=== PATIENT | male | born 1980 | race Caucasian/White ===

== ENCOUNTER 2024-11-28 22:44 | Emergency (ER) | payer SELFPAY ==
[2024-11-28 22:45] VITALS: BP 150/109; PULSE 97; RESP 18; TEMP 36.1; O2SAT 97; BMI 25.7
--- NOTE | 2024-11-28 23:16 | CT_ITS ---
PROCEDURE: ABDOMEN/PELVIS W IV CONT ONLY 11/28/2024 REASON FOR EXAM: RIGHT GROIN ABSCESS VS HERNIA TECHNIQUE: ABDOMEN/PELVIS W IV CONT ONLY Coronal and Sagittal reconstruction series were provided. CONTRAST: Isovue 370 VOLUME: 97 mL One or more dose reduction techniques were used (e.g., Automated exposure control, adjustment of the mA and/or kV according to patient size, use of iterative reconstruction technique. RADIATION DOSE SUMMARY: CTDlvol: 20 mGy DLP: 950 mGycm COMPARISON: No FINDINGS: Clear lung bases. Normal heart size. Liver is within normal limits for size with diffuse hepatic steatosis. Possible medical liver disease. Normal gallbladder, pancreas, spleen, adrenal glands, kidneys. No hydronephrosis. Possible bladder wall hypertrophy. Normal prostate. No retroperitoneal or pelvic adenopathy. No free air. Nondistended bowel. Normal appendix. Diverticulosis. No acute large bowel findings. Lumbar spine degeneration. In the right inguinal region, there is a 1.8 cm cysts/abscess, series 2, image 111, and additional 1 cm cyst/abscess, series 2, image 114, with surrounding fat scanning and overlying skin thickening. No extension to bone or muscle. CT/Abdomen/Pelvis W IV Cont ONLY IMPRESSION: Right inguinal region cysts/abscesses, surrounding cellulitis. Ultrasound guid ed aspiration could be performed if clinically appropriate. Reading Location: [place] [id number]
[2024-11-28] MEDS: 0.9% Normal Saline (1000mL) 1,000 ML 1000 ML IV (23:29)
--- NOTE | 2024-11-28 23:31 | EDS_ITS ---
HPI History of Present Illness Chief Complaint: Other, Pain/Inj Narrative Narrative: Chief complaint and HPI: Right groin pain/swelling. 44-year-old male with history of alcohol abuse and asthma presents for evaluation of right groin pain/swelling. Patient states for several months he has had a small lump in his right groin. States yesterday it became more painful, swollen, red. He states occasionally he gets night sweats but denies any fever, chills, shortness of breath, chest pain, abdominal pain, nausea, vomiting, diarrhea, constipation, dysuria, hematuria, testicular or penile pain, penile discharge. No concern for STI. Patient states that he also developed right ankle swelling/pain today. He states that this is not abnormal for him as he occasionally develops ankle pain and swelling that periodically resolves on its own. He denies any recent surgery or travel. Denies any calf pain. Denies any injury or trauma. Review of systems: See HPI Medications: As listed on the chart Allergies: As listed on the chart PFSH: Per chart Vital signs: As listed on the chart. Reviewed. Physical exam: Gen: A&O x3, NAD Head: Normocephalic, atraumatic Eyes: No sclera icterus, conjunctiva clear ENT: Moist mucous membranes Neck: Trachea midline, No JVD CV: RRR, no murmurs, no peripheral edema Resp: Lungs CTA BL, no w/r/c GI: Abd soft, non-distended, non-tender, no r/r/g : Circumcised penis. No penile tenderness or discharge. No penile or testicular swelling. Normal lie and position of the testicles. No testicular tenderness, masses, or skin changes. Cremasteric reflexes intact and equal bilaterally. No rashes. No palpable hernias. Patient has an area of erythema to the right groin and with fluctuance and warm-suspect abscess-no crepitus Musc: Full ROM, no deformity, strength, +5/5 in all extremities, right ankle mildly tender to palpation diffusely-no swelling/erythema/warmth/ecchymosis, DP/PT pulses +2 bilaterally, good capillary refill, compartments soft, negative Homans' sign Skin: Warm, dry Neuro: Alert, oriented, grossly intact, sensation intact Psych: Cooperative, appropriate mood and affect [facility] Medical History (Updated 11/29/24 @ 01:[address] Hill Perales, DO) Contact with and (suspected) exposure to other viral communicable diseases Home Medications ?Medication ?Instructions ?Recorded ?Last Taken ?Type albuterol sulfate 90 mcg/actuation 1 puff inhalation Q 4H PRN PRN 09/07/13 Unknown History aerosol inhaler (ProAir HFA) Wheezing hydrocortisone 2.5 % topical cream 1 applic topical TI D PRN PRN 09/07/13 Unknown Rx Itching #1 tube lansoprazole 15 mg capsule,delayed 15 mg PO DAILY 08/2811/29/24 History release (Prevacid) amoxicillin 875 mg-potassium 1 tab PO BID 7 days #14 t abs 11/29/24 Unknown Rx clavulanate 125 mg tablet Allergy/AdvReac Type Severity Reaction Status Date / Time No Known Allergies Allergy Verified 11/29/24 01:02 Social History Smoking Status: Current every day smoker tobacco type: cigarettes EXAM Physical Exam Const Vital Signs: 11/28/24 22:45 11/28/24 23:30 11/29/24 00:45 Temperature 97 F L Temperature Source Temporal Pulse Rate 97 87 Respiratory Rate 18 16 Respiratory Effort Normal Non-Labored Respiratory Pattern Normal Blood Pressure 150/109 H 170/134 H Blood Pressure Mean 122 146 Pulse Ox 97 99 Oxygen Delivery Method Room Air Room Air 11/29/24 01:47 Temperature 97.7 F L Temperature Source Pulse Rate 79 Respiratory Rate 16 Respiratory Effort Respiratory Pattern Blood Pressure 162/98 H Blood Pressure Mean 119 Pulse Ox 98 Oxygen Delivery Method MDM MDM MDM Narrative Medical decision making narrative: 44-year-old male with history of alcohol abuse and asthma presents for evaluation of right groin pain/swelling. Patient states for several months he has had a small lump in his right groin. States yesterday it became more painful, swollen, red. He states occasionally he gets night sweats but denies any fever, chills. Also endorses right ankle pain and swelling that started today. States he has a history of this periodically. Denies any injury or trauma. See physical exam findings. Patient's physical exam finding is consistent with a right groin abscess however given that he states that he always has a small lump there with intermittent night sweats cannot rule out hernia, pelvic abscess, bacteremia, UTI. Not consistent with Danika's gangrene. May also be infected cyst. His right ankle is unremarkable. He denies any trauma or injury therefore I do not think any x-rays needed at this time. Low suspicion for DVT however fully cannot rule this out as I do not have vascular ultrasound available at this time. Patient will be given study for DVT outpatient. He confirmed understanding. Laboratory workup ordered including CT abdomen pelvis. CBC without leukocytosis patient has hemoconcentration with a hemoglobin of 17. Platelet count unremarkable. BMP shows hypokalemia of 3.1. P.o. potassium ordered. Lactic acid unremarkable. CT abdomen pelvis shows diffuse hepatic steatosis. Diverticulosis without diverticulitis. In the right inguinal region there is a 1.8 cm cyst/abscess with surrounding cellulitis. No extension to bone or muscle. Patient will require I&D. UA negative for UTI. Patient consented to incision and drainage and tolerated this well. Patient will be placed on a 7-day course of Augmentin. First dose given here. Follow- up with general surgery for wound check as well as PCP. Patient was educated on his fatty liver. He was educated that the potassium was low. Take [id number] potassium replacement for the next several days. Follow-up with PCP to have this rechecked. He confirmed understanding of plan. Return precautions explained. Was educated that packing needs to be removed in 24 hours. Follow-up with primary care physician for his right ankle pain as there is no clear indication for this at this time. Was given outpatient DVT study. Incision and Drainage Indication: Abscess Location: Right groin Consent: Risks, benefits, and alternatives discussed with patient and consent obtained Procedure: The area was prepared and draped in the usual sterile manner. The site was anesthetized with 1% lidocaine with epinephrine. A cruciate incision was made in the skin and minimal purulent material was expressed. The abscess was explored thoroughly, and sequestered pockets were opened. The abscess pocket was irrigated. Bleeding was minimal. The patient tolerated the procedure well without complications. Packin/4 inch iodoform packing Follow-Up: Standard post-procedure care was explained and return precautions were given Impression: 1. Right groin abscess, status post incision and drainage with packing 2. Right ankle pain Lab Data Labs: Laboratory Results - last 24 hr 11/28/24 11/29/24 23:28 00:00 WBC 6.1 RBC 5.16 Hgb 17.0 H Hct 47.0 MCV 91.1 MCH 32.9 H MCHC 36.2 H RDW Std Deviation 40.4 RDW Coeff of Marco A 12.0 Plt Count 211 MPV 9.5 Immature Gran % (Auto) 0.500 Neut % (Auto) 60.5 Lymph % (Auto) 24.8 [place] % (Auto) 9.9 Eos % (Auto) 3.3 Baso % (Auto) 1.0 Absolute Neuts (auto) 3.7 Absolute Lymphs (auto) 1.51 Nucleated RBC % 0 Sodium 140 Potassium 3.1 L Chloride 102 Carbon Dioxide 22.9 Anion Gap 15 BUN 9 Creatinine 0.78 Estim Creat Clear Calc 137.59 Est GFR (MDRD) Non-Af 111 BUN/Creatinine Ratio 11.2 Glucose 104 H Lactic Acid 1.2 Calcium 9.1 Urine Color Straw Urine Clarity Clear Urine pH 6.0 Ur Specific [place] 1.010 Urine Protein 30 H Urine Glucose (UA) Normal Urine Ketones Negative Urine Occult Blood 10 H Urine Nitrite Negative Urine Bilirubin Negative Urine Urobilinogen Normal Ur Leukocyte Esterase Negative Urine RBC 0-5 SEEN Urine WBC 0-5 SEEN Ur Squamous Epith Cells 0 SEEN Urine Bacteria 0 SEEN Urine Mucus 0 SEEN Radiography Diagnostic Testing: Clinical Impression(s) from Imaging Studies Abdomen/Pelvis CT 11/28/24 23:16 IMPRESSION: Right inguinal region cysts/abscesses, surrounding cellulitis. Ultrasound guided aspiration could be performed if clinically appropriate. Reading Location: [place] [address] Discharge Plan Triage Chief Complaint: Other, Pain/Inj ED Provider: Hill Perales Dx/Rx/DC Orders Clinical Impression: Abscess of groin, right, Ankle pain, right Instructions: ED Abscess Incision And Drainage, ED Pain, Acute, Uncertain Cause Prescriptions: New amoxicillin-pot clavulanate 875-125 mg tablet 1 tab PO BID 7 Days Qty: 14 0RF No Action lansoprazole [Prevacid] 15 MG capsule 15 mg PO DAILY albuterol sulfate [ProAir HFA] 1 PUFF inhaler 1 puff inhalation Q4H PRN PRN (Reason: Wheezing) hydrocortisone 1 APPLIC cream 1 applic topical TID PRN PRN (Reason: Itching) Qty: 1 0RF Other Ambulatory Orders: Venous Duplex US, Unilateral (Stat) Facility: [facility] Location[facility] Primary Care Provider: Care Physician,No Primary Referrals: Ector Garcia MD [Med Staff - Active Staff] - 3-5 Days Mike Bee MD [Med Staff - Active Staff] - 3-5 Days Activity Restrictions/Additional Instructions: Follow-up with general surgeon for wound check. Okay to shower in 24 hours and pull out packing at that time. No soaking in the bath tubs, hot tubs, lakes, [place], oceans, swimming pools until fully healed. Take all of your antibiotics. You received the first dose here in the emergency department. Return back to the ED if symptoms change or worsen. Follow-up with your PCP for your right ankle pain. Return back to the ED if worsens. Will give outpatient DVT study. Your potassium was low here in the emergency department take [id number] potassium pills and have it rechecked by your primary care physician. Your CT abdomen pelvis did show fatty liver which you need to follow-up with your doctor. Print Language: Azeri Disposition Disposition: Home, Self Care Discharge Date/Time: 11/29/24 02:00
[2024-11-29 00:04] LABS: Anion Gap 15 (5-15); BUN 9 mg/dL (4-19); BUN/Creat Ratio 11.2 RATIO (10-20); Calcium,Total 9.1 mg/dL (7.6-11.0); Carbon Dioxide 22.9 mmol/L (21.0-32.0); Chloride 102 mmol/L (98-108); Estimated Creatinine Clearance 137.59 ml/min (50-250); Glucose 104 mg/dL (70-99); Potassium 3.1 mmol/L (3.3-5.1)
[2024-11-29 00:09] LABS: Mucous, Urine 0 SEEN /hpf (<or=2+); Squamous Epithelial Cells - UA 0 SEEN /hpf (0-5)
[2024-11-29 00:14] LABS: Hematocrit 47.0 % (40-54); Hemoglobin 17.0 g/dL (13.0-16.5); Immature Granulocytes Count 0.030 X10^3/uL (0.0-0.0); Mean Corp Hgb Conc 36.2 g/dL (32-36); Mean Corpuscular Volume 91.1 fL (80-94); Mean Platelet Vol. 9.5 fl (6.2-12.0); NRBC Flagged by Analyzer 0 % (0-5); Platelet Count 211 K/mm3 (150-450); RBC Distribution Width CV 12.0 % (11.6-14.6); RBC Distribution Width SD 40.4 fl (35.1-43.9); Red Blood Count 5.16 M/mm3 (4.6-6.2); White Blood Count 6.1 K/mm3 (4.4-11.0)
[2024-11-29 00:14] LABS: Color, Urine Straw (Yellow); Glucose, Dipstick Normal (Normal); Ketone-Dipstick Negative (Negative); Leukocyte Esterase-Dipstick Negative /ul (Negative); Nitrite-Dipstick Negative (Negative); Occult Blood-Urine 10 /ul (Negative); Protein-Dipstick 30 mg/dl (Negative); Specific Gravity, Urine 1.010 (1.002-1.030); Urine Bilirubin Dipstick Negative (Negative)
--- OUTSIDE RECORDS SUMMARY | 2024-11-29 00:28 | XMS RPT_ITS | CCD ---
Author Organization [facility] Care Team Providers Care Money Market Dealer Name Role Phone Andre Hughes Attending Unavailable Care Physician, No Primary Referring Unava ilable Care Physician, No Primary Primary Care Unava ilable Problems Problem Classification Problem Date Documented Da te Episodic/Chronic Immunizations and screening for infectious disease (1 source) Contact with and (suspected) exposure to other viral communicable diseases; Translations: [Contact with and (suspected) exposure to other viral communicable diseases] Onset: 05-28-2022 Episodic Results Test Name Value Interpretation Reference Range Facil it Urgent Care Visit Reporton 1 Urgent Care Visit Report [facility] [address] [place] [address] OFFICE VISIT Date of Service: 05/28/22 MR#: [id number] Acct: [id number] Name: HAILEEANNA II Rep #: [id number] : 1980 Provider: RANJEET villarreal Age/Sex: 41/M Location: [facility] Status: Signed Intake Vital Signs 09/07/13 17:05 05/28/22 14:18 Height 6 ft 1 in 6 ft 1.25 in Weight: 191 lb BMI 25.0 BP 140/82 H Blood Pressure Location Lt brachial Position Sitting Respiration 20 H Pulse 86 Pulse Source Monitor Temp 98.4 F Temp Source Temporal Pulse Oximetry (%) 97 Oxygen Delivery Method room air Intake Visit Reasons: RUNNY NOSE, COUGH, DIRRHEA Allergies No Known Allergies Allergy (Verified 05/28/22 14:19) Medications albuterol sulfate 90 mcg/actuation aerosol inhaler (ProAir HFA) 1 puff inhalation Q4H PRN PRN Wheezing 09/07/13 [History Confirmed 05/28/22] hydrocortisone 2.5 % topical cream 1 applic topical TID PRN PRN Itching #1 tube 09/07/13 [Rx Confirmed 05/28/22] lansoprazole 15 mg capsule,delayed release (Prevacid) 15 mg PO DAILY 09/07/13 [History Confirmed 05/28/22] loratadine 10 mg tablet (Allergy Relief (loratadine)) 10 mg PO DAILY 09/07/13 [History Confirmed 05/28/22] [facility] Medical History (Updated 05/28/22 @ 14:46 by Andre Hughes PA, PA) Contact with and (suspected) exposure to other viral communicable diseases Social History Smoking Status: Current every day smoker HPI HPI Details: ANNA STEPHEN, is a 41 M who presents to the office today for 48 hr h/o fever, pierre, fatigue, runny nose, and diarrhea (resolved 24 hrs ago). No cp. sob, quezada. Smoker. Several close contacts with similar complaints. No otc p[roducts taken to assist. No other associated symptoms and no other +/- factors. ROS Const Constitutional: No other (as above) Exam Const General: cooperative, healthy appearing and no acute distress Nutritional Appearance: average body habitus Orientation: alert, awake and oriented x3 HENMT Head: normal to inspection Ears: hearing grossly normal bilaterally, external ears normal, TM's normal bilaterally and EAC's normal Nose: external nose normal, nares normal, septum normal and no nasal discharge Eyes General: appearance normal, both eyes and all related structures Neck Neck: normal visual inspection, full ROM, no lymphadenopathy, no meningeal signs and supple Neck mass: No Thyroid: thyroid normal Lymphatic: no lymphadenopathy noted Chest Chest palpation inspection: normal inspection of the chest Resp Effort Inspection: normal respiratory effort and able to speak in complete sentences Auscultation: Bilateral: Clear to Auscultation Cardio Palpation: normal PMI Rate: regular rate Rhythm: regular rhythm Heart Sounds: S1 normal, S2 normal, no gallops, no murmurs and no rubs Pulses: radial pulses present GI Inspection: normal to inspection Palpation: soft and no hepatosplenomegaly Skin General: no rashes or lesions noted Neuro General: patient alert, patient awake, patient oriented x3 and gait normal Cognition: normal cognition Speech: speech normal Gait: normal gait Motor: muscle tone normal throughout Sensory Exam: no sensory deficits noted Psych Appearance: grossly normal Mental Status: mental status grossly normal Mood: congruent mood Affect: normal affect Speech and Movement: speech and movement normal Attitude: cooperative Thought Process: normal Thought Content: normal Judgment: judgment good Results POC GEETA Covid FluAB PCR POC Geeta Covid PCR Not Detected Last Edit by Nydia David on 05/28/22 14:41 POC GEETA FLU NOT DETECTED FLU A B Last Edit by Nydia David on 05/28/22 14:41 Coding Level of Care Code Off vis,new,level 2 Diagnoses Contact with and (suspected) exposure to other viral communicable diseases Z20.828 Assessment and Plan Assessment and Plan (1) Contact with and (suspected) exposure to other viral communicable diseases: Status: Acute Plan: See POC results. Supportive measures as instructed today. F/u w/ pcp in 5-7 days prn no change, sooner prn worse. Pt states acknowledging understanding all the above. Orders: Orders POC Geeta Covid FLUAB PCR Today 05/28/22 1448 Date Andre POLLACK Cosigner Signature: Date (if applicable) CC: Normal [facility] Encounters Encounter Date Encounter Type Care Provider Facility Start: 05-28-2022 End: 05-28-2022 ambulatory Andre Hughes Facility:[facility] Payers Date Payer Category Payer Self-pay Unknown [id number] Summary Purpose Family History No Family History Records Found Advance Directives No Advanced Directives Records Found Additional Source Comments (unrecognized sect ion and content) No Status Records Found INFORMATION SOURCE (unrecogn ized section and content) DATE CREATED AUTHOR 05/28/2022 [facility] FOR RECORDS PERTAINING TO PATIENTS WHO ARE OR HAVE BEEN ENROLLED IN A CHEMICAL DEPENDENCY/SUBSTANCEABUSE PROGRAM, SOME INFORMATION MAY BE OMITTED. This clinical summary was aggregated from multiple sources. Caution should be exercised in using it in the provision of clinical care. This summary normalizes information from multiple sources, and as a consequence, information in this document may materially change the coding, format and clinical context of patient data. In addition, data may be omitted in some cases. CLINICAL DECISIONS SHOULD BE BASED ON THE PRIMARY CLINICAL RECORDS. [employer] [facility]. provides no warranty or guarantee of the accuracy or completeness of information in this document.
[2024-11-29 00:36] LABS: Red Blood Cells-Urine 0-5 SEEN /hpf (0-5)
[2024-11-29 00:45] VITALS: BP 170/134; PULSE 87; RESP 16; O2SAT 99
[2024-11-29] MEDS: Potassium Chloride Oral Soln 20 MEQ/15 ML UDC 40 MEQ PO (00:59)
[2024-11-29] MEDS: Lidocaine 1% /Epi 1:100 (20ml) 20 ML Vial INFILT (00:59)
[2024-11-29 01:47] VITALS: BP 162/98; PULSE 79; RESP 16; TEMP 36.5; O2SAT 98
== END 2024-11-29 02:00 | disposition home or self-care (01) ==
PROVIDERS: Emergency Provider Surgery; Visit Provider Surgery
DX: L02.214 Cutaneous abscess of groin (principal); M25.571 Pain in right ankle and joints of right foot; F17.210 Nicotine dependence, cigarettes, uncomplicated; Z79.51 Long term (current) use of inhaled steroids
CPT/HCPCS: 74177; 80048; 81001; 83605; 85025; 87040; 96360; 96361; 99283; Q9967; A4216

== ENCOUNTER 2025-02-06 16:46 | Emergency (ER) | payer SELFPAY ==
[2025-02-06 16:47] VITALS: BP 127/83; PULSE 96; RESP 20; TEMP 36.6; O2SAT 100; BMI 25.7
--- NOTE | 2025-02-06 17:18 | EDS_ITS ---
HPI History of Present Illness Chief Complaint: Abscess Narrative Narrative: Chief complaint and HPI: 44-year-old male with history of alcohol abuse and asthma presents for evaluation of right groin pain/swelling. Patient was seen for this prior on 11/28/2024 in which he had a right groin abscess that required incision and drainage by me. Patient states his symptoms improved until a couple days ago when he developed recurrent right groin pain and swelling. States it feels similar to his previous abscess. Associated symptoms are symptomatic fevers, nausea, vomiting. Denies any shortness of breath, chest pain, abdominal pain, diarrhea, constipation, dysuria, hematuria, testicular or penile pain, penile discharge. No concern for STI. Review of systems: See HPI Medications: As listed on the chart Allergies: As listed on the chart PFSH: Per chart Vital signs: As listed on the chart. Reviewed. Physical exam: Gen: A&O x3, NAD Head: Normocephalic, atraumatic Eyes: No sclera icterus, conjunctiva clear ENT: Moist mucous membranes Neck: Trachea midline, No JVD CV: RRR, no murmurs, no peripheral edema Resp: Lungs CTA BL, no w/r/c GI: Abd soft, non-distended, non-tender, no r/r/g : Circumcised penis. No penile tenderness or discharge. No penile or testicular swelling. Normal lie and position of the testicles. No testicular tenderness, masses, skin changes. Cremasteric reflexes intact and equal bilaterally. No palpable hernias. Patient has an area of erythema to the right groin with fluctuance and warmth consistent with abscess-no crepitus-size is approximately 2 x 2 cm, area is nonpulsatile Musc: Full ROM, no deformity Skin: Warm, dry Neuro: Alert, oriented, grossly intact, sensation intact Psych: Cooperative, appropriate mood and affect [facility] Medical History (Updated 12/07/24 @ 00:01 by Background Dayoanon) Contact with and (suspected) exposure to other viral communicable diseases Home Medications ?Medication ?Instructions ?Recorded ?Last Taken ?Type albuterol sulfate 90 mcg/actuation 1 puff inhalation Q 4H PRN PRN 09/07/13 Unknown History aerosol inhaler (ProAir HFA) Wheezing Allergy/AdvReac Type Severity Reaction Status Date / Time No Known Allergies Allergy Verified 02/06/25 16:48 Social History Smoking Status: Current every day smoker tobacco type: cigarettes EXAM Physical Exam Const Vital Signs: 02/06/25 16:47 Temperature 97.8 F Temperature Source Oral Pulse Rate 96 Respiratory Rate 20 H Blood Pressure 127/83 H Blood Pressure Mean 97 Pulse Ox 100 Oxygen Delivery Method Room Air MDM MDM MDM Narrative Medical decision making narrative: 44-year-old male with history of alcohol abuse, asthma, previous right groin abscess presents for evaluation of right groin pain/swelling. Patient was seen for same complaint on 11/28/2024 in which he had a right groin abscess that required incision and drainage by me. He was also written antibiotics and told to follow-up with general surgery. Patient states his symptoms improved until a couple days ago when he developed recurrent right groin pain and swelling. He never followed up with general surgery. States it feels similar to his previous abscess. Associated symptoms are symptomatic fevers, nausea, vomiting. On presentation, patient no acute distress. He is afebrile. Nontoxic-appearing. He does have approximately 2 x 2 cm right groin abscess similar to previous. Differential diagnosis includes but is not limited to right groin abscess, bacteremia, UTI given his symptomatic fevers with nausea and vomiting. Physical exam is not consistent with Danika's gangrene. May also be an infected cyst. Patient will warrant incision and drainage as well as infectious laboratory workup including UA. Patient declined. States that he does not want a incision and drainage performed given that the lidocaine injections hurt. I did endorse understanding that the injections can be painful however I did explain to him as well as significant other in the room that the standard of care is incision and drainage and that this abscess will likely not improve with the antibiotics alone. I explained that I would like to perform some infectious labs given his systemic symptoms. He declined and states that he does not want an IV and labs drawn I personally explained to him that choosing not to perform labs as well incision and drainage can result in permanently bodily harm or even if he develops Danika's gangrene or septic infection such as bacteremia. I discussed at length that without further workup and incision and drainage there may be unforeseen circumstances and deterioration causing permanently body harm because of his choice. He is alert and oriented and can make his own decisions. He states that he is aware of the serious risks as explained, but that he continues to not have further workup including labs and incision and drainage. States he only wants antibiotics. Significant other is in the room and was present during the conversation. Although I do not agree with the patient's wishes, he is alert and oriented and able to make his own decisions. He will be placed on a 7-day course of Augmentin. First dose given here. Zofran as needed for nausea and vomiting. Strict return precautions were given. He was educated that he needs to follow-up with general surgery as well as his PCP to have the abscess reevaluated in 48 hours. He confirmed understanding. Patient discharged home. Impression: 1. Right groin abscess 2. Symptomatic fever 3. Nausea Discharge Plan Triage Chief Complaint: Abscess ED Provider: Hill Perales Dx/Rx/DC Orders Prescriptions: No Action albuterol sulfate [ProAir HFA] 1 PUFF inhaler 1 puff inhalation Q4H PRN PRN (Reason: Wheezing) Primary Care Provider: Care Physician,No Primary Referrals: Care Physician,No Primary [Primary Care Provider] - Print Language: Mosotho
--- NOTE | 2025-02-06 18:06 | CM.ED ---
Social Work Reason for visit: No PCP Patient confirmed that he does not currently have a PCP and also asked for information regarding local surgeons. SW gave patient [facility] provider list and [facility] information as patient is private pay. No further needs identified at this time. Rose Dillon, CAFE WORKER, RUSSIAN LANGUAGE INSTRUCTOR
== END 2025-02-06 18:08 | disposition home or self-care (01) ==
PROVIDERS: Emergency Provider Surgery; Visit Provider Surgery
DX: L02.214 Cutaneous abscess of groin (principal); R50.9 Fever, unspecified; R11.0 Nausea; J45.909 Unspecified asthma, uncomplicated; Z53.20 Procedure and treatment not carried out because of patient's decision for unspecified reasons; F10.10 Alcohol abuse, uncomplicated; F17.210 Nicotine dependence, cigarettes, uncomplicated
CPT/HCPCS: 99282

== ENCOUNTER 2025-04-05 22:15 | Inpatient (IN) | payer SELFPAY ==
[2025-04-05 22:15] VITALS: BP 133/101; PULSE 100; RESP 14; TEMP 36.9; O2SAT 98; BMI 23.6
--- NOTE | 2025-04-05 23:00 | CT_ITS ---
PROCEDURE: ABDOMEN/PELVIS W IV CONT ONLY 04/05/2025 REASON FOR EXAM: ABDOMINAL PAIN TECHNIQUE: Procedure Code: [id number] Modality: CT Procedure: ABDOMEN/PELVIS W IV CONT ONLY Coronal and Sagittal reconstruction series were provided. CONTRAST: VOLUME: mL One or more dose reduction techniques were used (e.g., Automated exposure control, adjustment of the mA and/or kV according to patient size, use of iterative reconstruction technique. COMPARISON: 11/28/2024. FINDINGS: The visualized lung bases are clear. Mild fatty liver and hepatomegaly, with the liver measuring 26 cm in its greatest dimension. These findings are unchanged from the previous study. The gallbladder, pancreas, spleen, adrenal glands, kidneys, and urinary bladder appear unremarkable. No evidence of a bowel obstruction. Mild wall thickening of the sigmoid colon could be due to partial decompression, however mild colitis can not be excluded. There is also mild thickening of the ascending colon, which could also represent mild colitis.. The appendix is visualized and unremarkable. No intraperitoneal free air. A small amount of free fluid is seen within the lower pelvis, which could be due to mild inflammatory changes within the peritoneal cavity. No abdominal nor pelvic lymphadenopathy. No acute osseous abnormality. No acute fracture. A small lipoma is noted within the left gluteus medius muscle. Previously noted subcutaneous fluid collection in the right inguinal region is significantly smaller than the previous study and now measures a proximally 6 mm (series 2, image 119) and likely represents a tiny abscess. CT/Abdomen/Pelvis W IV Cont ONLY IMPRESSION: Mild wall thickening of the ascending and sigmoid colon could represent mild co litis. Similar findings of mild colonic wall thickening are noted on the previous study. Interval reduction in the size of the tiny subcutaneous abscess in the right in guinal region. Reading Location: [id number]
[2025-04-05 23:15] LABS: Hematocrit 31.1 % (40-54); Hemoglobin 11.5 g/dL (13.0-16.5); Immature Granulocytes Count 0.140 X10^3/uL (0.0-0.0); Mean Corp Hgb Conc 37.0 g/dL (32-36); Mean Corpuscular Volume 89.1 fL (80-94); Mean Platelet Vol. 11.6 fl (6.2-12.0); NRBC Flagged by Analyzer 0 % (0-5); Platelet Count 163 K/mm3 (150-450); RBC Distribution Width CV 14.2 % (11.6-14.6); RBC Distribution Width SD 46.0 fl (35.1-43.9); Red Blood Count 3.49 M/mm3 (4.6-6.2); White Blood Count 17.0 K/mm3 (4.4-11.0)
[2025-04-05] MEDS: 0.9% Normal Saline (1000mL) 1,000 ML 999 ML IV (23:24)
[2025-04-05 23:35] LABS: AST(SGOT) 158 U/L (<=37); Alanine Aminotransfer ALT/SGPT 50 U/L (<=46); Albumin, Serum 3.2 g/dL (3.5-5.0); Alkaline Phosphatase 265 U/L (40-129); Anion Gap 14 (5-15); BUN 13 mg/dL (4-19); BUN/Creat Ratio 14.0 RATIO (10-20); Bilirubin, Direct 7.43 mg/dL (0.00-0.30); Calcium,Total 8.6 mg/dL (7.6-11.0); Carbon Dioxide 36.0 mmol/L (21.0-32.0); Chloride 79 mmol/L (98-108); Estimated Creatinine Clearance 109.80 ml/min (50-250); Globulin 3.3 g/dL (2.2-4.2); Glucose 104 mg/dL (70-99); Potassium 1.8 mmol/L (3.3-5.1)
--- OUTSIDE RECORDS SUMMARY | 2025-04-05 23:36 | XMS RPT_ITS | CCD ---
Author Organization [facility] Care Team Providers Care Route Sales Trainee Name Role Phone Care Physician, No Primary Primary Care Provider Unavailable Dr. Hill Perales DO Emergency Provider Dr. Hill Perales DO Attending Provider Hill Perales Attending [facility] e Care Physician, No Primary Primary Care Unava ilable Hill Perales Attending [facility] e Care Physician, No Primary Primary Care Unava ilable Medications Current Medications Medication Drug Class(es) Dates Sig (Normalized) Sig (Original) Albuterol Sulfate (Proair Hfa) 1 PUFF inhaler (2 sources) Start: 09-07-2013 Albuterol Sulfate (Proair Hfa) 1 PUFF inhaler Active 1 NMA INHALATION EVERY 4 HOURS NEEDED as needed for Wheezing September 07, 2013 12:00am amoxicillin 875 mg / clavulanate 125 mg oral tablet (3 sources) Penicillin-class Antibacterial Start: 11-29-2024 End: 02-06-2025 Amoxicillin-Pot Clavulanate 875-125 mg tablet Active 1 {tbl} PO TWICE A DAY 14 7 0 February 06, 2025 12:00am ondansetron 4 mg disintegrating oral tablet (1 source) Serotonin-3 Receptor Antagonist Start: 02-06-2025 take 1 tablet by mouth every eight hours as needed for nausea Ondansetron 4 mg tablet,disintegra ting Active 4 mg PO EVERY 8 HOURS NEEDED as needed for Nausea 10 February 06, 2025 12:00am Completed/Discontinued Medications Medication Drug Class(es) Dates Sig (Normalized) Sig (Original) hydrocortisone 25 mg/ml topical cream (2 sources) Corticosteroid Start: 09-07-2013 End: 02-06-2025 Hydrocortisone 1 APPLIC cream Discontinued 1 NMA TOPICAL 3 TIMES DAILY NEEDED as needed for Itching 1 0 September 07, 2013 12:00am February 06, 2025 5:15pm lansoprazole 15 mg delayed release oral capsule (2 sources) Proton Pump Inhibitor Start: 09-07-2013 End: 02-06-2025 take 1 capsule by mouth once daily Lansoprazole (Prevacid) 15 MG capsule Discontinued 15 mg PO DAILY September 07, 2013 12:00am February 06, 2025 5:15pm loratadine 10 mg oral tablet (2 sources) Start: 09-07-2013 End: 11-29-2024 take 1 tablet by mouth once daily Loratadine (Claritin) 10 MG tablet Discontinued 10 mg PO DAILY September 07, 2013 12:00am November 29, 2024 1:03am Problems Problem Classification Problem Date Documented Da te Episodic/Chronic Abdominal pain (1 source) Right lower quadrant pain; Translations: [Right lower quadrant pain] Onset: 12-04-2024 Episodic Immunizations and screening for infectious disease (2 sources) Contact with and (suspected) exposure to other viral communicable diseases; Translations: [Contact with or suspected exposure to other viral communicable disease] 05-28-2022 Episodic Other connective tissue disease (1 source) Other specified soft tissue disorders; Translations: [Other specified soft tissue disorders] Onset: 02-11-2025 Episodic Other non-traumatic joint disorders (2 sources) Ankle pain; Translations: [Pain in right ankle and joints of right foot] 11-29-2024 Episodic Other skin disorders (2 sources) Vesicular eczema; Translations: [Dyshidrosis [pompholyx]] 09-07-2013 Episodic Skin and subcutaneous tissue infections (3 sources) Abscess of groin; Translations: [Cutaneous abscess of groin] 11-29-2024 Episodic Results Test Name Value Interpretation Reference Range Facility Emergency Department Summary on 02-06-2025 Emergency Department Summary [facility] Medical Records Department [address] [place] [address] Emergency Department Summary 02/06/25 MR#: [id number] Acct: [id number] Name: ANNA STEPHEN NIKKIE Rep #: [id number] : 1980 44 From: Hill Perales DO PCP: Care Physician,No Primary Status:REG ER Location: ED HPI History of Present Illness Chief Complaint: Abscess Narrative Narrative: Chief complaint and HPI: 44-year-old male with history of alcohol abuse and asthma presents for evaluation of right groin pain/swelling. Patient was seen for this prior on 11/28/2024 in which he had a right groin abscess that required incision and drainage by me. Patient states his symptoms improved until a couple days ago when he developed recurrent right groin pain and swelling. States it feels similar to his previous abscess. Associated symptoms are symptomatic fevers, nausea, vomiting. Denies any shortness of breath, chest pain, abdominal pain, diarrhea, constipation, dysuria, hematuria, testicular or penile pain, penile discharge. No concern for STI. Review of systems: See HPI Medications: As listed on the chart Allergies: As listed on the chart PFSH: Per chart Vital signs: As listed on the chart. Reviewed. Physical exam: Gen: A O x3, NAD Head: Normocephalic, atraumatic Eyes: No sclera icterus, conjunctiva clear ENT: Moist mucous membranes Neck: Trachea midline, No JVD CV: RRR, no murmurs, no peripheral edema Resp: Lungs CTA BL, no w/r/c GI: Abd soft, non-distended, non-tender, no r/r/g : Circumcised penis. No penile tenderness or discharge. No penile or testicular swelling. Normal lie and position of the testicles. No testicular tenderness, masses, skin changes. Cre masteric reflexes intact and equal bilaterally. No palpable hernias. Patient has an area of erythema to the right groin with fluctuance and warmth consistent with abscess-no crepitus-size is approximately 2 x 2 cm, area is nonpulsatile Musc: Full ROM, no deformity Skin: Warm, dry Neuro: Alert, oriented, grossly intact, sensation intact Psych: Cooperative, appropriate mood and affect [facility] Medical History (Updated 12/07/24 @ 00:01 by Background Dasammy) Contact with and (suspected) exposure to other viral communicable diseases Home Medications ???Medication ???Instructions ???Recorded ???Last Taken ???Type albuterol sulfate 90 mcg/actuation 1 puff inhalation Q4H PRN PRN Unknown History aerosol inhaler (ProAir HFA) Wheezing Allergy/AdvReac Type Severity Reaction Status Date / Time No Known Allergies Allergy Verified 02/06/25 16:48 Social History Smoking Status: Current every day smoker tobacco type: cigarettes EXAM Physical Exam Const Vital Signs: 02/06/25 16:47 Temperature 97.8 F Temperature Source Oral Pulse Rate 96 Respiratory Rate 20 H Blood Pressure 127/83 H Blood Pressure Mean 97 Pulse Ox 100 Oxygen Delivery Method Room Air MDM MDM MDM Narrative Medical decision making narrative: 44-year-old male with history of alcohol abuse, asthma, previous right groin abscess presents for evaluation of right groin pain/swelling. Patient was seen for same complaint on 11/28/2024 in which he had a right groin abscess that required incision and drainage by me. He was also written antibiotics and told to follow-up with general surgery. Patient states his symptoms improved until a couple days ago when he developed recurrent right groin pain and swelling. He never followed up with general surgery. States it feels similar to his previous abscess. Associated symptoms are symptomatic fevers, nausea, vomiting. On presentation, patient no acute distress. He is afebrile. Nontoxic-appearing. He does have approximately 2 x 2 cm right groin abscess similar to previous. Differential diagnosis includes but is not limited to right groin abscess, bacteremia, UTI given his symptomatic fevers with nausea and vomiting. Physical exam is not consistent with Danika's gangrene. May also be an infected cyst. Patient will warrant incision and drainage as well as infectious laboratory workup including UA. Patient declined. States that he does not want a incision and drainage performed given that the lidocaine injections hurt. I did endorse understanding that the injections can be painful however I did explain to him as well as significant other in the room that the standard of care is incision and drainage and that this abscess will likely not improve with the antibiotics alone. I explained that I would like to perform some infectious labs given his systemic symptoms. He declined and states that he does not want an IV and labs drawn I personally explained to him that choosing not to perform labs as well incision and drainage can result in permanently bodily harm or even i (more content not included)... Normal [facility] Culture, Blood (WB)on 2024 CUB Blood cultures x2, from two different sites No growth in 5 days. Normal [facility] Comment on above: Performed By: #### M 200.1000 #### [facility] [address] [place], [address] Basic Metabolic Profile (BMP )on 11-29-2024 BUN/CRE 11.2 RATIO Normal 10-20 [facility] Comment on above: Performed By: #### L 100.0100, L503.6005, L500.2500 #### [facility] [address] [place], [address] Calcium [Mass/Vol] 9.1 mg/dL Normal 7.6-11.0 [facility] Comment on above: Performed By: #### L 100.0100, L503.6005, L500.2500 #### [facility] [address] [place], [address] Chloride [Moles/Vol] 102 mmol/L Normal 98-108 [facility] Comment on above: Performed By: #### L 100.0100, L503.6005, L500.2500 #### [facility] [address], [address] CO2 [Moles/Vol] 22.9 mmol/L Normal 21.0-32.0 [facility] Comment on above: Performed By: #### L 100.0100, L503.6005, L500.2500 #### [facility] [address] [place], [address] Creatinine [Mass/Vol] 0.78 mg/dL Normal 0.70-1.20 [facility] Comment on above: Performed By: #### L 100.0100, L503.6005, L500.2500 #### [facility] [address] [place], [address] ECRCL 137.59 ml/min Normal 50-250 [facility] Comment on above: Performed By: #### L 100.0100, L503.6005, L500.2500 #### [facility] [address] [place], [address] GAP 15 Normal 5-15 [facility] Comment on above: Performed By: #### L 100.0100, L503.6005, L500.2500 #### [facility] [address] [place], [address] GFR/1.73 sq M.predicted among non-blacks MDRD (S/P/Bld) [Vol rate/Area] 111 mL/min/{1.73_m2} Normal >60 [facility] Comment on above: Result Comment: mL/m in/1.73m2 CKD-EPI Creatinine Equation (2020) Performed By: #### L 100.0100, L503.6005, L500.2500 #### [facility] [address] [place], [address] Glucose [Mass/Vol] 104 mg/dL High 70-99 [facility] Comment on above: Performed By: #### L 100.0100, L503.6005, L500.2500 #### [facility] [address] [place], [address] Potassium [Moles/Vol] 3.1 mmol/L Low 3.3-5.1 [facility] Comment on above: Performed By: #### L 100.0100, L503.6005, L500.2500 #### [facility] [address] [place], [address] Sodium [Moles/Vol] 140 mmol/L Normal 133-145 [facility] Comment on above: Performed By: #### L 100.0100, L503.6005, L500.2500 #### [facility] [address] [place], [address] Urea nitrogen [Mass/Vol] 9 mg/dL Normal 4-19 [facility] Comment on above: Performed By: #### L 100.0100, L503.6005, L500.2500 #### [facility] [address] [place], [address] Bilirubin Test strip Ql (U)O rdered By: Hill Perales on 11-29-2024 Bilirubin Ql (U) Negative Negative [facility] Blood cultureOrdered By: Brandon Perales on 11-29-2024 Bacteria identified Cx Nom (Bld) No growth in 5 days. [facility] CBC W/Diff, Automatedon 07-0 Absolute Lymph 1.51 X10 3/uL Normal 0.83-4.51 [facility] Comment on above: Performed By: #### L 100.0100, L503.6005, L500.2500 #### [facility] [address] [place], [address] Absolute Neut 3.7 X10 3/uL Normal 2.0-7.7 [facility] Comment on above: Performed By: #### L 100.0100, L503.6005, L500.2500 #### [facility] [address] [place], [address] Basophils/100 WBC (Bld) 1.0 % Normal 0-1 [facility] Comment on above: Performed By: #### L 100.0100, L503.6005, L500.2500 #### [facility] [address] [place], [address] Eosinophils/100 WBC (Bld) 3.3 % Normal 0-5 [facility] Comment on above: Performed By: #### L 100.0100, L503.6005, L500.2500 #### [facility] [address] [place], [address] Erythrocyte distribution width (RBC) [Ratio] 12.0 % Normal 11.6-14.6 [facility] Comment on above: Performed By: #### L 100.0100, L503.6005, L500.2500 #### [facility] [address] [place], [address] Hematocrit (Bld) [Volume fraction] 47.0 % Normal 40-54 [facility] Comment on above: Performed By: #### L 100.0100, L503.6005, L500.2500 #### [facility] [address] [place], [address] Hemoglobin (Bld) [Mass/Vol] 17.0 g/dL High 13.0-16.5 [facility] Comment on above: Performed By: #### L 100.0100, L503.6005, L500.2500 #### [facility] [address] [place], [address] IG% 0.500 Normal 0.0-0.9 [facility] Comment on above: Result Comment: IG% - Immature Granulocytes (promyelocytes, myelocytes and metamyelocytes) > 1% indicates that a LEFT SHIFT is Present. Performed By: #### L 100.0100, L503.6005, L500.2500 #### [facility] [address] [place], [address] Lymphocytes/100 WBC (Bld) 24.8 % Normal 19-41 [facility] Comment on above: Performed By: #### L 100.0100, L503.6005, L500.2500 #### [facility] [address] [place], [address] MCH (RBC) [Entitic mass] 32.9 pg High 27.0-32.0 [facility] Comment on above: Performed By: #### L 100.0100, L503.6005, L500.2500 #### [facility] [address] [place], [address] MCHC (RBC) [Mass/Vol] 36.2 g/dL High 32-36 [facility] Comment on above: Performed By: #### L 100.0100, L503.6005, L500.2500 #### [facility] [address] [place], [address] MCV (RBC) [Entitic vol] 91.1 fL Normal 80-94 [facility] Comment on above: Performed By: #### L 100.0100, L503.6005, L500.2500 #### [facility] [address] [place], [address] Monocytes/100 WBC (Bld) 9.9 % Normal 0-10 [facility] Comment on above: Performed By: #### L 100.0100, L503.6005, L500.2500 #### [facility] [address] [place], [address] Neutrophils/100 WBC (Bld) 60.5 % Normal 47-70 [facility] Comment on above: Performed By: #### L 100.0100, L503.6005, L500.2500 #### [facility] [address] [place], [address] Nucleated RBC (Bld) [#/Vol] 0 10*3/uL Normal 0-5 [facility] Comment on above: Performed By: #### L 100.0100, L503.6005, L500.2500 #### [facility] [address] [place], [address] Platelet mean volume (Bld) [Entitic vol] 9.5 fL Normal 6.2-12.0 [facility] Comment on above: Performed By: #### L 100.0100, L503.6005, L500.2500 #### [facility] [address] [place], [address] Platelets (Bld) [#/Vol] 211 10*3/uL Normal 150-450 [facility] Comment on above: Performed By: #### L 100.0100, L503.6005, L500.2500 #### [facility] [address] [place], [address] RBC (Bld) [#/Vol] 5.16 10*6/uL Normal 4.6-6.2 [facility] Comment on above: Performed By: #### L 100.0100, L503.6005, L500.2500 #### [facility] [address] [place], [address] RDW SD 40.4 fl Normal 35.1-43.9 [facility] Comment on above: Performed By: #### L 100.0100, L503.6005, L500.2500 #### [facility] [address] [place], [address] WBC (Bld) [#/Vol] 6.1 10*3/uL Normal 4.4-11.0 [facility] Comment on above: Performed By: #### L 100.0100, L503.6005, L500.2500 #### [facility] [address] [place], [address] Ketones Test strip Ql (U)Ord ered By: Hill Perales on 11-29-2024 Ketones Ql (U) Negative Negative [facility] Lactic Acidon 11-29-2024 Lactate [Moles/Vol] 1.2 mmol/L Normal 0.0-2.0 [facility] Comment on above: Order Comment: Y Performed By: #### L 100.0100, L503.6005, L500.2500 #### [facility] [address] [place], [address] Microscopic analysis of urin e for red blood cells (RBC)Ordered By: Hill Perales on 11-29-2024 Microscopic analysis of urine for red blood cells (RBC) 0-5 SEEN /hpf 0-5 [facility] Mucus LM Ql (Urine sed)Order ed By: Hill Perales on 11-29-2024 Mucus Ql (Urine sed) 0 SEEN /hpf [facility] Protein Test strip Ql (U)Ord ered By: Hill Perales on 11-29-2024 Protein Ql (U) 30 mg/dl High Negative [facility] Squamous epithelial cells de tection in urine sediment by light microscopyOrdered By: Hill Perales on 11-29-2024 Epithelial cells.squamous LM Ql (Urine sed) 0 SEEN /hpf 0-5 [facility] Urinalysis, Completeon 11-29 RBC 0-5 SEEN Normal 0-5 [facility] Comment on above: Order Comment: VEE CTOR TO SPECIFY Performed By: #### L 400.0001 #### [facility] [address] [place], [address] WBC 0-5 SEEN Normal 0-5 [facility] Comment on above: Order Comment: VEE CTOR TO SPECIFY Performed By: #### L 400.0001 #### [facility] [address] [place], [address] BILIRUBIN URINE Negative Normal Negative [facility] Comment on above: Order Comment: VEE CTOR TO SPECIFY Performed By: #### L 400.0001 #### [facility] [address] [place], [address] GLUCOSE, UR Normal Normal Normal [facility] Comment on above: Order Comment: VEE CTOR TO SPECIFY Performed By: #### L 400.0001 #### [facility] [address] [place], [address] KETONE UR Negative Normal Negative [facility] Comment on above: Order Comment: VEE CTOR TO SPECIFY Performed By: #### L 400.0001 #### [facility] [address] [place], [address] LEUK ESTERASE Negative Normal Negative [facility] Comment on above: Order Comment: VEE CTOR TO SPECIFY Performed By: #### L 400.0001 #### [facility] [address] [place], [address] OCCULT BLOOD-UR 10 /ul Abnormal Negative [facility] Comment on above: Order Comment: VEE CTOR TO SPECIFY Performed By: #### L 400.0001 #### [facility] [address] [place], [address] pH UR 6.0 Normal 5.0 - 8.0 [facility] Comment on above: Order Comment: VEE CTOR TO SPECIFY Performed By: #### L 400.0001 #### [facility] [address] [place], [address] PROT DIPSTX 30 mg/dl Abnormal Negative [facility] Comment on above: Order Comment: VEE CTOR TO SPECIFY Performed By: #### L 400.0001 #### [facility] [address] [place], [address] SP.GR. DIPSTX 1.010 Normal 1.002-1.030 [facility] Comment on above: Order Comment: VEE CTOR TO SPECIFY Performed By: #### L 400.0001 #### [facility] [address] [place], [address] UROBILI Normal Normal Normal [facility] Comment on above: Order Comment: VEE CTOR TO SPECIFY Performed By: #### L 400.0001 #### [facility] [address] [place], [address] BACTERIA 0 SEEN Normal None Seen [facility] Comment on above: Order Comment: VEE CTOR TO SPECIFY Performed By: #### L 400.0001 #### [facility] [address] [place], [address] EPI,SQUAMOUS 0 SEEN Normal 0-5 [facility] Comment on above: Order Comment: VEE CTOR TO SPECIFY Performed By: #### L 400.0001 #### [facility] [address] [place], [address] Mucus Ql (Urine sed) 0 SEEN Normal [facility] Comment on above: Order Comment: VEE CTOR TO SPECIFY Performed By: #### L 400.0001 #### [facility] [address] [place], [place], [address] Urine clarityOrdered By: Brandon Perales on 11-29-2024 Clarity (U) Clear Normal Clear [facility] Comment on above: Order Comment: VEE CTOR TO SPECIFY Performed By: #### L 400.0001 #### [facility] [address] [place], [place], [address] Urine color determinationOrd ered By: Hill Perales on 11-29-2024 Color (U) Straw Normal Yellow [facility] Comment on above: Order Comment: VEE CTOR TO SPECIFY Performed By: #### L 400.0001 #### [facility] [address] [place], [address] Urine glucose detectionOrder ed By: Hill Perales on 11-29-2024 Glucose Ql (U) Normal mg/dl Normal [facility] Urine leukocyte esterase det ection by dipstickOrdered By: Hill Perales on 11-29-2024 Leukocyte esterase Test strip Ql (U) Negative Negative [facility] Urine nitrite test by dipsti ckOrdered By: Hill Perales on 11-29-2024 Nitrite Ql (U) Negative Normal Negative [facility] Comment on above: Order Comment: VEE CTOR TO SPECIFY Performed By: #### L 400.0001 #### [facility] [address] [place], [place], [address] Urine pHOrdered By: Hill Felder on 11-29-2024 pH (U) 6.0 [pH] 5.0 - 8.0 [facility] Urine sediment bacteria coun t by microscopy (number/high power field)Ordered By: Hill Perales on 11-29-2024 Bacteria LM.HPF (Urine sed) [#/Area] 0 /[HPF] None Seen [facility] Urine specific gravity measu rementOrdered By: Hill Perales on 11-29-2024 Specific gravity (U) [Rel density] 1.010 1.002-1.030 [facility] Urine urobilinogen measureme ntOrdered By: Hill Perales on 11-29-2024 Urobilinogen Ql (U) Normal mg/dl Normal [facility] White blood cell countOrdere d By: Hill Perales on 11-29-2024 White blood cell count 0-5 SEEN /hpf 0-5 [facility] Abdomen/Pelvis W IV Cont ONL Yon 11-28-2024 Abdomen/Pelvis W IV Cont ONLY [facility] Imaging Services [address] [place] [address] Abdomen/Pelvis W IV Cont ONLY MR#: [id number] Acct: [id number] Name: HAILEEANNAGhulam Hussein II Rep #: [id number] : 1980 M 44 From: Amilcar Mcneil MD PCP: Care Physician,No Primary Status: PRE ER Study: Abdomen/Pelvis W IV Cont ONLY Date of Exam: Exam# [id number] Ordering Dr: Delfino Perales DO PROCEDURE: ABDOMEN/PELVIS W IV CONT ONLY 11/28/2024 REASON FOR EXAM: RIGHT GROIN ABSCESS VS HERNIA TECHNIQUE: ABDOMEN/PELVIS W IV CONT ONLY Coronal and Sagittal reconstruction series were provided. CONTRAST: Isovue 370 VOLUME: 97 mL One or more dose reduction techniques were used (e.g., Automated exposure control, adjustment of the mA and/or kV according to patient size, use of iterative reconstruction technique. RADIATION DOSE SUMMARY: CTDlvol: 20 mGy DLP: 950 mGycm COMPARISON: No FINDINGS: Clear lung bases. Normal heart size. Liver is within normal limits for size with diffuse hepatic steatosis. Possible medical liver disease. Normal gallbladder, pancreas, spleen, adrenal glands, kidneys. No hydronephrosis. Possible bladder wall hypertrophy. Normal prostate. No retroperitoneal or pelvic adenopathy. No free air. Nondistended bowel. Normal appendix. Diverticulosis. No acute large bowel findings. Lumbar spine degeneration. In the right inguinal region, there is a 1.8 cm cysts/abscess, series 2, image 111, and additional 1 cm cyst/abscess, series 2, image 114, with surrounding fat scanning and overlying skin thickening. No extension to bone or muscle. CT/Abdomen/Pelvis W IV Cont ONLY IMPRESSION: Right inguinal region cysts/abscesses, surrounding cellulitis. Ultrasound guided aspiration could be performed if clinically appropriate. Reading Location: [place] [address] CC: Dr. Hill Perales, DO; No Primary Care Physician Second Steward: Signed Normal [facility] Absolute lymphocyte countOrd ered By: Hill Perales on 11-28-2024 Lymphocytes Auto (Unsp spec) [#/Vol] 1.51 10*3/uL 0.83-4.51 [facility] Absolute neutrophil countOrd ered By: Hill Perales on 11-28-2024 Neutrophils (Bld) [#/Vol] 3.7 10*3/uL 2.0-7.7 [facility] Anion gap in Serum or Plasma Ordered By: Hill Perales on 11-28-2024 Anion gap [Moles/Vol] 15 mmol/L 5-15 [facility] Automated lymphocyte count a s percentage of total leukocytesOrdered By: Hill Perales on 11-28-2024 Lymphocytes/100 WBC Auto (Unsp spec) 24.8 % 19-41 [facility] BUN/creatinine ratioOrdered By: Hill Perales on 11-28-2024 Urea nitrogen/Creatinine [Mass ratio] 11.2 mg/mg 10-20 [facility] Basophil percentageOrdered B y: Hill Perales on 11-28-2024 Basophils/100 WBC (Bld) 1.0 % 0-1 [facility] Blood cultureOrdered By: Brandon Perales on 11-28-2024 Bacteria identified Cx Nom (Bld) No growth in 5 days. [facility] Carbon dioxide, total [Moles /volume] in Central venous bloodOrdered By: Hill Perales on 11-28-2024 CO2 [Moles/Vol] 22.9 mmol/L 21.0-32.0 [facility] Chloride assayOrdered By: Mason Perales on 11-28-2024 Chloride [Moles/Vol] 102 mmol/L 98-108 [facility] Emergency Department Summary on 11-28-2024 Emergency Department Summary [facility] Medical Records Department [address] [place] [address] Emergency Department Summary 11/28/24 MR#: [id number] Acct: [id number] Name: ANNA STEPHEN II Rep #: [id number] : 1980 44 From: Hill Perales DO PCP: Care Physician,No Primary Status:DEP ER Location: ED HPI History of Present Illness Chief Complaint: Other, Pain/Inj Narrative Narrative: Chief complaint and HPI: Right groin pain/swelling. 44-year-old male with history of alcohol abuse and asthma presents for evaluation of right groin pain/swelling. Patient states for several months he has had a small lump in his right groin. States yesterday it became more painful, swollen, red. He states occasionally he gets night sweats but denies any fever, chills, shortness of breath, chest pain, abdominal pain, nausea, vomiting, diarrhea, constipation, dysuria, hematuria, testicular or penile pain, penile discharge. No concern for STI. Patient states that he also developed right ankle swelling/pain today. He states that this is not abnormal for him as he occasionally develops ankle pain and swelling that periodically resolves on its own. He denies any recent surgery or travel. Denies any calf pain. Denies any injury or trauma. Review of systems: See HPI Medications: As listed on the chart Allergies: As listed on the chart PFSH: Per chart Vital signs: As listed on the chart. Reviewed. Physical exam: Gen: A O x3, NAD Head: Normocephalic, atraumatic Eyes: No sclera icterus, conjunctiva clear ENT: Moist mucous membranes Neck: Trachea midline, No JVD CV: RRR, no murmurs, no peripheral edema Resp: Lungs CTA BL, no w/r/c GI: Abd soft, non-distended, non-tender, no r/r/g : Circumcised penis. No penile tenderness or discharge. No penile or testicular swelling. Normal lie and position of the testicles. No testicular tenderness, masses, or skin changes. Cremasteric reflexes intact and equal bilaterally. No rashes. No palpable hernias. Patient has an area of erythema to the right groin and with fluctuance and warm-suspect abscess-no crepitus Musc: Full ROM, no deformity, strength, +5/5 in all extremities, right ankle mildly tender to palpation diffusely-no swelling/erythema/w armth/ecchymosis, DP/PT pulses +2 bilaterally, good capillary refill, compartments soft, negative Homans' sign Skin: Warm, dry Neuro: Alert, oriented, grossly intact, sensation intact Psych: Cooperative, appropriate mood and affect [facility] Medical History (Updated 11/29/24 @ 01:[address] Hill Perales, DO) Contact with and (suspected) exposure to other viral communicable diseases Home Medications ???Medication ???Instructions ???Recorded ???Last Taken ???Type albuterol sulfate 90 mcg/actuation 1 puff inhalation Q4H PRN PRN Unknown History aerosol inhaler (ProAir HFA) Wheezing hydrocortisone 2.5 % topical cream 1 applic topical TID PRN PRN 04/12 Unknown Rx Itching #1 tube lansoprazole 15 mg capsule,delayed 15 mg PO DAILY 09/07/13 11/29/24 History release (Prevacid) amoxicillin 875 mg-potassium 1 tab PO BID 7 days #14 tabs 11/29 Unknown Rx clavulanate 125 mg tablet Allergy/AdvReac Type Severity Reaction Status Date / Time No Known Allergies Allergy Verified 11/29/24 01:02 Social History Smoking Status: Current every day smoker tobacco type: cigarettes EXAM Physical Exam Const Vital Signs: 11/28/24 22:45 11/28/24 23:30 11/29/24 00:45 Temperature 97 F L Temperature Source Temporal Pulse Rate 97 87 Respiratory Rate 18 16 Respiratory Effort Normal Non-Labored Respiratory Pattern Normal Blood Pressure 150/109 H 170/134 H Blood Pressure Mean 122 146 Pulse Ox 97 99 Oxygen Delivery Method Room Air Room Air 07/03/25 01:47 Temperature 97.7 F L Temperature Source Pulse Rate 79 Respiratory Rate 16 Respiratory Effort Respiratory Pattern Blood Pressure 162/98 H Blood Pressure Mean 119 Pulse Ox 98 Oxygen Delivery Method MDM MDM MDM Narrative Medical decision making narrative: 44-year-old male with history of alcohol abuse and asthma presents for evaluation of right groin pain/swelling. Patient states for several months he has had a small lump in his right groin. States yesterday it became more painful, swollen, red. He states occasionally he gets night sweats but denies any fever, chills. Also endorses right ankle pain and swelling that started today. States he has a history of this periodically. Denies any injury or trauma. See physical exam findings. Patient's physical exam finding is consistent with a right groin abscess however given that he states that he always has a small lump there with intermittent night sweats cannot rule out hernia, pelvic abscess, (more content not included)... Normal [facility] Eosinophil percentageOrdered By: Hill Perales on 11-28-2024 Eosinophils/100 WBC (Bld) 3.3 % 0-5 [facility] Erythrocyte distribution wid th ratioOrdered By: [facility]il[facility] on 11-28-2024 Erythrocyte distribution width (RBC) [Ratio] 12.0 % 11.6-14.6 [facility] Erythrocyte distribution wid th standard deviationOrdered By: Hilldariel Holder on 11-28-2024 Erythrocyte distribution width (RBC) [Ratio] 40.4 fl 35.1-43.9 [facility] Glomerular filtration rate ( GFR) estimation/1.73 sq m using serum, plasma, or whole bOrdered By: Hill Perales on 11-28-2024 GFR/1.73 sq M.predicted among non-blacks MDRD (S/P/Bld) [Vol rate/Area] 111 mL/min/{1.73_m2} >60 [facility] Comment on above: mL/min/1.73m2 CKD-EP I Creatinine Equation (2020) Hematocrit Auto (Bld) [Volum e fraction]Ordered By: Hill Perales on 11-28-2024 Hematocrit (Bld) [Volume fraction] 47.0 % 40-54 [facility] Hemoglobin measurementOrdere d By: Hill Perales on 11-28-2024 Hemoglobin (Bld) [Mass/Vol] 17.0 g/dL High 13.0-16.5 [facility] Immature granulocytes/100 WB C Auto (Bld)Ordered By: Hill Perales on 11-28-2024 Immature granulocytes/100 WBC (Bld) 0.500 % 0.0-0.9 [facility] Comment on above: IG% - Immature Granu locytes (promyelocytes, myelocytes and metamyelocytes) > 1% indicates that a LEFT SHIFT is Present. Lactic acid measurementOrder ed By: Hill Perales on 11-28-2024 Lactate [Moles/Vol] 1.2 mmol/L 0.0-2.0 [facility] MCV (mean corpuscular volume ) determinationOrdered By: Hill Perales on 11-28-2024 MCV (RBC) [Entitic vol] 91.1 fL 80-94 [facility] Mean corpuscular hemoglobin (MCH) determinationOrdered By: Paterson Angella on 11-28-2024 MCH (RBC) [Entitic mass] 32.9 pg High 27.0-32.0 [facility] Mean corpuscular hemoglobin concentration (MCHC) determinationOrdered By: Hill Perales on 11-28-2024 MCHC (RBC) [Mass/Vol] 36.2 g/dL High 32-36 [facility] Mean platelet volume determi nationOrdered By: Hill Perales on 11-28-2024 Platelet mean volume (Bld) [Entitic vol] 9.5 fL 6.2-12.0 [facility] Monocyte percentageOrdered B y: Hill Perales on 11-28-2024 Monocytes/100 WBC (Bld) 9.9 % 0-10 [facility] Neutrophil percentageOrdered By: Hill Perales on 11-28-2024 Neutrophils/100 WBC (Bld) 60.5 % 47-70 [facility] Nucleated red blood cell per centageOrdered By: Hill Perales on 11-28-2024 Nucleated RBC/100 WBC (Bld) [Ratio] 0 % 0-5 [facility] Platelet countOrdered By: Mason Perales on 11-28-2024 Platelets (Bld) [#/Vol] 211 10*3/uL 150-450 [facility] Potassium measurement (mass/ volume)Ordered By: Hill Perales on 11-28-2024 Potassium (Unsp spec) [Mass/Vol] 3.1 mmol/L Low 3.3-5.1 [facility] RBC Auto (Bld) [#/Vol]Ordere d By: Hill Perales on 11-28-2024 RBC (Bld) [#/Vol] 5.16 10*6/uL 4.6-6.2 [facility] Serum creatinine measurement (mass/volume)Ordered By: Hill Perales on 11-28-2024 Creatinine [Mass/Vol] 0.78 mg/dL 0.70-1.20 [facility] Serum glucose measurement (m ass/volume)Ordered By: Hill Perales on 11-28-2024 Glucose [Mass/Vol] 104 mg/dL High 70-99 [facility] Serum or plasma calcium isabelle urement (mass/volume)Ordered By: Hill Holder on 11-28-2024 Calcium [Mass/Vol] 9.1 mg/dL 7.6-11.0 [facility] Serum or plasma urea nitroge n measurement (mass/volume)Ordered By: Hill Perales on 11-28-2024 Urea nitrogen [Mass/Vol] 9 mg/dL 4-19 [facility] Sodium levelOrdered By: Delfino Perales on 11-28-2024 Sodium [Moles/Vol] 140 mmol/L 133-145 [facility] White blood cell (WBC) count Ordered By: Hill Perales on 11-28-2024 WBC (Bld) [#/Vol] 6.1 10*3/uL 4.4-11.0 [facility] Vital Signs Date Time Vital Sign Value Performing Clinician Elian zarco 02-06-2025 16:47-0400 Body height 187.96 cm No Primary Care Physician [facility] 02-06-2025 16:47-0400 Body mass index (BMI) [Ratio] 25.7 kg/m2 No Primary Care Physician [facility] 02-06-2025 16:47-0400 Body temperature 97.8 [degF] No Primary Care Physician [facility] 02-06-2025 16:47-0400 Body weight 90.71 kg No Primary Care Physician [facility] 02-06-2025 16:47-0400 Diastolic blood pressure 83 mm[Hg] No Primary Care Physician [facility] 02-06-2025 16:47-0400 Heart rate 96 /min No Primary Care Physician [facility] 02-06-2025 16:47-0400 Respiratory rate 20 /min No Primary Care Physician [facility] 02-06-2025 16:47-0400 SaO2% (BldA) [Mass fraction] 100 % No Primary Care Physician [facility] 02-06-2025 16:47-0400 Systolic blood pressure 127 mm[Hg] No Primary Care Physician [facility] 11-29-2024 01:47-0400 Body temperature 97.7 [degF] No Primary Care Physician [facility] 11-29-2024 01:47-0400 Diastolic blood pressure 98 mm[Hg] No Primary Care Physician [facility] 11-29-2024 01:47-0400 Heart rate 79 /min No Primary Care Physician [facility] 11-29-2024 01:47-0400 Respiratory rate 16 /min No Primary Care Physician [facility] 11-29-2024 01:47-0400 SaO2% (BldA) [Mass fraction] 98 % No Primary Care Physician [facility] 11-29-2024 01:47-0400 Systolic blood pressure 162 mm[Hg] No Primary Care Physician [facility] 11-28-2024 22:45-0400 Body height 187.96 cm No Primary Care Physician [facility] 11-28-2024 22:45-0400 Body mass index (BMI) [Ratio] 25.7 kg/m2 No Primary Care Physician [facility] 11-28-2024 22:45-0400 Body weight 91 kg No Primary Care Physician [facility] Encounters Encounter Date Encounter Type Care Provider Facility Start: 02-06-2025 End: 02-06-2025 Emergency department patient visit No Primary Care Physician -Emergency Department Work Phone: Start: 11-28-2024 End: 11-29-2024 Emergency department patient visit No Primary Care Physician -Emergency Department Work Phone: Procedures Date Procedure Procedure Detail Performing Clinician Start: 11-29-2024 Blood culture No Primar y Care Physician Start: 11-29-2024 Urnls dip stick/tabl et reagent auto microscopy No Primary Care Physician Start: 11-28-2024 Estimated creatinine clearance No Primary Care Physician Start: 11-28-2024 Computed tomography of abdomen and pelvis with intravenous contrast No Primary Care Physician Start: 11-28-2024 Blood culture No Primar y Care Physician Plan of Treatment Date Care Activity Detail Author Start: 02-06-2025 [facility] Start: 11-29-2024 Bacteria identified in Blood by Culture Blood Culture [facility] Start: 11-29-2024 US.doppler Lower ext remity vein [facility] Start: 11-29-2024 [facility] Start: 11-28-2024 [facility] Start: 11-28-2024 Bacteria identified in Blood by Culture Blood Culture [facility] Patient Education [facility] Work Phone: Payers Date Payer Category Payer Self-pay Self-pay [id number] Unknown Unknown [id number] Unknown [id number] Social History Date Type Detail Facility Start: 11-28-2024 End: 02-06-2025 Tobacco smoking status NHIS Smokes tobacco daily (finding) [facility] Start: 1980 Sex Assigned At Male [facility] Mental Status Date Assessment Result Facility 11-28-2024 Cognitive function Level Of Cons ciousness Awake;Alert;Appropriate [facility] Work Phone: Discharge summary 02-06-2025 Note Date & Type Note Facility 02-06-2025 Discharge summary [facility] Discharge summary 02-06-2025 Note Date & Type Note Facility 02-06-2025 Discharge summary Note Date/Time February 06, 2025 6:00pm [facility] Medical Records Department [address] [place] [address] Emergency Department Summary 02/06/25 MR#: [id number] Acct: [id number] Name: ANNA STEPHEN II Rep #:[id number] : 1980 44 From: Hill martinez DO PCP: Care Physician,No Primary Status :REG ER Location: ED HPI History of Present Illness Chief Complaint: Abscess Narrative Narrative: Chief complaint and HPI: 44-year-old male with history of alcohol abuse and asthma presents for evaluation of right groin pain/swelling. Patient was seen for this prior on 11/28/2024 in which he had a right groin abscess that required incision and drainage by me. Patient states his symptoms improved until a couple days ago when he developed recurrent right groin pain and swelling. States it feels similar to his previous abscess. Associated symptoms are symptomatic fevers, nausea, vomiting. Denies any shortness of breath, chest pain, abdominal pain, diarrhea, constipation, dysuria, hematuria, testicular or penile pain, penile discharge. No concern for STI. Review of systems: See HPI Medications: As listed on the chart Allergies: As listed on the chart PFSH: Per chart Vital signs: As listed on the chart. Reviewed. Physical exam: Gen: A&O x3, NAD Head: Normocephalic, atraumatic Eyes: No sclera icterus, conjunctiva clear ENT: Moist mucous membranes Neck: Trachea midline, No JVD CV: RRR, no murmurs, no peripheral edema Resp: Lungs CTA BL, no w/r/c GI: Abd soft, non-distended, non-tender, no r/r/g : Circumcised penis. No penile tenderness or discharge. No penile or testicular swelling. Normal lie and position of the testicles. No testicular tenderness, masses, skin changes. Cremasteric reflexes intact and equal bilaterally. No palpable hernias. Patient has an area of erythema to the rightgroin with fluctuance and warmth consistent with abscess-no crepitus-size is approximately 2 x 2 cm, area is nonpulsatile Musc: Full ROM, no deformity Skin: Warm, dry Neuro: Alert, oriented, grossly intact, sensation intact Psych: Cooperative, appropriate mood and affect [facility] Medical History (Updated 12/07/24 @ 00:01 by Background Daemkirill) Contact with and (suspected) exposure to other viral communicable diseases Home Medications ?Medication ?Instructions ?Recorded ?Last Taken ?Type albuterol sulfate 90 mcg/actuation 1 puff inhalation Q 4H PRN PRN 09/07/13 Unknown History aerosol inhaler (ProAir HFA) Wheezing Allergy/AdvReac Type Severity Reaction Status Date / Time No Known Allergies Allergy Verified 02/06/25 16:48 Social History Smoking Status: Current every day smoker tobacco type: cigarettes EXAM Physical Exam Const Vital Signs: 02/06/25 16:47 Temperature 97.8 F Temperature Source Oral Pulse Rate 96 Respiratory Rate 20 H Blood Pressure 127/83 H Blood Pressure Mean 97 Pulse Ox 100 Oxygen Delivery Method Room Air MDM MDM MDM Narrative Medical decision making narrative: 44-year-old male with history of alcohol abuse, asthma, previous right groin abscess presents for evaluation of right groin pain/swelling. Patient was seen for same complaint on 11/28/2024 in which he had a right groin abscess that required incision and drainage by me. He was also written antibiotics and told to follow-up with general surgery. Patient states his symptoms improved until acouple days ago when he developed recurrent right groin pain and swelling. He never followed up with general surgery. States it feels similar to his previousabscess. Associated symptoms are symptomatic fevers, nausea, vomiting. On presentation, patient no acute distress. He is afebrile. Nontoxic-appearing. He does have approximately 2 x 2 cm right groin abscess similar to previous. Differential diagnosis includes but is not limited to right groin abscess, bacteremia, UTI given his symptomatic fevers with nausea and vomiting. Physicalexam is not consistent with Danika's gangrene. May also be an infected cyst. Patient will warrant incision and drainage as well as infectious laboratory workup including UA. Patient declined. States that he does not want a incisionand drainage performed given that the lidocaine injections hurt. I did endorse understanding that the injections can be painful however I did explain to him aswell as significant other in the room that the standard of care is incision and drainage and that this abscess will likely not improve with the antibiotics alone. I explained that I would like to perform some infectious labs given his systemic symptoms. He declined and states that he does not want an IV and labs drawn I personally explained to him that choosing not to perform labs as well incision and drainage can result in permanently bodily harm or even if he develops Danika's gangrene or septic infection such as bacteremia. I discussed at length that without further workup and incision and drainage there may be unforeseen circumstances and deterioration causing permanently body harm because of his choice. He is alert and oriented and can make his own decisions. He states that he is aware of the serious risks as explained, but that he continues to not have further workup including labs and incision and drainage. States he only wants antibiotics. Significant other is in the room and was present during the conversation. Although I do not agree with the patient's wishes,he is alert and oriented and able to make his own decisions. He will be placed on a 7-day course of Augmentin. First dose given here. Zofran as needed for nausea and vomiting. Strict return precautions were given. He was educated that he needs to follow-up with general surgery as well as his PCP to have the abscess reevaluated in 48 hours. He confirmed understanding. Patient discharged home. Impression: 1. Right groin abscess 2. Symptomatic fever 3. Nausea Discharge Plan Triage Chief Complaint: Abscess ED Provider: Hill Perales Dx/Rx/DC Orders Prescriptions: No Action albuterol sulfate [ProAir HFA] 1 PUFF inhaler 1 puff inhalation Q4H PRN PRN (Reason: Wheezing) Primary Care Provider: Care Physician,No Primary Referrals: Care Physician,No Primary [Primary Care Provider] - Print Language: [place] Citizen What to do if you have Problems For any increased pain, shortness of breath, bleeding, nausea or vomiting, chestpain, or any unexpected problems, contact your Primary Care Provider. Call [facility] ([phone]) or report to the closest Emergency Room. Call 911 if necessary. 02/06/25 1800 <Electronically signed by Hill Klusty-Glory DO> Cosigner Signature (if applicable): CC: No Primary Care Physician ~ Signed [facility] Work Phone: Radiology Diagnostic study note 11-29-2024 Note Date & Type Note Facility 11-29-2024 Radiology Diagnostic study note [facility] Imaging Services [address] [place] [address] Abdomen/Pelvis W IV Cont ONLY MR#: [id number] Acct: [id number] Name: ANNA STEPHEN II Rep #: [id number] : 1980 M 44 From: Cecelia Mcneil MD PCP: Care Physician,No Primary Status: PRE ER Study:Abdomen/Pelvis W IV Cont ONLY Date of E xam: 11/28/24 Exam# [id number] Ordering Dr: Hill Sanchez DO PROCEDURE: ABDOMEN/PELVIS W IV CONT ONLY 11/28/2024 REASON FOR EXAM: RIGHT GROIN ABSCESS VS HERNIA TECHNIQUE: ABDOMEN/PELVIS W IV CONT ONLY Coronal and Sagittal reconstruction series were provided. CONTRAST: Isovue 370 VOLUME: 97 mL One or more dose reduction techniques were used (e.g., Automated exposure control, adjustment of the mA and/or kV according to patient size, use of iterative reconstruction technique. RADIATION DOSE SUMMARY: CTDlvol: 20 mGy DLP: 950 mGycm COMPARISON: No FINDINGS: Clear lung bases. Normal heart size. Liver is within normal limits for size with diffuse hepatic steatosis. Possiblemedical liver disease. Normal gallbladder, pancreas, spleen, adrenal glands, kidneys. No hydronephrosis. Possible bladderwall hypertrophy. Normal prostate. No retroperitoneal or pelvic adenopathy. No free air. Nondistended bowel. Normal appendix. Diverticulosis. No acute large bowel findings. Lumbar spine degeneration. In the right inguinal region, there is a 1.8 cm cysts/abscess, series 2, image 111, and additional 1 cm cyst/abscess, series 2, image 114, with surrounding fat scanning and overlying skin thickening. No extension to bone or muscle. CT/Abdomen/Pelvis W IV Cont ONLY IMPRESSION: Right inguinal region cysts/abscesses, surrounding cellulitis. Ultrasound guided aspiration could be performed if clinically appropriate. Reading Location: [place] [address] CC: Dr. Hill Perales, DO; No Primary Care Physician ~ Second Steward: Signed [facility] Evaluation note Note Date & Type Note Facility Evaluation note No assessment information availa ble [facility] Work Phone: Hospital Discharge instructions Note Date & Type Note Facility Hospital Discharge instructions Additional Instructions Follow-up with general surgeon for wound check. Okay to shower in 24 hours and pull out packing at that time. No soaking in the bath tubs, hot tubs, lakes, [place]nderson, oceans, swimming pools until fully healed. Take all of your antibiotics. You received the first dose here in the emergency department. Return back to the ED if symptoms change or worsen. Follow-up with your PCP for your right ankle pain. Return back to the ED if worsens. Will give outpatient DVT study. Your potassium was low here in the emergency department take elvd-axw-ticwcni potassium pills and have it rechecked by your primary care physician. Your CT abdomen pelvis did show fatty liver which you need to follow-up with your doctor. [facility] Work Phone: Hospital Discharge instructions Note Date & Type Note Facility Hospital Discharge instructions Additional Instructions Follow-up with general surgery and primary care physician. Return back to the ED if symptoms change or worsen. You need somebody to look at the abscess in the next 48 hours. Take all of your antibiotics, you were given the first dose here in the emergency department. [facility] Work Phone: Reason for referral (narrative) Note Date & Type Note Facility Reason for referral (narrative) No reason for referral information available [facility] Work Phone: Chief Complaint and Reason for Visit Chief Complaint Admit Date R GROIN PAIN, R ANKLE SWELLING November 28, 2024 10:44pm Chief Complaint Admit Date R GROIN PAIN, R ANKLE SWELLING November 28, 2024 10:44pm abcess February 06, 2025 4:46pm Advance Directives No Advanced Directives Records Found Advance Directive Response Recorded Date/ Time Do you have a Healthcare Power of Creosoting Engineer? No November 28, 2024 11:30pm Advance Directive Response Recorded Date/ Time Do you have a Healthcare Power of Creosoting Engineer? No November 28, 2024 11:30pm Do you have a Healthcare Power of Creosoting Engineer? No February 06, 2025 4:46pm Summary Purpose Family History No Family History Records Found Additional Source Comments Care Teams (unrecognized sec tion and content) Team Status: Active Member Role/Relationship Status Dates No Primary Care Physician Primary Care Provider Active Team Status: Inactive Member Role/Relationship Status Dates No Primary Care Physician Primary Care Provider Active Start: November 28, 2024 End: November 29, 2024 Dr. Hill Perales , DO Emergency Provider Activ e Start: November 28, 2024 End: November 29, 2024 Team Status: Inactive Member Role/Relationship Status Dates No Primary Care Physician Primary Care Provider Active Start: November 28, 2024 End: November 29, 2024 Dr. Hill Perales , DO Attending Provider Activ e Start: November 28, 2024 End: November 29, 2024 Dr. Hill Perales , DO Emergency Provider Activ e Start: November 28, 2024 End: November 29, 2024 Team Status: Inactive Member Role/Relationship Status Dates No Primary Care Physician Primary Care Provider Active Start: February 06, 2025 End: February 06, 2025 Dr. Hill Perales , DO Emergency Provider Active Start: January End: February 06, 2025 Goals (unrecognized section and content) Goals may be documented in a n alternate sectionGoals may be documented in an alternate section (unrecognized sect ion and content) No Status Records Found INFORMATION SOURCE (unrecogn ized section and content) DATE CREATED AUTHOR 02/12/2025 [facility] FOR RECORDS PERTAINING TO PATIENTS WHO [...] BE BASED ON THE PRIMARY CLINICAL RECORDS. [facility] [employer], [employer] [facility]. provides no warranty or guarantee of the accuracy or completeness of information in this document.
[2025-04-05 23:42] LABS: Mucous, Urine 0 SEEN /hpf (<or=2+); Red Blood Cells-Urine 0 SEEN /hpf (0-5); Squamous Epithelial Cells - UA 0 SEEN /hpf (0-5)
[2025-04-05 23:45] LABS: Prothrombin Time (Protime)PT. 15.2 SECONDS (11.7-14.9)
[2025-04-05 23:48] LABS: Color, Urine Amber (Yellow); Glucose, Dipstick Normal (Normal); Ketone-Dipstick 15 mg/dl (Negative); Leukocyte Esterase-Dipstick 25 /ul (Negative); Nitrite-Dipstick Positive (Negative); Occult Blood-Urine 10 /ul (Negative); Protein-Dipstick 30 mg/dl (Negative); Specific Gravity, Urine 1.010 (1.002-1.030)
[2025-04-05 23:57] LABS: Transitional Epithelial - Ur 0 SEEN /hpf (0-5); Urine Bilirubin Dipstick 6 mg/dL (Negative)
[2025-04-06] VITALS (8 sets, daily range): BP systolic 101–125; BP diastolic 58–77; PULSE 78–96; RESP 16–21; TEMP 36.6–37.1; O2SAT 96–98; BMI 23.3
--- NOTE | 2025-04-06 | EX.ED.DYSGE1 ---
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 [facility] Medical History Dyshidrotic eczema Tobacco abuse Contact with and (suspected) exposure to other viral communicable diseases Home Medications Medication Instructions Recorded Last Taken Type albuterol sulfate 90 mcg/actuation 1 puff inhalation Q4H PRN PRN 09/07/13 Unknown History aerosol inhaler (ProAir HFA) Wheezing amoxicillin 875 mg-potassium 1 tab PO BID 7 days #14 tabs 02/06/25 Unknown Rx clavulanate 125 mg tablet ondansetron 4 mg disintegrating 4 mg PO Q8H PRN PRN Nausea #10 tabs 02/06/25 Unknown Rx tablet Allergy/AdvReac Type Severity Reaction Status Date / Time No Known Allergies Allergy Verified 04/05/25 22:16 Social History housing: house Smoking Status: Current every day smoker tobacco type: cigarettes ROS ROS ED ROS Narrative Pertinent Positives: Generalized weakness having jaundice endorsing alcohol use abdominal pain Pertinent Negatives: Diarrhea black or bloody stools use of anticoagulation chest pain shortness of breath The remainder of review of systems negative unless otherwise stated in the HPI above. Systems reviewed including constitutional, psychiatric, cardiovascular, respiratory, integument, HENT, gastrointestinal. EXAM Physical Exam Narrative Exam Narrative: Patient is afebrile hemodynamically stable he is jaundiced no asterixis. Oxygenating well on room air with clear lung sounds bilaterally abdomen is soft nontender nondistended. No palpable pulsatile mass he has intact and equal MSPs in his extremities normal range of motion of his head and neck. Pupils equal round reactive to light. Const Vital Signs: 04/05/25 22:15 04/05/25 23:18 04/06/25 00:00 Temperature 98.4 F Temperature Source Oral Pulse Rate 100 88 Respiratory Rate 14 16 Respiratory Pattern Normal Blood Pressure 133/101 H 125/77 H Blood Pressure Mean 111 93 Pulse Ox 98 98 Oxygen Delivery Method Room Air 04/06/25 00:39 04/06/25 02:00 Temperature 98.2 F Temperature Source Pulse Rate 88 89 Respiratory Rate 16 21 H Respiratory Pattern Blood Pressure 125/77 H 119/70 Blood Pressure Mean 93 83 Pulse Ox 98 Oxygen Delivery Method MDM MDM MDM Narrative Medical decision making narrative: Nursing notes, triage notes, available previous documentation, and vital signs were reviewed. Any discrepancies noted were addressed. Differential Diagnoses: High suspicion for alcoholic hepatitis need to consider other hepatitis sources though need to also consider cholecystitis although lower suspicion for or ascending cholangitis Interventions: Magnesium sulfate, potassium replacement Fluids Given: 1 L normal saline Labs Reviewed: Leukocytosis 17 hemoglobin is 11.5 platelets are 163 INR of 1.2 patient's potassium was critically low at 1.8 we ended up repeating it it was 1.9 he is also hyponatremic hypochloremic he does have a slight lactic acidosis of 2.3 no renal insufficiency he does have a transaminitis with an AST of 158 ALT of 50 he is also having hyperbilirubinemia with total bili being 10.4 with direct being 7.4 toxicology screen is unremarkable Imaging Reviewed: Patient CT abdomen and pelvis showing mild colitis with thickening of the ascending and sigmoid colon Previous Documentation Reviewed: None available or applicable at this time. ED Course: Patient presenting with symptoms as stated above I did advise him he should seek alcohol cessation and rehab but first we were evaluating this patient I have a higher suspicion for alcoholic hepatitis on he was found to have a severely low potassium level we repeated it it was confirmed this way patient has multiple electrolyte derangements and transaminitis and hyperbilirubinemia. I had a [id number] discussion with Dr. Barrientos who is agreeable to admission I suspect that this patient does have alcoholic hepatitis This note was made utilizing voice recognition software. All attempts were made to correct spelling or other errors prior to note completion. However, due to the fast-paced nature of emergency medicine, some errors may still be present. Lab Data Labs: Laboratory Results - last 24 hr 04/05/25 04/05/25 04/05/25 22:35 23:33 23:41 WBC 17.0 H RBC 3.49 L Hgb 11.5 L Hct 31.1 L MCV 89.1 MCH 33.0 H MCHC 37.0 H RDW Std Deviation 46.0 H RDW Coeff of Marco A 14.2 Plt Count 163 MPV 11.6 Immature Gran % (Auto) 0.800 Neut % (Auto) 86.2 H Lymph % (Auto) 6.0 L Coffee % (Auto) 6.4 Eos % (Auto) 0.4 Baso % (Auto) 0.2 Absolute Neuts (auto) 14.6 H Absolute Lymphs (auto) 1.01 Nucleated RBC % 0 PT 15.2 H INR 1.2 Sodium 129 L 129 L Potassium 1.8 L* 1.9 L* Chloride 79 L 80 L Carbon Dioxide 36.0 H 35.7 H Anion Gap 14 14 BUN 13 13 Creatinine 0.95 0.92 Estim Creat Clear Calc 109.80 113.38 Est GFR (MDRD) Non-Af 100 105 BUN/Creatinine Ratio 14.0 14.5 Glucose 104 H 103 H Lactic Acid 2.3 H* Calcium 8.6 8.2 Magnesium 2.0 Total Bilirubin 10.40 H Direct Bilirubin 7.43 H AST 158 H ALT 50 H Alkaline Phosphatase 265 H Total Protein 6.5 Albumin 3.2 L Globulin 3.3 Urine Color Terese Urine Clarity Sl. Cloudy Urine pH 6.5 [address] [place] 1.010 Urine Protein 30 H Urine Glucose (UA) Normal Urine Ketones 15 H Urine Occult Blood 10 H Urine Nitrite Positive H Urine Bilirubin 6 H Urine Urobilinogen 12 H Ur Leukocyte Esterase 25 H Urine RBC 0 SEEN Urine WBC 0-5 SEEN Ur Squamous Epith Cells 0 SEEN Ur Transition Epith Cell 0 SEEN Urine Bacteria RARE Urine Mucus 0 SEEN Urine Opiates Screen NEGATIVE U Buprenorphine Qual NEGATIVE Ur Oxycodone Screen NEGATIVE Urine Methadone Screen NEGATIVE Urine Fentanyl Screen NEGATIVE Ur Barbiturates Screen NEGATIVE Ur Phencyclidine Scrn NEGATIVE Ur Amphetamines Screen NEGATIVE U Benzodiazepines Scrn NEGATIVE Urine Cocaine Screen NEGATIVE U Cannabinoids Screen NEGATIVE Radiography Diagnostic Testing: Clinical Impression(s) from Imaging Studies Abdomen/Pelvis CT 04/05/25 23:00 IMPRESSION: Mild wall thickening of the ascending and sigmoid colon could represent mild colitis. Similar findings of mild colonic wall thickening are noted on the previous study. Interval reduction in the size of the tiny subcutaneous abscess in the right inguinal region. Reading Location: [facility] Discharge Plan Triage Chief Complaint: General Illness ED Provider: Choujaa,Nidal Dx/Rx/DC Orders Clinical Impression: Acute alcoholic hepatitis, Jaundice, Hyponatremia, Hypochloremia, Hypokalemia, Direct hyperbilirubinemia, Transaminitis, Alcohol dependence Prescriptions: No Action albuterol sulfate [ProAir HFA] 1 PUFF inhaler 1 puff inhalation Q4H PRN PRN (Reason: Wheezing) amoxicillin-pot clavulanate 875-125 mg tablet 1 tab PO BID 7 Days Qty: 14 0RF ondansetron 4 mg tablet,disintegrating 4 mg PO Q8H PRN PRN (Reason: Nausea) Qty: 10 0RF Primary Care Provider: Care Physician,No Primary Referrals: Care Physician,No Primary [Primary Care Provider, Medical] Print Language: Montenegrin
[2025-04-06 00:20] LABS: Anion Gap 14 (5-15); BUN 13 mg/dL (4-19); BUN/Creat Ratio 14.5 RATIO (10-20); Calcium,Total 8.2 mg/dL (7.6-11.0); Carbon Dioxide 35.7 mmol/L (21.0-32.0); Chloride 80 mmol/L (98-108); Estimated Creatinine Clearance 113.38 ml/min (50-250); Glucose 103 mg/dL (70-99); Magnesium 2.0 mg/dL (1.5-2.2); Potassium 1.9 mmol/L (3.3-5.1)
[2025-04-06] MEDS: Magnesium Sulfate 2 GM in Dextrose 5%-Water (100mL Bag) 100 ML IV (00:45)
[2025-04-06] MEDS: Potassium Chloride Oral Soln 20 MEQ/15 ML UDC 40 MEQ PO (00:45)
--- NOTE | 2025-04-06 01:44 | HP.PCM.HOS_ITS ---
HPI - General General Date of Admission: 04/06/25 Date of Service: 04/06/25 Chief Complaint: Malaise/jaundice HPI Narrative ANNA STEPHEN, is a 44 M who presented to the emergency department at [facility] on 04/06/2025 with general malaise and jaundice. Patient states that over the last month he has had intermittent nausea and vomiting. He is a heavy drinker and owns a bar. He states he drinks about a liter to a liter and a half of alcohol on a regular basis. He states he does have withdrawal symptoms and is wondering whether or not his nausea vomiting may have been related to withdrawal because he would drink and feel better again. He also has had general malaise and has noted that he was started turning yellow about 3 to 4 days to prior to presentation. His intent was to come in on Tuesday as he was to work through the weekend however he was still feeling poorly enough today that he came in. Nausea and vomiting is intermittent. His bowels have been relatively normal. He states the vomiting is essentially dry heaving for the most part anymore. He has lost about 10 pounds in the last month. He denies fever or chills. He is denying chest pain or shortness of breath. He has had no sick contacts but he does report that he is clean of blood in his bar without gloves on so potential viral hepatitis exposure is there. He is never use IV drugs. He has tattoos but nothing new recently. He does travel out of the country fairly regularly most recently he was in [place] in [place]. Vital signs on presentation showed temperature 98.4, heart rate 100, respiratory was 14, blood pressure was 133/101 and pulse ox was 90% on room air. He has a significant leukocytosis on presentation with a white count of 17,000, a mild anemia and hemoglobin of 11.5. He does have a left shift. Coags showed a PT of 15.2 and INR of 1.2. Sodium was 129, potassium was 1.9, serum bicarb was 35.7, BUN was 13 with a creatinine of 0.92. He had a lactic acidosis at 2.3. Total bilirubin was 10.4 with a direct bilirubin of 7.43 and AST of 158 and an ALT of 50. UA is not consistent with infection. Toxicology screen is negative. Hepatitis studies are pending. CT abdomen pelvis was performed and showed some mild wall thickening in the ascending and sigmoid colon similar to previous study from 11/28/2024 and interval reduction of a tiny subcutaneous abscess in the right inguinal region. [facility] Medical History Dyshidrotic eczema Tobacco abuse Contact with and (suspected) exposure to other viral communicable diseases Home Medications Medication Instructions Recorded Last Taken Type albuterol sulfate 90 mcg/actuation 1 puff inhalation Q 4H PRN PRN 09/07/13 Unknown History aerosol inhaler (ProAir HFA) Wheezing amoxicillin 875 mg-potassium 1 tab PO BID 7 days #14 t abs 02/06/25 Unknown Rx clavulanate 125 mg tablet ondansetron 4 mg disintegrating 4 mg PO Q8H PRN PRN Na usea #10 tabs 02/06/25 Unknown Rx tablet Allergy/AdvReac Type Severity Reaction Status Date / Time No Known Allergies Allergy Verified 04/05/25 22:16 no significant family history no surgical history Social History (Updated 04/06/25 @ 03:[address] Jagruti Barrientos DO) household members: spouse housing: house current occupational status: employed current occupation: Owns a bar Smoking Status: Current every day smoker tobacco type: cigarettes alcohol intake: current alcohol intake frequency: 3 or more drinks per day Alcohol type: hard liquor substance use type: does not use ROS Constitutional Constitutional: Reports anorexia, change in weight, fatigue, malaise and weakness; Denies chills, fever(s), night sweats or other Eyes Eyes: Denies blurry vision, change in eye color, change in vision, discharge from eye(s), double vision, erythema, eye pain, loss of vision or other ENT HEENT: Denies abnormal hearing, dysphagia, ear pain, epistaxis, headache(s), hearing loss, nasal congestion, nasal discharge, post nasal drip, sinus pressure, sore throat or other Cardiovascular Cardiovascular: Denies chest pain, claudication, dyspnea on exertion, edema, lightheadedness, orthopnea, palpitations, paroxysmal nocturnal dyspnea, rapid heart rate, syncope or other Respiratory/Chest Respiratory/Chest: Denies cough, dyspnea, excessive phlegm production, hemoptysis, productive cough, shortness of breath at rest, shortness of breath with exertion, wheezing or other Gastrointestinal Gastrointestinal: Reports nausea and vomiting; Denies abdominal pain, coffee ground emesis, constipation, diarrhea, dyspepsia, hematemesis, hematochezia, loose stools, melena or other Genitourinary Genitourinary: Denies burning urination, difficulty urinating, dysuria, hematuria, nocturia, urinary frequency, urinary hesitancy, urinary incontinence, urinary urgency or other Neurologic Neurologic: Denies abnormal gait, abnormal speech, confusion, disequilibrium, dizziness, focal weakness, headache(s), numbness, paresthesias, seizure-like activity, seizures, syncope, tingling, tremor(s) or other Psychiatric Psychiatric: Denies anxiety, depression, homicidal ideation, suicidal ideation or other Endocrine Endocrinology: Denies change in body appearance, cold intolerance, excessive sweating, heat intolerance, polydipsia, polyuria or other Hematologic/Lymphatic Hematologic/Lymphatic: Denies anemia, easy bleeding, easy bruising, lymphadenopathy or other Allergic/Immunologic Allergic/Immunologic: Denies rhinitis, hives, eczemia, asthma or other Vital Signs Vital Signs Vital Signs: 04/05/25 22:15 04/05/25 23:18 04/06/25 00:00 Temperature 98.4 F Temperature Source Oral Pulse Rate 100 88 Respiratory Rate 14 16 Respiratory Pattern Normal Blood Pressure 133/101 H 125/77 H Blood Pressure Mean 111 93 Pulse Ox 98 98 Oxygen Delivery Method Room Air 04/06/25 00:39 Temperature 98.2 F Temperature Source Pulse Rate 88 Respiratory Rate 16 Respiratory Pattern Blood Pressure 125/77 H Blood Pressure Mean 93 Pulse Ox 98 Oxygen Delivery Method Weight Weight: 81.238 kg Body Mass Index (BMI) 23.6 Physical Exam Const alert, oriented x3, no apparent distress and average body habitus; Negative for healthy appearing or well nourished Constitutional Narrative: Middle-aged, white male, lying in bed, appears older than stated age, significant other at bedside, appears mildly ill but not toxic General Appearance: cooperative HEENT normocephalic, head/scalp atraumatic and hearing grossly normal bilaterally HEENT Narrative: Mucous membranes are slightly dry, Mallampati is 2, no thrush Eyes EOMs intact bilaterally; Negative for conjunctivae normal Eyes Narrative: Scleral icterus is present Neck supple Neck Narrative: Trachea midline Resp normal respiratory effort, no retractions, no use of accessory muscles and clear to auscultation bilaterally Resp Narrative: Diffusely diminished but clear Auscultation: Negative for rales, rhonchi or wheezes Cardio regular rate, regular rhythm, S1 normal heart sound, S2 normal heart sound, no murmurs, no rub, no gallops and no clicks GI normal to inspection, nondistended, normoactive bowel sounds, soft to palpation and non-tender GI Narrative: Significant hepatomegaly with lower border of the liver about 3-4 finger spaces below the ribs Extremity no clubbing, cyanosis or edema Extremity Narrative: Pedal and radial pulses are 2+ Skin Skin Narrative: Patient with significant jaundice, scattered tattoos Neuro oriented x3, moves all extremities and no focal motor deficits Speech: speech normal Psych Psych Narrative: Affect is slightly flat but appropriate for the given situation, patient interacts appropriately and makes good eye contact Results Lab / Micro Data 04/05/25 22:35 04/05/25 23:41 Labs: Laboratory Results - last 24 hr 04/05/25 22:35: WBC 17.0 H, RBC 3.49 L, Hgb 11.5 L, Hct 31.1 L, MCV 89.1, MCH 33.0 H, MCHC 37.0 H, RDW Std Deviation 46.0 H, RDW Coeff of Marco A 14.2, Plt Count 163, MPV 11.6, Immature Gran % (Auto) 0.800, Neut % (Auto) 86.2 H, Lymph % (Auto) 6.0 L, [place] % (Auto) 6.4, Eos % (Auto) 0.4, Baso % (Auto) 0.2, Absolute Neuts (auto) 14.6 H, Absolute Lymphs (auto) 1.01, Nucleated RBC % 0, PT 15.2 H, INR 1.2, Sodium 129 L, Potassium 1.8 L*, Chloride 79 L, Carbon Dioxide 36.0 H, Anion Gap 14, BUN 13, Creatinine 0.95, Estim Creat Clear Calc 109.80, Est GFR (MDRD) Non-Af 100, BUN/Creatinine Ratio 14.0, Glucose 104 H, Calcium 8.6, Total Bilirubin 10.40 H, Direct Bilirubin 7.43 H, AST 158 H, ALT 50 H, Alkaline Phosphatase 265 H, Total Protein 6.5, Albumin 3.2 L, Globulin 3.3 04/05/25 23:33: Lactic Acid 2.3 H*, Urine Color Terese, Urine Clarity Sl. Cloudy, Urine pH 6.5, Ur Specific [place] 1.010, Urine Protein 30 H, Urine Glucose (UA) Normal, Urine Ketones 15 H, Urine Occult Blood 10 H, Urine Nitrite Positive H, U rine Bilirubin 6 H, Urine Urobilinogen 12 H, Ur Leukocyte Esterase 25 H, Urine RBC 0 SEEN, Urine WBC 0-5 SEEN, Ur Squamous Epith Cells 0 SEEN, Ur Transition Epith Cell 0 SEEN, Urine Bacteria RARE, Urine Mucus 0 SEEN 04/05/25 23:41: Sodium 129 L, Potassium 1.9 L*, Chloride 80 L, Carbon Dioxide 35.7 H, Anion Gap 14, BUN 13, Creatinine 0.92, Estim Creat Clear Calc 113.38, Est GFR (MDRD) Non-Af 105, BUN/Creatinine Ratio 14.5, Glucose 103 H, Calcium 8.2, Magnesium 2.0 Imaging Radiology Impression Abdomen/Pelvis CT 04/05/25 23:00 IMPRESSION: Mild wall thickening of the ascending and sigmoid colon could represent mild colitis. Similar findings of mild colonic wall thickening are noted on the previous study. Interval reduction in the size of the tiny subcutaneous abscess in the right inguinal region. Reading Location: [facility] Assessment & Plan Assessment/Plan (1) Alcohol abuse: (2) Hypokalemia: (3) Leukocytosis: (4) Anemia: (5) Hyponatremia: (6) Lactic acidosis: (7) Inguinal abscess: (8) Acute hepatitis: PLAN: Plan Acute hepatitis with hyperbilirubinemia - Etiology is unclear - Viral studies are pending - Patient also with significant alcohol intake so could have component of alcoholic hepatitis--> Maddrey score is 11.8 - Transaminases are not elevated but bilirubin is markedly elevated - Check HIV status - with new anemia and hyperbilirubinemia will check for signs of hemolysis - Repeat lab in a.m. - If labs do not improve may need to consider GI consultation New anemia - Patient had erythrocytosis when he was here in November and now hemoglobin is down to 11.8 - Check haptoglobin - Check reticulocyte count - Check LDH Severe hypokalemia - Potassium on admission was 1.9 - Patient was given 40 mill equivalents IV and I have started him on p.o. potassium 40 mill equivalents p.o. twice daily for 2 days - magnesium level was within normal limits -Recheck lab in a.m. Leukocytosis - Patient with markedly elevated white count - Check procalcitonin - Will check blood cultures given presentation but hold off on antibiotics for now as I do not have a definitive source - Low threshold for initiation of antibiotics Lactic acidosis - Very mild and seems to be related dehydration - Trend per protocol Hyponatremia - Check urine and serum osmolality - Check urine sodium - check uric acid - check cortisol - check TSH - Repeat lab in a.m. - Highly suspect this is related to decreased solute as patient is not been taking in adequate p.o. Nausea and vomiting - Sounds like it is related to withdrawal as he does seem to get more intense nausea vomiting when he is not drinking and drinks to subside his symptoms - IV fluids as ordered - As needed antiemetics - Monitor clinically - Okay for p.o. diet at this time as patient is reporting hunger Alcohol abuse - Start phenobarbital taper - Start thiamine and folate - CIWA with as needed p.o. Ativan for breakthrough symptoms - Patient was inquiring about sobriety and may need 180 assistance Tobacco abuse - Recommend cessation - as needed albuterol Right inguinal abscess - Healing - Antibiotics as ordered for 10 days - Outpatient follow-up for resolution DVT prophylaxis - Subcu Lovenox 40 daily CODE STATUS Full code Charges/Coding Visit Charges Inpatient E&M: 48607 Init Hosp L3
--- NOTE | 2025-04-06 02:03 | ED.RN ---
Pt declines changing into hospital gown at this time
[2025-04-06 02:21] LABS: Barbiturate Urine NEGATIVE (< 200 ng/mL); Benzodiazepine Urine NEGATIVE (< 200 ng/mL); PCP Urine NEGATIVE (< 25 ng/mL); THC Urine NEGATIVE (< 50 ng/mL)
[2025-04-06 03:39] LABS: Reflex Lactate? Y
[2025-04-06 04:34] LABS: Osmolality, Serum 276 mOsm/KG (275-295)
[2025-04-06 04:42] LABS: Alcohol, Blood (Medical)-Serum < 10.1 mg/dL (<=10.0)
[2025-04-06] MEDS: 0.9% Normal Saline (1000mL) 1,000 ML 100 ML IV (04:47)
[2025-04-06] MEDS: Nicotine (PBKC) 21 MG Patch TD (04:49)
[2025-04-06 04:52] LABS: HIV Nonreactive (Nonreactive); Magnesium 2.5 mg/dL (1.5-2.2)
[2025-04-06 06:08] LABS: Hematocrit 28.3 % (40-54); Hemoglobin 10.3 g/dL (13.0-16.5); Immature Granulocytes Count 0.140 X10^3/uL (0.0-0.0); Immature Platelet Fraction 6.1 % (1.0-7.9); Immature Reticulocyte Fraction 11.50 % (3.00-15.90); Mean Corp Hgb Conc 36.4 g/dL (32-36); Mean Corpuscular Volume 89.6 fL (80-94); Mean Platelet Vol. 10.9 fl (6.2-12.0); NRBC Flagged by Analyzer 0 % (0-5); Platelet Count 141 K/mm3 (150-450); RBC Distribution Width CV 14.0 % (11.6-14.6); RBC Distribution Width SD 45.6 fl (35.1-43.9); Red Blood Count 3.16 M/mm3 (4.6-6.2); Reticulocyte Count 2.89 % (0.5-1.5); White Blood Count 12.5 K/mm3 (4.4-11.0)
--- NOTE | 2025-04-06 06:27 | PCM.HOSP.N ---
Hospitalist Note Platelet count is down today which is new from admission. LDH is pending. Haptoglobin is pending. Will check Epi test. Bella smear ordered. Given new findings of thrombocytopenia and along with him having proteinuria and microscopic hematuria there would be concern for TTP. If LDH is up I would be concerned that this is potentially related to hemolytic anemia and if the Epi test is negative this could be TTP. This would require consultation to hematology oncology and likely transfer to tertiary center all labs are still pending. If pattern is consistent with this ADAMTS 13 should be assessed.
[2025-04-06 06:32] LABS: Uric Acid 8.6 mg/dL (3.5-7.2)
[2025-04-06 06:34] LABS: CORTISOL AM 21.80 ug/dL (6.02-18.40); LDH 347 U/L (87-241); Magnesium 2.5 mg/dL (1.5-2.2); Procalcitonin 6.09 ng/mL (<=0.10)
[2025-04-06 06:39] LABS: AST(SGOT) 160 U/L (<=37); Alanine Aminotransfer ALT/SGPT 45 U/L (<=46); Albumin, Serum 2.9 g/dL (3.5-5.0); Alkaline Phosphatase 249 U/L (40-129); Anion Gap 13 (5-15); BUN 11 mg/dL (4-19); BUN/Creat Ratio 15.1 RATIO (10-20); Calcium,Total 7.8 mg/dL (7.6-11.0); Carbon Dioxide 32.6 mmol/L (21.0-32.0); Chloride 85 mmol/L (98-108); Estimated Creatinine Clearance 139.09 ml/min (50-250); Globulin 3.0 g/dL (2.2-4.2); Glucose 120 mg/dL (70-99); Potassium 2.2 mmol/L (3.3-5.1)
[2025-04-06 07:15] LABS: Differential Indicated SCAN CRITERIA MET
[2025-04-06] MEDS: Vancomycin HCl 1,250 MG in 0.9% Normal Saline (250mL Bag) 250 ML 167 MG IV (07:29)
[2025-04-06 07:30] LABS: Osmolality, Urine 572 mOsm/KG
--- NOTE | 2025-04-06 08:07 | PCM.RX.CS ---
Consult Antibiotic Management Pharmacy has been consulted to manage selected antibiotic: Vancomycin Type of Intervention Type of Consult: New start Suspected Infection Suspected Infection: Other Labs Labs: Sodium 130 mmol/L (133-145) L 04/06/25 05:45 Potassium 2.2 mmol/L (3.3-5.1) L* 04/06/25 05:45 Chloride 85 mmol/L (98-108) L 04/06/25 05:45 Carbon Dioxide 32.6 mmol/L (21.0-32.0) H 04/06/25 05:45 Anion Gap 13 (5-15) 04/06/25 05:45 BUN 11 mg/dL (4-19) 04/06/25 05:45 Creatinine 0.75 mg/dL (0.70-1.20) 04/06/25 05:45 Est GFR (MDRD) Non-Af 113 (>60) 04/06/25 05:45 BUN/Creatinine Ratio 15.1 RATIO (10-20) 04/06/25 05:45 Glucose 120 mg/dL (70-99) H 04/06/25 05:45 Goal Trough Goal Trough: 15-20 mcg/mL Pharmacy Plan for Drug Dosing Pharmacy Plan for Drug Dosing: NEW START IV VANCOMYCIN Consulting Physician: Dr. Fransisco Barrientos Indication: R/O infectious process Goal Trough: 15-20 SrCr: 0.75 CrCl: 139 mL/min Comments: patient had initial dose of 1250mg IV x1 04/06/25 @0729 Vancomycin Dose: 1000mg IV Q8h to start 04/06/25 @1500 Pending Level: 04/07/25 @0630, prior to 4th total vancomycin dose per protocol Pharmacy Service will continue to monitor and adjust dosing as required.
--- NOTE | 2025-04-06 08:43 | CASEMGMT ---
Dx: Acute hepatitis with hyperbilirubinemia LACE: 1 6-Clicks: 24 Medical record reviewed and patient evaluated for identification of discharge planning needs. Based on this review, at this time criteria are not present to indicate a need for discharge planning. Will remain available to assist with discharge planning needs as identified or requested.
[2025-04-06 09:15] LABS: Differential Comment SCANNED
[2025-04-06 09:25] LABS: Bilirubin, Direct 6.80 mg/dL (0.00-0.30)
[2025-04-06] MEDS: Piperacil/Tazobactam 3.375 GM in 0.9% Normal Saline (50mL MB+) 50 ML IV ×3 (09:29→20:37)
[2025-04-06] MEDS: Potassium Phosphate 45 MM in 0.9% Normal Saline (500mL Bag) 500 ML 85 MM IV (09:41)
[2025-04-06] MEDS: Potassium Chloride Oral Tablet 20 MEQ 40 MEQ PO ×2 (09:47→16:59)
[2025-04-06] MEDS: Thiamine Hydrochloride 100 MG Tablet PO (09:47)
--- NOTE | 2025-04-06 09:47 | CASEMGMT ---
Social Work SW spoke with the patient. Patient reported he has filed for Medicaid but it is not approved yet. SW provided the patient with resources for prescription and medical assistance. Patient does not want resources for substance or mental health counseling. [place]
--- NOTE | 2025-04-06 12:33 | CON.PCM.GI_ITS ---
HPI Consult Data Date of Consult: 04/06/25 HPI Narrative Reason for Consultation: Acute hepatitis HPI Narrative: ANNA STEPHEN, is a 44-year-old male who presented to the Emergency Department at [facility] on 04/06/2025 with general malaise and jaundice. His chief complaint is general malaise and jaundice. His symptoms of general malaise began about a month ago, with intermittent nausea and vomiting. Noticed jaundice starting approximately 3-4 days prior to presentation. * Character: Jaundice. * Associated Symptoms: Intermittent nausea and vomiting over the last month. 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 * Heavy daily alcohol consumption (1-1.5L). * Denies IV drug use. * Has tattoos, none recent. * Regular international traveler, most recently to [place] and [facility]. * He complains of: * General: General malaise. * Gastrointestinal: Intermittent nausea and vomiting for the past month, jaundice. * Pertinent negatives noted in workup: Toxicology screen negative, UA not consistent with infection.] [facility] Medical History Dyshidrotic eczema Tobacco abuse Contact with and (suspected) exposure to other viral communicable diseases Home Medications Medication Instructions Recorded Last Taken Type albuterol sulfate 90 mcg/actuation 1 puff inhalation Q 4H PRN PRN 09/07/13 Unknown History aerosol inhaler (ProAir HFA) Wheezing Allergy/AdvReac Type Severity Reaction Status Date / Time No Known Allergies Allergy Verified 04/05/25 22:16 Family History no significant family his Surgical History no surgical history Social History household members: spouse housing: house current occupational status: employed current occupation: Owns a bar Smoking Status: Current every day smoker tobacco type: cigarettes alcohol intake: current alcohol intake frequency: 3 or more drinks per day Alcohol type: hard liquor substance use type: does not use ROS Constitutional Constitutional: Reports fatigue, fever(s), poor appetite and weight loss; Denies weight gain Gastrointestinal Gastrointestinal: Reports bloating and early satiety; Denies belching, change in bowel habits, change in stool character, chewing difficulty, coffee ground emesis, constipation, cramping, diarrhea, dyspepsia, dysphagia, excessive flatus, fecal incontinence, heartburn, hematemesis, hematochezia, hemorrhoids, loose stools, melena, nausea, odynophagia, rectal bleeding, tenesmus, vomiting or weight changes Physical Exam Narrative Jaundice Const alert, oriented x3, no apparent distress and healthy appearing General Appearance: cooperative Eyes Sclera: sclera abnormal GI normal to inspection, nondistended, normoactive bowel sounds, soft to palpation, non-tender and non-distended Percussion: normal to percussion Rectal Exam: deferred Lab / Micro Data 04/06/25 05:45 04/06/25 05:45 Labs: Laboratory Results - last 24 hr 04/05/25 22:35: WBC 17.0 H, RBC 3.49 L, Hgb 11.5 L, Hct 31.1 L, MCV 89.1, MCH 33.0 H, MCHC 37.0 H, RDW Std Deviation 46.0 H, RDW Coeff of Marco A 14.2, Plt Count 163, MPV 11.6, Immature Gran % (Auto) 0.800, Neut % (Auto) 86.2 H, Lymph % (Auto) 6.0 L, [place] % (Auto) 6.4, Eos % (Auto) 0.4, Baso % (Auto) 0.2, Absolute Neuts (auto) 14.6 H, Absolute Lymphs (auto) 1.01, Nucleated RBC % 0, PT 15.2 H, INR 1.2, Sodium 129 L, Potassium 1.8 L*, Chloride 79 L, Carbon Dioxide 36.0 H, Anion Gap 14, BUN 13, Creatinine 0.95, Estim Creat Clear Calc 109.80, Est GFR (MDRD) Non-Af 100, BUN/Creatinine Ratio 14.0, Glucose 104 H, Calcium 8.6, Total Bilirubin 10.40 H, Direct Bilirubin 7.43 H, AST 158 H, ALT 50 H, Alkaline Phosphatase 265 H, Total Protein 6.5, Albumin 3.2 L, Globulin 3.3 04/05/25 23:33: Lactic Acid 2.3 H*, Urine Color Terese, Urine Clarity Sl. Cloudy, Urine pH 6.5, Ur Specific [place] 1.010, Urine Protein 30 H, Urine Glucose (UA) Normal, Urine Ketones 15 H, Urine Occult Blood 10 H, Urine Nitrite Positive H, U rine Bilirubin 6 H, Urine Urobilinogen 12 H, Ur Leukocyte Esterase 25 H, Urine RBC 0 SEEN, Urine WBC 0-5 SEEN, Ur Squamous Epith Cells 0 SEEN, Ur Transition Epith Cell 0 SEEN, Urine Bacteria RARE, Urine Mucus 0 SEEN, Urine Opiates Screen NEGATIVE, U Buprenorphine Qual NEGATIVE, Ur Oxycodone Screen NEGATIVE, Urine Methadone Screen NEGATIVE, Urine Fentanyl Screen NEGATIVE, Ur Barbiturates Screen NEGATIVE, Ur Phencyclidine Scrn NEGATIVE, Ur Amphetamines Screen NEGATIVE, U Benzodiazepines Scrn NEGATIVE, Urine Cocaine Screen NEGATIVE, U Cannabinoids Screen NEGATIVE 04/05/25 23:41: Sodium 129 L, Potassium 1.9 L*, Chloride 80 L, Carbon Dioxide 35.7 H, Anion Gap 14, BUN 13, Creatinine 0.92, Estim Creat Clear Calc 113.38, Est GFR (MDRD) Non-Af 105, BUN/Creatinine Ratio 14.5, Glucose 103 H, Calcium 8.2, Magnesium 2.0 04/06/25 03:56: Serum Osmolality 276, Uric Acid 8.6 H, Phosphorus 1.5 L, M agnesium 2.5 H, Ethyl Alcohol < 10.1, HIV 1&2 Antibody Nonreactive 04/06/25 04:23: Lactic Acid 2.6 H* 04/06/25 04:55: Urine Osmolality 572, Ur Random Sodium 72 04/06/25 05:45: WBC 12.5 H, RBC 3.16 L, Hgb 10.3 L, Hct 28.3 L, MCV 89.6, MCH 32.6 H, MCHC 36.4 H, RDW Std Deviation 45.6 H, RDW Coeff of Marco A 14.0, Plt Count 141 L, MPV 10.9, Immature Gran % (Auto) 1.100 H, Neut % (Auto) 86.1 H, Lymph % (Auto) 6.2 L, Bradley % (Auto) 5.9, Eos % (Auto) 0.4, Baso % (Auto) 0.3, Absolute Neuts (auto) 10.7 H, Absolute Lymphs (auto) 0.77 L, Nucleated RBC % 0, Differential Comment SCANNED, Diff Path Review May foll, Immature Plt Fraction 6.1, Stomatocytes RARE, Retic Count 2.89 H, Immature Retic Fraction 11.50, Retic Hgb Equivalent 33.4, Sodium 130 L, Potassium 2.2 L*, Chloride 85 L, Carbon Dioxide 32.6 H, Anion Gap 13, BUN 11, Creatinine 0.75, Estim Creat Clear Calc 139.09, Est GFR (MDRD) Non-Af 113, BUN/Creatinine Ratio 15.1, Glucose 120 H, Calcium 7.8, Phosphorus 1.5 L, Magnesium 2.5 H, Total Bilirubin 9.20 H, Direct Bilirubin 6.80 H, AST 160 H, ALT 45, Alkaline Phosphatase 249 H, Lactate Dehydrogenase 347 H, Total Protein 5.8 L, Albumin 2.9 L, Globulin 3.0, Albumin/Globulin Ratio 1.0, Procalcitonin 6.09 H, TSH 0.855, Cortisol AM Sample 21.80 H, Direct Antiglob Test NEG w/POLYSPECIFIC Imaging Radiology Impression Abdomen/Pelvis CT 04/05/25 23:00 IMPRESSION: Mild wall thickening of the ascending and sigmoid colon could represent mild colitis. Similar findings of mild colonic wall thickening are noted on the previous study. Interval reduction in the size of the tiny subcutaneous abscess in the right inguinal region. Reading Location: [id number] Assessment & Plan Assessment/Plan (1) Acute hepatitis: (2) Alcohol dependence: (3) Transaminitis: (4) Direct hyperbilirubinemia: (5) Acute alcoholic hepatitis: (6) Hyponatremia: (7) Hypochloremia: (8) Hypokalemia: (9) Jaundice: PLAN: The patient presents with signs and symptoms consistent with acute alcoholic hepatitis. The elevated white blood cell count with a left shift warrants a thorough workup for infection (e.g., blood cultures, chest X-ray, ascitic fluid tap if ascites is present), which is a goldstein contraindication for steroids. He does not have ascites at this time. The elevated bilirubin and INR suggest significant liver dysfunction. To assess these: * Gin Discriminant Function (MDF): Requires a control PT value to calculate. Assuming a common control PT of 11 seconds: MDF = 4.6 * (Patient PT - Control PT) + Total Bilirubin MDF = 4.6 * (15.2 - 11) + 10.4 MDF = 4.6 * 4.2 + 10.4 MDF = 19.32 + 10.4 MDF = 29.72 * MELD Score: Requires INR, creatinine, and total bilirubin. MELD score can be calculated, and a score over 21 also indicates severe disease. If the MDF is >= 32 is greater than or equal to 32 or MELD score is >= 21 is greater than or equal to 21, the patient would be considered for steroid treatment, provided no contraindications exist. Based on the assumed control PT, the MDF is 29.72, which is slightly below the threshold for severe disease. However, the patient's clinical presentation (marked jaundice, malaise, lab values) is significant. Given the MELD score is often a better predictor of 30-day survival, this should also be calculated. Creatinine = 0.75 Bilirubin = 10 INR = 1.2 Sodium = 128 MELD = 22 A MELD score of 22 points carries a estimated 19.63% 3-month mortality. Plan * Supportive Care: Continue supportive care, including nutritional support and management of alcohol withdrawal (likely needs inpatient medical detox). * Infection Workup: Complete a full workup for infection (cultures are essential given the elevated WBC and left shift). * Severity Assessment: Calculate the formal MELD score and potentially the [facility] Alcoholic Hepatitis Score (GAHS) to further determine disease severity. Age 44 White blood cell count = 12 BUN = 10 Bilirubin = 10 PT = 13 PT lab normal = 11-13 GAHS = 7 points [facility] alcoholic hepatitis score of less than 9 portend a much better 28 to 84-day mortality survival then scores above 9 can indicate a or survival rate. * Steroid Decision: The decision to use steroids depends on the severity scores (if MDF >=32is greater than or equal to 32 or MELD >=21is greater than or equal to 21) and confirmation of no active infection or other contraindications (e.g., renal failure, GI bleeding). * If steroids are initiated (e.g., prednisolone 40 mg daily for 28 days), the patient should be monitored closely, and the Lille score should be calculated at day 7 to assess response. * If contraindications exist or the patient is a non-responder to steroids, alternative therapies like pentoxifylline could be considered, though evidence is conflicting. * I do not see any indication for steroids at this time * Abstinence: Emphasize the importance of long-term alcohol abstinence for survival and refer to an alcohol treatment program. * Monitoring: Monitor liver function, electrolytes (especially K, Na), renal function, and signs of infection closely. Replete potassium immediately. Charges/Coding Visit Charges Inpatient E&M: 21274 Init Hosp L3
[2025-04-06 14:20] LABS: Prothrombin Time (Protime)PT. 15.9 SECONDS (11.7-14.9)
--- NOTE | 2025-04-06 14:41 | PN_ITS ---
Subjective Subjective Patient seen and examined with his nurse by his bedside. He had no active complaints though he did admit to some weakness and lethargy. He admits to the yellowing of his eyes namely the jaundice which has been going on for few weeks. He denied any abdominal pain, nausea or vomiting, fever or chills. Review of systems is othewise negative. Objective Data Objective Data Vital Signs: Vital Signs Temp Pulse Resp BP Pulse Ox O2 Del Method 97.9 F 78 16 113/62 96 Room Air 04/06/25 13:17 04/06/25 13:17 04/06/25 13:17 04/06/25 13:17 04/06/25 13:17 04/06/25 13:17 Oxygen Delivery Method Room Air Weight: 177 lb 4.026 oz Body Mass Index (BMI) 23.3 Intake & Output: Intake and Output for Last 24 Hours 04/04/25 04/05/25 04/06/25 23:59 23:59 23:59 Intake Total 1949 / 1949 Output Total 150 / 150 Balance 1799 / 1799 Lab / Micro Data 04/06/25 05:45 04/06/25 05:45 Labs: Laboratory Results - last 24 hr 04/05/25 22:35: WBC 17.0 H, RBC 3.49 L, Hgb 11.5 L, Hct 31.1 L, MCV 89.1, MCH 33.0 H, MCHC 37.0 H, RDW Std Deviation 46.0 H, RDW Coeff of Marco A 14.2, Plt Count 163, MPV 11.6, Immature Gran % (Auto) 0.800, Neut % (Auto) 86.2 H, Lymph % (Auto) 6.0 L, [place] % (Auto) 6.4, Eos % (Auto) 0.4, Baso % (Auto) 0.2, Absolute Neuts (auto) 14.6 H, Absolute Lymphs (auto) 1.01, Nucleated RBC % 0, PT 15.2 H, INR 1.2, Sodium 129 L, Potassium 1.8 L*, Chloride 79 L, Carbon Dioxide 36.0 H, Anion Gap 14, BUN 13, Creatinine 0.95, Estim Creat Clear Calc 109.80, Est GFR (MDRD) Non-Af 100, BUN/Creatinine Ratio 14.0, Glucose 104 H, Calcium 8.6, Total Bilirubin 10.40 H, Direct Bilirubin 7.43 H, AST 158 H, ALT 50 H, Alkaline Phosphatase 265 H, Total Protein 6.5, Albumin 3.2 L, Globulin 3.3 04/05/25 23:33: Lactic Acid 2.3 H*, Urine Color Terese, Urine Clarity Sl. Cloudy, Urine pH 6.5, Ur Specific [place] 1.010, Urine Protein 30 H, Urine Glucose (UA) Normal, Urine Ketones 15 H, Urine Occult Blood 10 H, Urine Nitrite Positive H, U rine Bilirubin 6 H, Urine Urobilinogen 12 H, Ur Leukocyte Esterase 25 H, Urine RBC 0 SEEN, Urine WBC 0-5 SEEN, Ur Squamous Epith Cells 0 SEEN, Ur Transition Epith Cell 0 SEEN, Urine Bacteria RARE, Urine Mucus 0 SEEN, Urine Opiates Screen NEGATIVE, U Buprenorphine Qual NEGATIVE, Ur Oxycodone Screen NEGATIVE, Urine Methadone Screen NEGATIVE, Urine Fentanyl Screen NEGATIVE, Ur Barbiturates Screen NEGATIVE, Ur Phencyclidine Scrn NEGATIVE, Ur Amphetamines Screen NEGATIVE, U Benzodiazepines Scrn NEGATIVE, Urine Cocaine Screen NEGATIVE, U Cannabinoids Screen NEGATIVE 04/05/25 23:41: Sodium 129 L, Potassium 1.9 L*, Chloride 80 L, Carbon Dioxide 35.7 H, Anion Gap 14, BUN 13, Creatinine 0.92, Estim Creat Clear Calc 113.38, Est GFR (MDRD) Non-Af 105, BUN/Creatinine Ratio 14.5, Glucose 103 H, Calcium 8.2, Magnesium 2.0 04/06/25 03:56: Serum Osmolality 276, Uric Acid 8.6 H, Phosphorus 1.5 L, M agnesium 2.5 H, Ethyl Alcohol < 10.1, HIV 1&2 Antibody Nonreactive 04/06/25 04:23: Lactic Acid 2.6 H* 04/06/25 04:55: Urine Osmolality 572, Ur Random Sodium 72 04/06/25 05:45: WBC 12.5 H, RBC 3.16 L, Hgb 10.3 L, Hct 28.3 L, MCV 89.6, MCH 32.6 H, MCHC 36.4 H, RDW Std Deviation 45.6 H, RDW Coeff of Marco A 14.0, Plt Count 141 L, MPV 10.9, Immature Gran % (Auto) 1.100 H, Neut % (Auto) 86.1 H, Lymph % (Auto) 6.2 L, [place] % (Auto) 5.9, Eos % (Auto) 0.4, Baso % (Auto) 0.3, Absolute Neuts (auto) 10.7 H, Absolute Lymphs (auto) 0.77 L, Nucleated RBC % 0, Differential Comment SCANNED, Diff Path Review September, Immature Plt Fraction 6.1, Stomatocytes RARE, Retic Count 2.89 H, Immature Retic Fraction 11.50, Retic Hgb Equivalent 33.4, Sodium 130 L, Potassium 2.2 L*, Chloride 85 L, Carbon Dioxide 32.6 H, Anion Gap 13, BUN 11, Creatinine 0.75, Estim Creat Clear Calc 139.09, Est GFR (MDRD) Non-Af 113, BUN/Creatinine Ratio 15.1, Glucose 120 H, Calcium 7.8, Phosphorus 1.5 L, Magnesium 2.5 H, Total Bilirubin 9.20 H, Direct Bilirubin 6.80 H, AST 160 H, ALT 45, Alkaline Phosphatase 249 H, Lactate Dehydrogenase 347 H, Total Protein 5.8 L, Albumin 2.9 L, Globulin 3.0, Albumin/Globulin Ratio 1.0, Procalcitonin 6.09 H, TSH 0.855, Cortisol AM Sample 21.80 H, Direct Antiglob Test NEG w/POLYSPECIFIC 04/06/25 13:58: PT 15.9 H, INR 1.2 Radiography Diagnostic Testing: Radiology Impression Abdomen/Pelvis CT 04/05/25 23:00 IMPRESSION: Mild wall thickening of the ascending and sigmoid colon could represent mild colitis. Similar findings of mild colonic wall thickening are noted on the previous study. Interval reduction in the size of the tiny subcutaneous abscess in the right inguinal region. Reading Location: [facility] Physical Exam Const alert and oriented x3 General Appearance: cooperative HEENT normocephalic, head/scalp atraumatic and moist oral mucous membranes HEENT Narrative: patient deeply jaundiced Eyes EOMs intact bilaterally Neck supple and no JVD Lymph Lymphatic: no lymphedema noted Resp normal respiratory effort, normal air movement and clear to auscultation bilaterally Cardio regular rate, regular rhythm, S1 normal heart sound, S2 normal heart sound and no murmurs GI normal to inspection, nondistended, normoactive bowel sounds and soft to palpation GI Narrative: palpable nontender hepatomegaly, no palpable splenomegaly Extremity normal capillary refill, no clubbing, cyanosis or edema and no calf tenderness General Extremity: no tenderness to palpation of joints or extremities Skin Skin Narrative: skin deeply jaundiced General Skin Exam: no breakdown Neuro no focal motor deficits and no sensory deficits noted Motor Exam: strength 5/5 throughout Psych thought process normal, cooperative and affect normal Appearance: appropriate Assessment & Plan Assessment/Plan (1) Acute hepatitis: (2) Alcohol dependence: PLAN: Plan #Acute hepatitis, likely alcoholic hepatitis * Patient admitted with a complaint of jaundice and generalized malaise. He has a history of significant chronic alcohol intake. He drinks about a liter and a half of rum daily. * Total bilirubin was elevated at 10.4 and is down to 9.2 today. It was mainly a direct hyperbilirubinemia. * LDH was checked and was elevated at 347. Haptoglobin is pending. Urinalysis did show microhematuria but this has been present since November 2024. * On admission there was concern about possible TTP in light of the elevated bilirubin and concern for hemolysis in light of the microhematuria. However the patient's clinical picture does not fit this. He has a history of chronic alcohol use. His platelets are 141 which was lower is not critically low as in TTP levels. Platelets were 163 on admission on 04/05/2025. Additionally he does have a clear picture of chronic alcohol abuse and so alcoholic hepatitis fits the picture better. The hyperbilirubinemia is also more of a direct bilirubinemia and not an indirect bilirubinemia which would be what you would see if it was mainly due to hemolysis. I also spoke to the lab who reviewed the peripheral smear and there were no schistocytes present. * Gastroenterology therefore consulted as some concern this is likely due to acute alcoholic hepatitis. HIV and hepatitis serology pending. * Gastroenterology reviewed patient and per GI, the moderate discriminant function score is 29.72. The MELD score is also elevated at 22. INR was 1.2. * AST is 160. The AST ALT ratio is more than 2 is to 1 which lends further credence to the fact that this is likely alcoholic hepatitis. ALP is also mildly elevated at 249. * Will defer management and whether steroid should be initiated to gastroenterology. * Patient started on IV vancomycin and Zosyn on account of elevated procalcitonin. Blood cultures and urine cultures pending. * * #Anemia: Hemoglobin is around 10 today. LDH was elevated but haptoglobin is pending and reticulocyte also pending. Will monitor closely. #Hypokalemia: Replace aggressively and monitor. #Leukocytosis: WBC was 17 on admission and is now down to 12. Procalcitonin was elevated. Blood cultures pending and patient started on broad-spectrum antibiotics. #Hyponatremia: This is likely related to the alcoholic hepatitis. Continue gentle hydration with IV fluids #Alcohol use disorder * Patient at risk for withdrawal. 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 On thiamine and folic acid. On phenobarb taper and CIWA protocol. # Nicotine dependence: Counseled to quit. Nicotine patch as needed DVT prophylaxis: SCDs. Will DC Lovenox and continue on SCDs for now. Code status: full code Charges/Coding Visit Charges Inpatient E&M: 76703 Subs Hosp L3
[2025-04-06] MEDS: Vancomycin HCl 1,000 MG in 0.9% Normal Saline (250mL Bag) 250 ML 250 MG IV ×2 (16:21→22:54)
[2025-04-06] MEDS: 0.9% Saline Lock 10 ML Syringe IV ×2 (20:37→22:54)
[2025-04-07] VITALS (7 sets, daily range): BP systolic 103–122; BP diastolic 62–80; PULSE 87–105; RESP 16–18; TEMP 36.7–37.7; O2SAT 95–98
[2025-04-07 01:28] LABS: Prothrombin Time (Protime)PT. 15.4 SECONDS (11.7-14.9)
[2025-04-07] MEDS: 0.9% Saline Lock 10 ML Syringe IV (05:04)
[2025-04-07] MEDS: Piperacil/Tazobactam 3.375 GM in 0.9% Normal Saline (50mL MB+) 50 ML IV ×3 (05:05→21:57)
[2025-04-07 06:55] LABS: Hematocrit 26.9 % (40-54); Hemoglobin 9.7 g/dL (13.0-16.5); Immature Granulocytes Count 0.160 X10^3/uL (0.0-0.0); Mean Corp Hgb Conc 36.1 g/dL (32-36); Mean Corpuscular Volume 90.9 fL (80-94); Mean Platelet Vol. 10.9 fl (6.2-12.0); NRBC Flagged by Analyzer 0.3 % (0-5); Platelet Count 120 K/mm3 (150-450); RBC Distribution Width CV 14.6 % (11.6-14.6); RBC Distribution Width SD 48.5 fl (35.1-43.9); Red Blood Count 2.96 M/mm3 (4.6-6.2); White Blood Count 10.3 K/mm3 (4.4-11.0)
[2025-04-07 07:22] LABS: Vancomycin, Trough Level 13.4 ug/mL (5.0-15.0)
[2025-04-07 07:23] LABS: AST(SGOT) 216 U/L (<=37); Alanine Aminotransfer ALT/SGPT 51 U/L (<=46); Albumin, Serum 2.6 g/dL (3.5-5.0); Alkaline Phosphatase 319 U/L (40-129); Anion Gap 12 (5-15); BUN 11 mg/dL (4-19); BUN/Creat Ratio 12.9 RATIO (10-20); Calcium,Total 7.3 mg/dL (7.6-11.0); Carbon Dioxide 29.4 mmol/L (21.0-32.0); Chloride 92 mmol/L (98-108); Estimated Creatinine Clearance 119.19 ml/min (50-250); Globulin 2.7 g/dL (2.2-4.2); Glucose 104 mg/dL (70-99); Potassium 2.3 mmol/L (3.3-5.1)
--- NOTE | 2025-04-07 07:39 | PHA.PHARE_ITS ---
Consult Antibiotic Management Pharmacy has been consulted to manage selected antibiotic: Vancomycin Type of Intervention Type of Consult: Follow-up Labs Labs: Sodium 132 mmol/L (133-145) L 04/07/25 06:32 Potassium 2.3 mmol/L (3.3-5.1) L* 04/07/25 06:32 Chloride 92 mmol/L (98-108) L 04/07/25 06:32 Carbon Dioxide 29.4 mmol/L (21.0-32.0) 04/07/25 06:32 Anion Gap 12 (5-15) 04/07/25 06:32 BUN 11 mg/dL (4-19) 04/07/25 06:32 Creatinine 0.85 mg/dL (0.70-1.20) 04/07/25 06:32 Est GFR (MDRD) Non-Af 109 (>60) 04/07/25 06:32 BUN/Creatinine Ratio 12.9 RATIO (10-20) 04/07/25 06:32 Glucose 104 mg/dL (70-99) H 04/07/25 06:32 Vancomycin Trough 13.4 ug/mL (5.0-15.0) 04/07/25 06:32 Goal Trough Goal Trough: 15-20 mcg/mL Pharmacy Plan for Drug Dosing Pharmacy Plan for Drug Dosing: VANCOMYCIN LEVEL RECEIVED Current Vancomycin Dose: 1000mg IV Q8h Number of Doses Received: 3 (initial dose +2 scheduled) Vancomycin Level: 13.4 (goal 15-20) Hours Since Last Dose: 7.5hr Renal Function: SCr 0385/ CrCl 119 mL/min Renal Function Trend: stable Lab/Micro: ngtd Vancomycin Plan/Comments: Patient had a trough drawn which resulted din a value of 13.4 (goal 15-20). The patient's trough came back slightly below goal trough. However; patient's WBC count has trended down, cultures are negative thus far, and pt is afebrile. In light of this, am hesitant to adjust dose at this time s damon he is close to the goal trough range. Will continue vancomycin 1000mg IV Q8h at this time and recheck a trough in 24hrs. If it is still subtherapeutic at that time, would consider adjusting dose. Pending Level: 04/08/25 @0630 Pharmacy Service will continue to monitor and adjust dosing as required.
[2025-04-07] MEDS: Nicotine (PBKC) 21 MG Patch TD (07:55)
[2025-04-07] MEDS: Thiamine Hydrochloride 100 MG Tablet PO (07:55)
[2025-04-07] MEDS: Potassium Chloride Oral Tablet 20 MEQ 40 MEQ PO ×2 (07:55→17:04)
[2025-04-07 07:59] LABS: Magnesium 2.0 mg/dL (1.5-2.2)
[2025-04-07] MEDS: Vancomycin HCl 1,000 MG in 0.9% Normal Saline (250mL Bag) 250 ML 250 MG IV ×3 (08:07→23:17)
[2025-04-07 08:08] LABS: HEPATITIS B SURFACE AG Negative (Negative); Hep C Antibodies Non Reactive (Non Reactive)
[2025-04-07] MEDS: Potassium Chloride 10mEq/100mL 10 MEQ/100 ML IV.SOLN. 100 MEQ IV BOLUS ×8 (08:13→20:22)
[2025-04-07 08:49] LABS: Prothrombin Time (Protime)PT. 15.4 SECONDS (11.7-14.9)
--- NOTE | 2025-04-07 11:09 | PN_ITS ---
Subjective Subjective Patient seen and examined with his nurse by his bedside.. He was comfortably eating breakfast. He had no active complaints. He remains jaundiced. Review of systems otherwise negative. He has remained hemodynamically stable. Objective Data Objective Data Vital Signs: Vital Signs Temp Pulse Resp BP Pulse Ox O2 Del Method 99.9 F H 102 H 16 103/64 95 Room Air 04/07/25 07:46 04/07/25 07:46 04/07/25 07:46 04/07/25 07:46 04/07/25 07:46 04/07/25 07:46 Oxygen Delivery Method Room Air Weight: 177 lb 4.026 oz Body Mass Index (BMI) 23.3 Intake & Output: Intake and Output for Last 24 Hours 04/05/25 04/06/25 04/07/25 23:59 23:59 23:59 Intake Total 5154 / 5154 520 / 520 Output Total 150 / 150 Balance 5004 / 5004 520 / 520 Lab / Micro Data 04/07/25 06:32 04/07/25 06:32 Labs: Laboratory Results - last 24 hr 04/05/25 23:33: Hepatitis A IgM Ab Negative, Hep Bs Antigen Negative, Hep B Core IgM Ab Negative, Hepatitis C Ab (EIA) Non Reactive, Hep C Ab Comment Comment 04/06/25 03:56: Haptoglobin 260 04/06/25 13:18: MRSA (PCR) Negative 04/06/25 13:58: PT 15.9 H, INR 1.2 04/07/25 01:12: PT 15.4 H, INR 1.2 04/07/25 06:32: WBC 10.3, RBC 2.96 L, Hgb 9.7 L, Hct 26.9 L, MCV 90.9, MCH 32.8 H, MCHC 36.1 H, RDW Std Deviation 48.5 H, RDW Coeff of Marco A 14.6, Plt Count 120 L , MPV 10.9, Immature Gran % (Auto) 1.500 H, Neut % (Auto) 79.9 H, Lymph % (Auto) 10.3 L, [place] % (Auto) 6.5, Eos % (Auto) 1.4, Baso % (Auto) 0.4, Absolute Neuts (auto) 8.3 H, Absolute Lymphs (auto) 1.06, Nucleated RBC % 0.3, PT 15.4 H, INR 1.2, Sodium 132 L, Potassium 2.3 L*, Chloride 92 L, Carbon Dioxide 29.4, Anion Gap 12, BUN 11, Creatinine 0.85, Estim Creat Clear Calc 119.19, Est GFR (MDRD) Non-Af 109, BUN/Creatinine Ratio 12.9, Glucose 104 H, Calcium 7.3 L, Magnesium 2.0, Total Bilirubin 6.44 H, AST 216 H, ALT 51 H, Alkaline Phosphatase 319 H, T otal Protein 5.4 L, Albumin 2.6 L, Globulin 2.7, Albumin/Globulin Ratio 1.0, Vancomycin Trough 13.4 Physical Exam Const alert, oriented x3, no apparent distress and average body habitus; Negative for healthy appearing or well nourished Constitutional Narrative: deeply jaundiced General Appearance: cooperative HEENT normocephalic, head/scalp atraumatic, hearing grossly normal bilaterally and moist oral mucous membranes Eyes EOMs intact bilaterally; Negative for conjunctivae normal Eyes Narrative: Scleral icterus is present Neck supple and no JVD Neck Narrative: Trachea midline Lymph Lymphatic: no lymphedema noted Resp normal respiratory effort, normal air movement, no retractions, no use of accessory muscles and clear to auscultation bilaterally Cardio regular rate, regular rhythm, S1 normal heart sound, S2 normal heart sound and no murmurs GI normal to inspection, nondistended, normoactive bowel sounds, soft to palpation and non-tender GI Narrative: palpable nontender hepatomegaly, no palpable splenomegaly Extremity normal capillary refill, no clubbing, cyanosis or edema and no calf tenderness Extremity Narrative: Pedal and radial pulses are 2+ General Extremity: no tenderness to palpation of joints or extremities Skin Skin Narrative: skin deeply jaundiced General Skin Exam: no breakdown Neuro oriented x3, moves all extremities, no focal motor deficits and no sensory deficits noted Speech: speech normal Motor Exam: strength 5/5 throughout Psych thought process normal, cooperative and affect normal Appearance: appropriate Assessment & Plan Assessment/Plan (1) Acute hepatitis: (2) Alcohol dependence: PLAN: Plan #Acute hepatitis, likely alcoholic hepatitis * Patient admitted with a complaint of jaundice and generalized malaise. He has a history of significant chronic alcohol intake. He drinks about a liter and a half of rum daily. * Total bilirubin was elevated at 10.4 on admission and continues to trend downwards. Total bilirubin is around 6 today. It is mainly a direct hyperbilirubinemia. AST and ALT as well as ALP have risen up slightly today. * LDH was checked and was elevated at 347. Haptoglobin is within normal limits at 260. Urinalysis did show microhematuria but this has been present since November 2024. * On admission there was concern about possible TTP in light of the elevated bilirubin and concern for hemolysis in light of the microhematuria. However the patient's clinical picture does not fit this. He has a history of chronic alcohol use. His platelets were 141 which whilst lower is not critically low as in TTP levels. Platelets were 163 on admission on 04/05/2025. Additionally he does have a clear picture of chronic alcohol abuse and so alcoholic hepatitis fits the picture better. The hyperbilirubinemia is also more of a direct bilirubinemia and not an indirect bilirubinemia which would be what you would see if it was mainly due to hemolysis. I also spoke to the lab who reviewed the peripheral smear and there were no schistocytes present. * Gastroenterology therefore consulted as some concern this is likely due to acute alcoholic hepatitis. HIV and hepatitis serology pending. * Gastroenterology reviewed patient and per GI, the moderate discriminant function score is 29.72. The MELD score is also elevated at 22. INR was 1.2. * By gastroenterology no need for steroids at this point. * Patient started on IV vancomycin and Zosyn on account of elevated procalcitonin. Blood cultures pending * #Anemia: Hemoglobin is down to 9.7 from 10.3 yesterday today. LDH was elevated but haptoglobin is normal and reticulocyte also pending. Will monitor closely. #Hypokalemia: Replace aggressively and monitor. Potassium is 2.3 today. #Leukocytosis: WBC was 17 on admission and is now down to 10. Procalcitonin was elevated. Blood cultures pending and patient started on broad-spectrum antibiotics. #Hyponatremia: This is likely related to the alcoholic hepatitis. Continue gentle hydration with IV fluids. Sodium today is 132. #Alcohol use disorder * Patient at risk for withdrawal. 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 * On thiamine and folic acid. * On phenobarb taper and CIWA protocol. # Nicotine dependence: Counseled to quit. Nicotine patch as needed DVT prophylaxis: SCDs. Code status: full code Charges/Coding Visit Charges Inpatient E&M: 51630 Subs Hosp L2
[2025-04-07 13:47] LABS: Prothrombin Time (Protime)PT. 15.7 SECONDS (11.7-14.9)
--- NOTE | 2025-04-07 16:11 | PN_ITS ---
Progress Note The 44-year-old gentleman who was admitted with fatigue, weakness, and mild altered mental status is feeling "a lot better." He has been able to eat without any abdominal pain or bloating. He denies any new complaints. He is receiving treatment for hyponatremia and hypokalemia, which are likely secondary to alcohol abuse. Physical Exam Narrative Jaundice Const alert, oriented x3, no apparent distress and healthy appearing General Appearance: cooperative Eyes Sclera: sclera abnormal GI normal to inspection, nondistended, normoactive bowel sounds, soft to palpation, non-tender and non-distended Percussion: normal to percussion Rectal Exam: deferred Assessment & Plan Assessment/Plan (1) Acute hepatitis: (2) Alcohol dependence: (3) Transaminitis: (4) Direct hyperbilirubinemia: (5) Acute alcoholic hepatitis: (6) Hyponatremia: (7) Hypochloremia: (8) Hypokalemia: (9) Jaundice: PLAN: The patient presents with signs and symptoms consistent with acute alcoholic hepatitis. The elevated white blood cell count with a left shift warrants a thorough workup for infection (e.g., blood cultures, chest X-ray, ascitic fluid tap if ascites is present), which is a goldstein contraindication for steroids. He does not have ascites at this time. The elevated bilirubin and INR suggest significant liver dysfunction. To assess these: * [place] Discriminant Function (MDF): Requires a control PT value to calculate. Assuming a common control PT of 11 seconds: MDF = 4.6 * (Patient PT - Control PT) + Total Bilirubin MDF = 4.6 * (15.2 - 11) + 10.4 MDF = 4.6 * 4.2 + 10.4 MDF = 19.32 + 10.4 MDF = 29.72 * MELD Score: Requires INR, creatinine, and total bilirubin. MELD score can be calculated, and a score over 21 also indicates severe disease. If the MDF is >= 32 is greater than or equal to 32 or MELD score is >= 21 is greater than or equal to 21, the patient would be considered for steroid treatment, provided no contraindications exist. Based on the assumed control PT, the MDF is 29.72, which is slightly below the threshold for severe disease. However, the patient's clinical presentation (marked jaundice, malaise, lab values) is significant. Given the MELD score is often a better predictor of 30-day survival, this should also be calculated. Creatinine = 0.75 Bilirubin = 10 INR = 1.2 Sodium = 128 MELD = 22 A MELD score of 22 points carries a estimated 19.63% 3-month mortality. Plan * Supportive Care: Continue supportive care, including nutritional support and management of alcohol withdrawal (likely needs inpatient medical detox). * Infection Workup: Complete a full workup for infection (cultures are essential given the elevated WBC and left shift). * Severity Assessment: Calculate the formal MELD score and potentially the [place] Alcoholic Hepatitis Score (GAHS) to further determine disease severity. Age 44 White blood cell count = 12 BUN = 10 Bilirubin = 10 PT = 13 PT lab normal = 11-13 GAHS = 7 points [facility] alcoholic hepatitis score of less than 9 portend a much better 28 to 84-day mortality survival then scores above 9 can indicate a or survival rate. * Steroid Decision: The decision to use steroids depends on the severity scores (if MDF >=32is greater than or equal to 32 or MELD >=21is greater than or equal to 21) and confirmation of no active infection or other contraind ications (e.g., renal failure, GI bleeding). * If steroids are initiated (e.g., prednisolone 40 mg daily for 28 days), the patient should be monitored closely, and the [place] score should be calculated at day 7 to assess response. * If contraindications exist or the patient is a non-responder to steroids, alternative therapies like pentoxifylline could be considered, though evidence is conflicting. * I do not see any indication for steroids at this time * Abstinence: Emphasize the importance of long-term alcohol abstinence for survival and refer to an alcohol treatment program. * Monitoring: Monitor liver function, electrolytes (especially K, Na), renal function, and signs of infection closely. Replete potassium immediately. 04/07/2025 * Labs: * Hemoglobin (Hgb): Decreased from 10.3 to 9.7 g/dL (down 0.6). * INR: Stable at 1.2. * PTT: Stable at 15.4 seconds. * Sodium (Na): Increased from 130 to 132 mmol/L. * Potassium (K): Increased from 2.1 to 2.3 mmol/L. * Total Bilirubin: Decreased from 9 to 6.4 mg/dL. * AST: Decreased to 216 U/L (previously severely elevated). * ALT: Decreased to 51 U/L (previously severely elevated). * Alkaline Phosphatase (Alk Phos): Decreased to 319 U/L (previously severely elevated). The patient's clinical picture is improving overall. His subjective symptoms are better, and his liver function tests (LFTs) have significantly improved, supporting a positive response to treatment for presumed acute alcoholic hepatitis. * Acute Alcoholic Hepatitis: Improving as evidenced by better LFTs and clinical status. Bilirubin is down. * Anemia: Hemoglobin decreased slightly to 9.7 g/dL. This is mild and could be related to underlying chronic disease or nutritional deficiencies common in alcohol abuse. Requires monitoring. * Electrolyte Abnormalities: Sodium and potassium levels are improving with treatment, moving towards normal range. Continued management is necessary. * Coagulopathy: INR and PTT remain stable and only mildly elevated/normal, which is a positive sign in the context of liver dysfunction. P * Continue current management plan for acute alcoholic hepatitis, including supportive care and nutritional support. * Continue repletion of sodium and potassium with close monitoring of levels. * Monitor hemoglobin levels closely; if the downward trend continues or becomes more significant, consider further workup for the cause (e.g., GI bleed, nutritional deficiency). * Monitor liver function tests and clinical status daily to ensure continued improvement. * Continue to encourage oral intake as tolerated. * Physical therapy consult for deconditioning secondary to fatigue and weakness as patient improves clinically. Visit Charges Inpatient E&M: 16096 [facility] L3
[2025-04-07 16:34] LABS: Potassium 2.5 mmol/L (3.3-5.1)
[2025-04-07] MEDS: 0.9% Normal Saline (250mL Bag) 250 ML 15 ML IV (23:17)
[2025-04-08] MEDS: 0.9% Saline Lock 10 ML Syringe IV ×3 (00:46→13:51)
[2025-04-08 01:46] LABS: Prothrombin Time (Protime)PT. 15.6 SECONDS (11.7-14.9)
[2025-04-08 03:53] VITALS: BMI 24.0
[2025-04-08 05:00] VITALS: BP 131/76; PULSE 104; RESP 16; TEMP 37.9; O2SAT 99
[2025-04-08] MEDS: Piperacil/Tazobactam 3.375 GM in 0.9% Normal Saline (50mL MB+) 50 ML IV ×3 (05:07→21:58)
[2025-04-08 06:31] LABS: Hematocrit 27.6 % (40-54); Hemoglobin 9.7 g/dL (13.0-16.5); Immature Granulocytes Count 0.310 X10^3/uL (0.0-0.0); Mean Corp Hgb Conc 35.1 g/dL (32-36); Mean Corpuscular Volume 92.9 fL (80-94); Mean Platelet Vol. 10.9 fl (6.2-12.0); NRBC Flagged by Analyzer 0.2 % (0-5); Platelet Count 144 K/mm3 (150-450); RBC Distribution Width CV 15.3 % (11.6-14.6); RBC Distribution Width SD 51.3 fl (35.1-43.9); Red Blood Count 2.97 M/mm3 (4.6-6.2); White Blood Count 13.2 K/mm3 (4.4-11.0)
[2025-04-08 06:39] LABS: Prothrombin Time (Protime)PT. 15.7 SECONDS (11.7-14.9)
[2025-04-08 06:56] LABS: Magnesium 1.9 mg/dL (1.5-2.2); Vancomycin, Trough Level 13.9 ug/mL (5.0-15.0)
[2025-04-08 06:59] LABS: AST(SGOT) 226 U/L (<=37); Alanine Aminotransfer ALT/SGPT 59 U/L (<=46); Albumin, Serum 2.6 g/dL (3.5-5.0); Alkaline Phosphatase 325 U/L (40-129); Anion Gap 11 (5-15); BUN 9 mg/dL (4-19); BUN/Creat Ratio 11.1 RATIO (10-20); Calcium,Total 7.5 mg/dL (7.6-11.0); Carbon Dioxide 26.3 mmol/L (21.0-32.0); Chloride 97 mmol/L (98-108); Estimated Creatinine Clearance 123.55 ml/min (50-250); Globulin 2.7 g/dL (2.2-4.2); Glucose 89 mg/dL (70-99); Potassium 2.7 mmol/L (3.3-5.1)
--- NOTE | 2025-04-08 07:14 | PCM.RX.CS ---
Consult Antibiotic Management Pharmacy has been consulted to manage selected antibiotic: Vancomycin Type of Intervention Type of Consult: Follow-up Suspected Infection Suspected Infection: Other (EMPIRIC/UNKNOWN) Prior Doses of Antibiotics Prior Doses of Antibiotics Received/Current Regimen: Vancomycin 1000 mg Q8H last dose given 04/07/25 @ 1484 Labs Labs: Sodium 134 mmol/L (133-145) 04/08/25 06:19 Potassium 2.7 mmol/L (3.3-5.1) L* 04/08/25 06:19 Chloride 97 mmol/L (98-108) L 04/08/25 06:19 Carbon Dioxide 26.3 mmol/L (21.0-32.0) 04/08/25 06:19 Anion Gap 11 (5-15) 04/08/25 06:19 BUN 9 mg/dL (4-19) 04/08/25 06:19 Creatinine 0.82 mg/dL (0.70-1.20) 04/08/25 06:19 Est GFR (MDRD) Non-Af 110 (>60) 04/08/25 06:19 BUN/Creatinine Ratio 11.1 RATIO (10-20) 04/08/25 06:19 Glucose 89 mg/dL (70-99) 04/08/25 06:19 Vancomycin Trough 13.9 ug/mL (5.0-15.0) 04/08/25 06:19 Dosing Weight Weight used for dosin.3 kg Estimated Creatinine Clearance Estimated Creatinine Clearance: ~ 124 Goal Trough Goal Trough: 15-20 mcg/mL Pharmacy Plan for Drug Dosing Pharmacy Plan for Drug Dosing: Vancomycin trough = 13.9, increase to 1250 mg q8h Pharmacy Service will continue to monitor and adjust dosing as required. Follow-Up Labs Follow-Up Labs: Trough: Vancomycin Date/Time Labs Ordered Labs to be done on [date and time ordered]: 04/09/25 @ 0700
[2025-04-08] MEDS: Vancomycin HCl 1,250 MG in 0.9% Normal Saline (250mL Bag) 250 ML 167 MG IV ×3 (07:55→22:41)
[2025-04-08 07:57] VITALS: BP 122/77; PULSE 103; RESP 16; TEMP 37.3; O2SAT 95
[2025-04-08] MEDS: Thiamine Hydrochloride 100 MG Tablet PO (08:05)
[2025-04-08] MEDS: Potassium Chloride Oral Tablet 20 MEQ 40 MEQ PO (08:05)
[2025-04-08] MEDS: Nicotine (PBKC) 21 MG Patch TD (08:05)
[2025-04-08] MEDS: Ensure Plus High Protein 120 ML LIQUID PO (08:13)
[2025-04-08] MEDS: Potassium Chloride 10mEq/100mL 10 MEQ/100 ML IV.SOLN. 100 MEQ IV BOLUS ×4 (08:55→12:17)
--- NOTE | 2025-04-08 11:49 | PN_ITS ---
Subjective Subjective Patient seen and examined with his nurse by his bedside. He was comfortably eating breakfast and had no complaints. Review of systems otherwise negative. Patient continues to have a low-grade fever and some chills 0.2 Fahrenheit this morning. He is also mildly tachycardic with heart rate of 103. Blood cultures are still pending. Bilirubin continues to trend down though AST ALT and ALP have marginally trended upwards. Objective Data Objective Data Vital Signs: Vital Signs Temp Pulse Resp BP Pulse Ox O2 Del Method 99.2 F H 103 H 16 122/77 H 95 Room Air 04/08/25 07:57 04/08/25 07:57 04/08/25 07:57 04/08/25 07:57 04/08/25 07:57 04/08/25 07:57 Oxygen Delivery Method Room Air Weight: 177 lb 0.499 oz Body Mass Index (BMI) 24.0 Intake & Output: Intake and Output for Last 24 Hours 04/06/25 04/07/25 04/08/25 23:59 23:59 23:59 Intake Total 5154 / 5154 3010 / 3010 644.5 / 644.5 Output Total 150 / 150 Balance 5004 / 5004 3010 / 3010 644.5 / 644.5 Lab / Micro Data 04/08/25 06:19 04/08/25 06:19 Labs: Laboratory Results - last 24 hr 04/07/25 13:21: PT 15.7 H, INR 1.2 04/07/25 16:00: Potassium 2.5 L* 04/08/25 01:24: PT 15.6 H, INR 1.2 04/08/25 06:19: WBC 13.2 H, RBC 2.97 L, Hgb 9.7 L, Hct 27.6 L, MCV 92.9, MCH 32.7 H, MCHC 35.1, RDW Std Deviation 51.3 H, RDW Coeff of Marco A 15.3 H, Plt Count 144 L, MPV 10.9, Immature Gran % (Auto) 2.300 H, Neut % (Auto) 81.9 H, Lymph % (Auto) 8.5 L, [place] % (Auto) 5.4, Eos % (Auto) 1.4, Baso % (Auto) 0.5, Absolute Neuts (auto) 10.8 H, Absolute Lymphs (auto) 1.12, Nucleated RBC % 0.2, PT 15.7 H , INR 1.2, Sodium 134, Potassium 2.7 L*, Chloride 97 L, Carbon Dioxide 26.3, Anion Gap 11, BUN 9, Creatinine 0.82, Estim Creat Clear Calc 123.55, Est GFR (MDRD) Non-Af 110, BUN/Creatinine Ratio 11.1, Glucose 89, Calcium 7.5 L, Magnesium 1.9, Total Bilirubin 5.33 H, AST 226 H, ALT 59 H, Alkaline Phosphatase 325 H, Total Protein 5.4 L, Albumin 2.6 L, Globulin 2.7, Albumin/Globulin Ratio 1.0, Vancomycin Trough 13.9 Micro: Microbiology 04/06/25 05:50 Blood Culture (Wb) - Right Forearm Blood Culture - Preliminary No growth in 48 hours. 04/06/25 05:45 Blood Culture (Wb) - Anticubital Right Blood Culture - Preliminary No growth in 48 hours. Physical Exam Const alert, oriented x3, no apparent distress and average body habitus; Negative for healthy appearing or well nourished Constitutional Narrative: deeply jaundiced General Appearance: cooperative HEENT normocephalic, head/scalp atraumatic, hearing grossly normal bilaterally and moist oral mucous membranes Eyes EOMs intact bilaterally; Negative for conjunctivae normal Eyes Narrative: Scleral icterus is present Neck supple and no JVD Neck Narrative: Trachea midline Lymph Lymphatic: no lymphedema noted Resp normal respiratory effort, normal air movement, no retractions, no use of accessory muscles and clear to auscultation bilaterally Auscultation: Negative for rales, rhonchi or wheezes Cardio regular rate, regular rhythm, S1 normal heart sound, S2 normal heart sound, no murmurs and no rub GI normal to inspection, nondistended, normoactive bowel sounds, soft to palpation and non-tender GI Narrative: palpable nontender hepatomegaly, no palpable splenomegaly Extremity normal capillary refill, no clubbing, cyanosis or edema and no calf tenderness General Extremity: no tenderness to palpation of joints or extremities Skin Skin Narrative: skin deeply jaundiced General Skin Exam: no breakdown Neuro oriented x3, CN's II-XII intact bilaterally, moves all extremities, no focal motor deficits and no sensory deficits noted Speech: speech normal Motor Exam: strength 5/5 throughout Psych thought process normal, cooperative and affect normal Appearance: appropriate Assessment & Plan Assessment/Plan (1) Acute hepatitis: (2) Alcohol dependence: PLAN: Plan #Acute hepatitis, likely alcoholic hepatitis * Patient admitted with a complaint of jaundice and generalized malaise. He has a history of significant chronic alcohol intake. He drinks about a liter and a half of rum daily. * Total bilirubin was elevated at 10.4 on admission and continues to trend downwards. Total bilirubin is further down to 5.33 today. It is mainly a direct hyperbilirubinemia. AST and ALT as well as ALP have risen up slightly today. * LDH was checked and was elevated at 347. Haptoglobin is within normal limits at 260. Urinalysis did show microhematuria but this has been present since November 2024. * On admission there was concern about possible TTP in light of the elevated bilirubin and concern for hemolysis in light of the microhematuria. However the patient's clinical picture does not fit this. He has a history of chronic alcohol use. His platelets were 141 which whilst lower is not critically low as in TTP levels. Platelets were 163 on admission on 04/05/2025. Additionally he does have a clear picture of chronic alcohol abuse and so alcoholic hepatitis fits the picture better. The hyperbilirubinemia is also more of a direct bilirubinemia and not an indirect bilirubinemia which would be what you would see if it was mainly due to hemolysis. I also spoke to the lab who reviewed the peripheral smear and there were no schistocytes present. * Gastroenterology therefore consulted as some concern this is likely due to acute alcoholic hepatitis. HIV and hepatitis serology pending. * Gastroenterology reviewed patient and per GI, the moderate discriminant function score is 29.72. The MELD score is also elevated at 22. INR was 1.2. * platelets today are 144. * Per gastroenterology no need for steroids at this point. * Patient on IV vancomycin and Zosyn on account of elevated procalcitonin. blood cultures negative. Will complete a 5 day course of antibiotics as a precaution. * #Anemia: Hemoglobin today remains 9.7. LDH was elevated but haptoglobin is normal and reticulocyte count is elevated at 2.89%. Will monitor closely. #Hypokalemia: Replace aggressively and monitor. Potassium is 2.7 today. magnesium WNL #Leukocytosis: WBC was 17 on admission and is now down to 13.2; was 10 yesterday Procalcitonin was elevated. Blood cultures pare negative after 48 hours. Will complete a 5 day course of antibiotics as a precaution. #Hyponatremia: This is likely related to the alcoholic hepatitis. Continue gentle hydration with IV fluids. Sodium today is up to 134.. #Alcohol use disorder * Patient at risk for withdrawal. 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 * On thiamine and folic acid. * On phenobarb taper and CIWA protocol. # Nicotine dependence: Counseled to quit. Nicotine patch as needed DVT prophylaxis: SCDs. Code status: full code Charges/Coding Visit Charges Inpatient E&M: 90112 Subs Hosp L2
[2025-04-08 13:41] VITALS: BP 107/75; PULSE 103; RESP 16; TEMP 37.1; O2SAT 98
[2025-04-08 15:27] LABS: Potassium 3.0 mmol/L (3.3-5.1)
[2025-04-08 15:29] LABS: Prothrombin Time (Protime)PT. 16.2 SECONDS (11.7-14.9)
--- NOTE | 2025-04-08 17:09 | PN_ITS ---
Progress Note The patient is a 44-year-old male on day #4 of his hospital admission for acute alcoholic hepatitis. He reports tolerating a diet well. He describes mild abdominal pain, which he rates as a 2 out of 10 on a pain scale.On day 4 of hospitalization for acute alcoholic hepatitis, the patient's ongoing symptoms of tachycardia and intermittent fever are common as part of the systemic inflammatory response syndrome (SIRS) associated with the condition. The mild abdominal pain and tolerating a diet are positive indicators that the patient is stable and potentially improving in some aspects. Physical Exam Const alert, oriented x3, no apparent distress and healthy appearing General Appearance: cooperative GI normal to inspection, nondistended, normoactive bowel sounds, soft to palpation, non-tender and non-distended Percussion: normal to percussion Rectal Exam: deferred Assessment & Plan Assessment/Plan (1) Acute hepatitis: (2) Alcohol dependence: (3) Transaminitis: (4) Direct hyperbilirubinemia: (5) Acute alcoholic hepatitis: (6) Hyponatremia: (7) Hypochloremia: (8) Hypokalemia: (9) Jaundice: PLAN: The patient presents with signs and symptoms consistent with acute alcoholic hepatitis. The elevated white blood cell count with a left shift warrants a thorough workup for infection (e.g., blood cultures, chest X-ray, ascitic fluid tap if ascites is present), which is a goldstein contraindication for steroids. He does not have ascites at this time. The elevated bilirubin and INR suggest significant liver dysfunction. To assess these: * Lioey Discriminant Function (MDF): Requires a control PT value to calculate. Assuming a common control PT of 11 seconds: MDF = 4.6 * (Patient PT - Control PT) + Total Bilirubin MDF = 4.6 * (15.2 - 11) + 10.4 MDF = 4.6 * 4.2 + 10.4 MDF = 19.32 + 10.4 MDF = 29.72 * MELD Score: Requires INR, creatinine, and total bilirubin. MELD score can be calculated, and a score over 21 also indicates severe disease. If the MDF is >= 32 is greater than or equal to 32 or MELD score is >= 21 is greater than or equal to 21, the patient would be considered for steroid treatment, provided no contraindications exist. Based on the assumed control PT, the MDF is 29.72, which is slightly below the threshold for severe disease. However, the patient's clinical presentation (marked jaundice, malaise, lab values) is significant. Given the MELD score is often a better predictor of 30-day survival, this should also be calculated. Creatinine = 0.75 Bilirubin = 10 INR = 1.2 Sodium = 128 MELD = 22 A MELD score of 22 points carries a estimated 19.63% 3-month mortality. Plan * Supportive Care: Continue supportive care, including nutritional support and management of alcohol withdrawal (likely needs inpatient medical detox). * Infection Workup: Complete a full workup for infection (cultures are essential given the elevated WBC and left shift). * Severity Assessment: Calculate the formal MELD score and potentially the Todd Alcoholic Hepatitis Score (GAHS) to further determine disease severity. Age 44 White blood cell count = 12 BUN = 10 Bilirubin = 10 PT = 13 PT lab normal = 11-13 GAHS = 7 points [facility] alcoholic hepatitis score of less than 9 portend a much better 28 to 84-day mortality survival then scores above 9 can indicate a or survival rate. * Steroid Decision: The decision to use steroids depends on the severity scores (if MDF >=32is greater than or equal to 32 or MELD >=21is greater than or equal to 21) and confirmation of no active infection or other contraindications (e.g., renal failure, GI bleeding). * If steroids are initiated (e.g., prednisolone 40 mg daily for 28 days), the patient should be monitored closely, and the Lille score should be calculated at day 7 to assess response. * If contraindications exist or the patient is a non-responder to steroids, alternative therapies like pentoxifylline could be considered, though evidence is conflicting. * I do not see any indication for steroids at this time * Abstinence: Emphasize the importance of long-term alcohol abstinence for survival and refer to an alcohol treatment program. * Monitoring: Monitor liver function, electrolytes (especially K, Na), renal function, and signs of infection closely. Replete potassium immediately. 04/07/2025 * Labs: * Hemoglobin (Hgb): Decreased from 10.3 to 9.7 g/dL (down 0.6). * INR: Stable at 1.2. * PTT: Stable at 15.4 seconds. * Sodium (Na): Increased from 130 to 132 mmol/L. * Potassium (K): Increased from 2.1 to 2.3 mmol/L. * Total Bilirubin: Decreased from 9 to 6.4 mg/dL. * AST: Decreased to 216 U/L (previously severely elevated). * ALT: Decreased to 51 U/L (previously severely elevated). * Alkaline Phosphatase (Alk Phos): Decreased to 319 U/L (previously severely elevated). 04/08/2025 The patient's clinical picture is improving overall. His subjective symptoms are better, and his liver function tests (LFTs) have significantly improved, supporting a positive response to treatment for presumed acute alcoholic hepatitis. * Acute Alcoholic Hepatitis: Improving as evidenced by better LFTs and clinical status. Bilirubin is down. * Anemia: Hemoglobin decreased slightly to 9.7 g/dL. This is mild and could be related to underlying chronic disease or nutritional deficiencies common in alcohol abuse. Requires monitoring. * Electrolyte Abnormalities: Sodium and potassium levels are improving with treatment, moving towards normal range. Continued management is necessary. * Coagulopathy: INR and PTT remain stable and only mildly elevated/normal, which is a positive sign in the context of liver dysfunction. P * Continue current management plan for acute alcoholic hepatitis, including supportive care and nutritional support. * Continue repletion of sodium and potassium with close monitoring of levels. * Monitor hemoglobin levels closely; if the downward trend continues or becomes more significant, consider further workup for the cause (e.g., GI bleed, nutritional deficiency). * Monitor liver function tests and clinical status daily to ensure continued improvement. * Continue to encourage oral intake as tolerated. * Physical therapy consult for deconditioning secondary to fatigue and weakness as patient improves clinically. The patient is currently stable and improving clinically, tolerating a diet with mild, manageable pain. He remains on day #4 of treatment for acute alcoholic hepatitis. The intermittent fever and tachycardia warrant continued monitoring and investigation for potential underlying infection or ongoing inflammatory response related to the hepatitis. * Vigilant Infection Monitoring: Fever and tachycardia are hallmarks of both alcoholic hepatitis itself and systemic infection, which is a leading cause of mortality in these patients. The clinical team must maintain a high suspicion for active infection (e.g., spontaneous bacterial peritonitis, urinary tract infection, pneumonia, C. difficile colitis) and conduct a vigilant search, including appropriate cultures and diagnostic paracentesis if ascites is present. Empiric broad-spectrum antibiotics may be considered while awaiting culture results if an infection is suspected. * Nutritional Support: The patient tolerating a diet is a good sign. The goal is to provide adequate nutrition to address the common severe malnutrition associated with the disease. * Alcohol Withdrawal Management: The patient should continue to be monitored and treated for alcohol withdrawal with benzodiazepines via a structured protocol (e.g., CIWA-Ar) if needed, using the minimum effective dose to avoid exacerbating hepatic encephalopathy. * Specific Therapies (if severe): If the patient's case is classified as severe (Maddrey's Discriminant Function score >=32 or MELD score >=21), they would typically have been started on specific therapy like corticosteroids or pentoxifylline upon admission, provided there were no contraindications (e.g., active infection). On day 4, the clinical team may assess for an early response to therapy, although the formal Lille score is usually calculated on day 7 to determine if the treatment should continue or be stopped. * Supportive Care: This includes continued abstinence counseling, IV fluids with vitamin and mineral supplementation (thiamine, folate, multivitamins, etc.), and avoiding hepatotoxic or nephrotoxic medications. * Abdominal Pain Management: The mild abdominal pain (2/10) should be managed with appropriate, non-hepatotoxic analgesics. Given the potential for c omplications like pancreatitis, a thorough assessment for the cause of the pain is important P * Continue current management for acute alcoholic hepatitis. * Monitor vital signs closely for resolution of tachycardia and fevers. * Administer antipyretics and pain management as needed for fever and mild abdominal discomfort. * Continue monitoring lab values (e.g., liver function tests, complete blood count, inflammatory markers) to track disease progression and response to therapy. * Investigate potential sources of infection with fevers persist, including possible blood cultures and further diagnostics as indicated by clinical picture. * Continue current dietary regimen. * Patient education on the importance of alcohol cessation and long-term management of alcoholic liver disease.
[2025-04-08 18:27] VITALS: BP 111/79; PULSE 113; RESP 16; TEMP 37.1; O2SAT 98
[2025-04-08 21:54] VITALS: BP 110/67; PULSE 109; RESP 18; TEMP 37; O2SAT 97
[2025-04-09 02:10] LABS: Prothrombin Time (Protime)PT. 16.6 SECONDS (11.7-14.9)
[2025-04-09 02:41] VITALS: BMI 28.0
[2025-04-09 03:49] VITALS: BP 130/83; PULSE 118; RESP 18; TEMP 36.8; O2SAT 98
[2025-04-09] MEDS: Piperacil/Tazobactam 3.375 GM in 0.9% Normal Saline (50mL MB+) 50 ML IV ×3 (05:43→21:28)
[2025-04-09] MEDS: 0.9% Saline Lock 10 ML Syringe IV ×2 (05:46→21:27)
[2025-04-09 06:55] LABS: Hematocrit 26.1 % (40-54); Hemoglobin 9.4 g/dL (13.0-16.5); Immature Granulocytes Count 0.480 X10^3/uL (0.0-0.0); Mean Corp Hgb Conc 36.0 g/dL (32-36); Mean Corpuscular Volume 92.6 fL (80-94); Mean Platelet Vol. 11.1 fl (6.2-12.0); NRBC Flagged by Analyzer 0 % (0-5); Platelet Count 155 K/mm3 (150-450); RBC Distribution Width CV 15.6 % (11.6-14.6); RBC Distribution Width SD 52.6 fl (35.1-43.9); Red Blood Count 2.82 M/mm3 (4.6-6.2); White Blood Count 14.8 K/mm3 (4.4-11.0)
[2025-04-09 07:13] LABS: AST(SGOT) 169 U/L (<=37); Alanine Aminotransfer ALT/SGPT 50 U/L (<=46); Albumin, Serum 2.5 g/dL (3.5-5.0); Alkaline Phosphatase 306 U/L (40-129); Anion Gap 10 (5-15); BUN 10 mg/dL (4-19); BUN/Creat Ratio 10.5 RATIO (10-20); Calcium,Total 7.5 mg/dL (7.6-11.0); Carbon Dioxide 24.5 mmol/L (21.0-32.0); Chloride 98 mmol/L (98-108); Estimated Creatinine Clearance 119.43 ml/min (50-250); Globulin 2.7 g/dL (2.2-4.2); Glucose 91 mg/dL (70-99); Potassium 2.8 mmol/L (3.3-5.1)
[2025-04-09 07:15] LABS: Vancomycin, Trough Level 17.8 ug/mL (5.0-15.0)
--- NOTE | 2025-04-09 07:23 | PCM.RX.CS ---
Consult Antibiotic Management Pharmacy has been consulted to manage selected antibiotic: Vancomycin Type of Intervention Type of Consult: Follow-up Suspected Infection Suspected Infection: Other (EMPIRIC) Prior Doses of Antibiotics Prior Doses of Antibiotics Received/Current Regimen: Vancomycin 1250 mg Q8H last dose given 04/08/25 @ 2241 Labs Labs: Sodium 132 mmol/L (133-145) L 04/09/25 06:40 Potassium 2.8 mmol/L (3.3-5.1) L 04/09/25 06:40 Chloride 98 mmol/L (98-108) 04/09/25 06:40 Carbon Dioxide 24.5 mmol/L (21.0-32.0) 04/09/25 06:40 Anion Gap 10 (5-15) 04/09/25 06:40 BUN 10 mg/dL (4-19) 04/09/25 06:40 Creatinine 0.92 mg/dL (0.70-1.20) 04/09/25 06:40 Est GFR (MDRD) Non-Af 104 (>60) 04/09/25 06:40 BUN/Creatinine Ratio 10.5 RATIO (10-20) 04/09/25 06:40 Glucose 91 mg/dL (70-99) 04/09/25 06:40 Vancomycin Trough 17.8 ug/mL (5.0-15.0) H 04/09/25 06:40 Microbiology Microbiology: Microbiology 04/06/25 05:50 Blood Culture (Wb) - Right Forearm Blood Culture - Preliminary No growth in 48 hours. 04/06/25 05:45 Blood Culture (Wb) - Anticubital Right Blood Culture - Preliminary No growth in 48 hours. Dosing Weight Weight used for dosin kg Estimated Creatinine Clearance Estimated Creatinine Clearance: ~ 120 Goal Trough Goal Trough: 15-20 mcg/mL Pharmacy Plan for Drug Dosing Pharmacy Plan for Drug Dosing: Vancomycin trough = 17.8, continue current dosing Pharmacy Service will continue to monitor and adjust dosing as required. Follow-Up Labs Follow-Up Labs: Trough: Vancomycin Date/Time Labs Ordered Labs to be done on [date and time ordered]: 04/10/25 @ 0700
[2025-04-09 07:59] LABS: Prothrombin Time (Protime)PT. 16.4 SECONDS (11.7-14.9)
[2025-04-09] MEDS: Potassium Chloride 10mEq/100mL 10 MEQ/100 ML IV.SOLN. 100 MEQ IV BOLUS ×4 (08:07→12:49)
[2025-04-09] MEDS: Vancomycin HCl 1,250 MG in 0.9% Normal Saline (250mL Bag) 250 ML 167 MG IV ×2 (08:10→16:12)
[2025-04-09] MEDS: Thiamine Hydrochloride 100 MG Tablet PO (08:19)
[2025-04-09 08:22] VITALS: BP 121/76; PULSE 113; RESP 14; TEMP 37.3; O2SAT 95
[2025-04-09] MEDS: Nicotine (PBKC) 21 MG Patch TD (10:23)
--- NOTE | 2025-04-09 12:55 | PN_ITS ---
Subjective Subjective Patient seen and examined this morning with his nurse by his bedside. He had no active complaints. He is a bit tachycardic today. Potassium still remains low at 2.8. His liver enzymes continue to trend downwards and bilirubin is around 4 today. Review of systems otherwise negative. Objective Data Objective Data Vital Signs: Vital Signs Temp Pulse Resp BP Pulse Ox O2 Del Method 99.1 F 113 H 14 121/76 H 95 Room Air 04/09/25 08:22 04/09/25 08:22 04/09/25 08:22 04/09/25 08:22 04/09/25 08:22 04/09/25 08:22 Oxygen Delivery Method Room Air Weight: 207 lb 3.752 oz Body Mass Index (BMI) 28.0 Intake & Output: Intake and Output for Last 24 Hours 04/07/25 04/08/25 04/09/25 23:59 23:59 23:59 Intake Total 3010 / 3010 1238.98 / 1238.98 1300 / 1300 Balance 3010 / 3010 1238.98 / 1238.98 1300 / 1300 Lab / Micro Data 04/09/25 06:40 04/09/25 06:40 Labs: Laboratory Results - last 24 hr 04/08/25 14:47: PT 16.2 H, INR 1.3, Potassium 3.0 L 04/09/25 01:29: PT 16.6 H, INR 1.3 04/09/25 06:40: WBC 14.8 H, RBC 2.82 L, Hgb 9.4 L, Hct 26.1 L, MCV 92.6, MCH 33.3 H, MCHC 36.0, RDW Std Deviation 52.6 H, RDW Coeff of Marco A 15.6 H, Plt Count 155, MPV 11.1, Immature Gran % (Auto) 3.200 H, Neut % (Auto) 79.6 H, Lymph % (Auto) 8.6 L, [place] % (Auto) 7.1, Eos % (Auto) 1.0, Baso % (Auto) 0.5, Absolute Neuts (auto) 11.8 H, Absolute Lymphs (auto) 1.28, Nucleated RBC % 0, PT 16.4 H, INR 1.3, Sodium 132 L, Potassium 2.8 L, Chloride 98, Carbon Dioxide 24.5, Anion Gap 10, BUN 10, Creatinine 0.92, Estim Creat Clear Calc 119.43, Est GFR (MDRD) Non-Af 104, BUN/Creatinine Ratio 10.5, Glucose 91, Calcium 7.5 L, Total Bilirubin 4.91 H, AST 169 H, ALT 50 H, Alkaline Phosphatase 306 H, Total Protein 5.2 L, Albumin 2.5 L, Globulin 2.7, Albumin/Globulin Ratio 0.9, Vancomycin Trough 17.8 H Micro: Microbiology 04/06/25 05:50 Blood Culture (Wb) - Right Forearm Blood Culture - Preliminary No growth in 48 hours. 04/06/25 05:45 Blood Culture (Wb) - Anticubital Right Blood Culture - Preliminary No growth in 48 hours. Physical Exam Const alert, oriented x3, no apparent distress and average body habitus; Negative for healthy appearing or well nourished Constitutional Narrative: deeply jaundiced General Appearance: cooperative HEENT normocephalic, head/scalp atraumatic, hearing grossly normal bilaterally and moist oral mucous membranes Eyes EOMs intact bilaterally; Negative for conjunctivae normal Eyes Narrative: Scleral icterus is present Neck supple and no JVD Neck Narrative: Trachea midline Lymph Lymphatic: no lymphedema noted Resp normal respiratory effort, normal air movement, no retractions, no use of accessory muscles and clear to auscultation bilaterally Auscultation: Negative for rales, rhonchi or wheezes Cardio regular rhythm, S1 normal heart sound, S2 normal heart sound, no murmurs, no rub, no gallops and no clicks Cardio Narrative: tachycardic. HR is 113. GI normal to inspection, nondistended, normoactive bowel sounds, soft to palpation and non-tender GI Narrative: palpable nontender hepatomegaly, no palpable splenomegaly Extremity normal capillary refill, no clubbing, cyanosis or edema and no calf tenderness Extremity Narrative: Pedal and radial pulses are 2+ General Extremity: no tenderness to palpation of joints or extremities Skin Skin Narrative: skin deeply jaundiced, though jaundice is improving General Skin Exam: no breakdown Neuro oriented x3, CN's II-XII intact bilaterally, moves all extremities, no focal motor deficits and no sensory deficits noted Speech: speech normal Motor Exam: strength 5/5 throughout Psych thought process normal, cooperative and affect normal Appearance: appropriate Assessment & Plan Assessment/Plan (1) Acute hepatitis: (2) Alcohol dependence: PLAN: Plan #Acute hepatitis, likely alcoholic hepatitis * Patient admitted with a complaint of jaundice and generalized malaise. He has a history of significant chronic alcohol intake. He drinks about a liter and a half of rum daily. * Total bilirubin was elevated at 10.4 on admission and continues to trend downwards. Total bilirubin is further down to 5.33 today. It is mainly a direct hyperbilirubinemia. AST and ALT as well as ALP have risen up slightly today. * LDH was checked and was elevated at 347. Haptoglobin is within normal limits at 260. Urinalysis did show microhematuria but this has been present since November 2024. * On admission there was concern about possible TTP in light of the elevated bilirubin and concern for hemolysis in light of the microhematuria. However the patient's clinical picture does not fit this. He has a history of chronic alcohol use. His platelets were 141 which whilst lower is not critically low as in TTP levels. Platelets were 163 on admission on 04/05/2025. Additionally he does have a clear picture of chronic alcohol abuse and so alcoholic hepatitis fits the picture better. The hyperbilirubinemia is also more of a direct bilirubinemia and not an indirect bilirubinemia which would be what you would see if it was mainly due to hemolysis. I also spoke to the lab who reviewed the peripheral smear and there were no schistocytes present. * Gastroenterology therefore consulted as some concern this is likely due to acute alcoholic hepatitis. HIV and hepatitis serology pending. * Gastroenterology reviewed patient and per GI, the moderate discriminant function score is 29.72. The MELD score is also elevated at 22. INR was 1.2. * platelets today are up to 155. * Per gastroenterology no need for steroids at this point. * Patient on IV vancomycin and Zosyn on account of elevated procalcitonin. blood cultures negative. Will complete a 5 day course of antibiotics as a precaution. Will DC vancomycin for now * #Anemia: Hemoglobin today is 9.4. LDH was elevated but haptoglobin is normal and reticulocyte count is elevated at 2.89%. Will monitor closely. #Hypokalemia: Replace aggressively and monitor. Potassium is 2.8 today. magnesium WNL #Leukocytosis: WBC was 17 on admission and is now down to 14.8 today; Procalcitonin was elevated. Blood cultures pare negative after 48 hours. Will complete a 5 day course of antibiotics as a precaution. #Hyponatremia: This is likely related to the alcoholic hepatitis. sodium is 132 today. #Alcohol use disorder * Patient at risk for withdrawal. 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 * On thiamine and folic acid. * On phenobarb taper and CIWA protocol. # Nicotine dependence: Counseled to quit. Nicotine patch as needed DVT prophylaxis: SCDs. Code status: full code Charges/Coding Visit Charges Inpatient E&M: 94441 Subs Hosp L2
[2025-04-09 13:25] LABS: Prothrombin Time (Protime)PT. 16.6 SECONDS (11.7-14.9)
[2025-04-09 14:28] VITALS: BP 117/75; PULSE 110; RESP 19; TEMP 37.7; O2SAT 95
--- NOTE | 2025-04-09 18:22 | PN_ITS ---
Progress Note 44-year-old male, day #4 of hospital admission, presenting with severe alcoholic hepatitis. Patient reports tolerating a diet. He was experiencing some loose stools, which have now resolved. No new subjective complaints reported at this time. Physical Exam Const alert, oriented x3, no apparent distress and healthy appearing General Appearance: cooperative GI normal to inspection, nondistended, normoactive bowel sounds, soft to palpation, non-tender and non-distended Percussion: normal to percussion Rectal Exam: deferred Assessment & Plan Assessment/Plan (1) Acute hepatitis: (2) Alcohol dependence: (3) Transaminitis: (4) Direct hyperbilirubinemia: (5) Acute alcoholic hepatitis: (6) Hyponatremia: (7) Hypochloremia: (8) Hypokalemia: (9) Jaundice: PLAN: The patient presents with signs and symptoms consistent with acute alcoholic hepatitis. The elevated white blood cell count with a left shift warrants a thorough workup for infection (e.g., blood cultures, chest X-ray, ascitic fluid tap if ascites is present), which is a goldstein contraindication for steroids. He does not have ascites at this time. The elevated bilirubin and INR suggest significant liver dysfunction. To assess these: * Maddrey Discriminant Function (MDF): Requires a control PT value to calculate. Assuming a common control PT of 11 seconds: MDF = 4.6 * (Patient PT - Control PT) + Total Bilirubin MDF = 4.6 * (15.2 - 11) + 10.4 MDF = 4.6 * 4.2 + 10.4 MDF = 19.32 + 10.4 MDF = 29.72 * MELD Score: Requires INR, creatinine, and total bilirubin. MELD score can be calculated, and a score over 21 also indicates severe disease. If the MDF is >= 32 is greater than or equal to 32 or MELD score is >= 21 is greater than or equal to 21, the patient would be considered for steroid treatment, provided no contraindications exist. Based on the assumed control PT, the MDF is 29.72, which is slightly below the threshold for severe disease. However, the patient's clinical presentation (marked jaundice, malaise, lab values) is significant. Given the MELD score is often a better predictor of 30-day survival, this should also be calculated. Creatinine = 0.75 Bilirubin = 10 INR = 1.2 Sodium = 128 MELD = 22 A MELD score of 22 points carries a estimated 19.63% 3-month mortality. Plan * Supportive Care: Continue supportive care, including nutritional support and management of alcohol withdrawal (likely needs inpatient medical detox). * Infection Workup: Complete a full workup for infection (cultures are essential given the elevated WBC and left shift). * Severity Assessment: Calculate the formal MELD score and potentially the Todd Alcoholic Hepatitis Score (GAHS) to further determine disease severity. Age 44 White blood cell count = 12 BUN = 10 Bilirubin = 10 PT = 13 PT lab normal = 11-13 GAHS = 7 points [facility] alcoholic hepatitis score of less than 9 portend a much better 28 to 84-day mortality survival then scores above 9 can indicate a or survival rate. * Steroid Decision: The decision to use steroids depends on the severity scores (if MDF >=32is greater than or equal to 32 or MELD >=21is greater than or equal to 21) and confirmation of no active infection or other contraindications (e.g., renal failure, GI bleeding). * If steroids are initiated (e.g., prednisolone 40 mg daily for 28 days), the patient should be monitored closely, and the Lille score should be calculated at day 7 to assess response. * If contraindications exist or the patient is a non-responder to steroids, alternative therapies like pentoxifylline could be considered, though evidence is conflicting. * I do not see any indication for steroids at this time * Abstinence: Emphasize the importance of long-term alcohol abstinence for survival and refer to an alcohol treatment program. * Monitoring: Monitor liver function, electrolytes (especially K, Na), renal function, and signs of infection closely. Replete potassium immediately. 04/07/2025 * Labs: * Hemoglobin (Hgb): Decreased from 10.3 to 9.7 g/dL (down 0.6). * INR: Stable at 1.2. * PTT: Stable at 15.4 seconds. * Sodium (Na): Increased from 130 to 132 mmol/L. * Potassium (K): Increased from 2.1 to 2.3 mmol/L. * Total Bilirubin: Decreased from 9 to 6.4 mg/dL. * AST: Decreased to 216 U/L (previously severely elevated). * ALT: Decreased to 51 U/L (previously severely elevated). * Alkaline Phosphatase (Alk Phos): Decreased to 319 U/L (previously severely elevated). 04/08/2025 The patient's clinical picture is improving overall. His subjective symptoms are better, and his liver function tests (LFTs) have significantly improved, supporting a positive response to treatment for presumed acute alcoholic hepatitis. * Acute Alcoholic Hepatitis: Improving as evidenced by better LFTs and clinical status. Bilirubin is down. * Anemia: Hemoglobin decreased slightly to 9.7 g/dL. This is mild and could be related to underlying chronic disease or nutritional deficiencies common in alcohol abuse. Requires monitoring. * Electrolyte Abnormalities: Sodium and potassium levels are improving with treatment, moving towards normal range. Continued management is necessary. * Coagulopathy: INR and PTT remain stable and only mildly elevated/normal, which is a positive sign in the context of liver dysfunction. P * Continue current management plan for acute alcoholic hepatitis, including supportive care and nutritional support. * Continue repletion of sodium and potassium with close monitoring of levels. * Monitor hemoglobin levels closely; if the downward trend continues or becomes more significant, consider further workup for the cause (e.g., GI bleed, nutritional deficiency). * Monitor liver function tests and clinical status daily to ensure continued improvement. * Continue to encourage oral intake as tolerated. * Physical therapy consult for deconditioning secondary to fatigue and weakness as patient improves clinically. The patient is currently stable and improving clinically, tolerating a diet with mild, manageable pain. He remains on day #4 of treatment for acute alcoholic hepatitis. The intermittent fever and tachycardia warrant continued monitoring and investigation for potential underlying infection or ongoing inflammatory response related to the hepatitis. * Vigilant Infection Monitoring: Fever and tachycardia are hallmarks of both alcoholic hepatitis itself and systemic infection, which is a leading cause of mortality in these patients. The clinical team must maintain a high suspicion for active infection (e.g., spontaneous bacterial peritonitis, urinary tract infection, pneumonia, C. difficile colitis) and conduct a vigilant search, including appropriate cultures and diagnostic paracentesis if ascites is present. Empiric broad-spectrum antibiotics may be considered while awaiting culture results if an infection is suspected. * Nutritional Support: The patient tolerating a diet is a good sign. The goal is to provide adequate nutrition to address the common severe malnutrition asso ciated with the disease. * Alcohol Withdrawal Management: The patient should continue to be monitored and treated for alcohol withdrawal with benzodiazepines via a structured protocol (e.g., GREGORWA-Ar) if needed, using the minimum effective dose to avoid exacerbating hepatic encephalopathy. * Specific Therapies (if severe): If the patient's case is classified as severe (Maddrey's Discriminant Function score >=32 or MELD score >=21), they would typically have been started on specific therapy like corticosteroids or pentoxifylline upon admission, provided there were no contraindications (e.g., active infection). On day 4, the clinical team may assess for an early response to therapy, although the formal Lille score is usually calculated on day 7 to determine if the treatment should continue or be stopped. * Supportive Care: This includes continued abstinence counseling, IV fluids with vitamin and mineral supplementation (thiamine, folate, multivitamins, etc.), and avoiding hepatotoxic or nephrotoxic medications. * Abdominal Pain Management: The mild abdominal pain (2/10) should be managed with appropriate, non-hepatotoxic analgesics. Given the potential for complications like pancreatitis, a thorough assessment for the cause of the pain is important P * Continue current management for acute alcoholic hepatitis. * Monitor vital signs closely for resolution of tachycardia and fevers. * Administer antipyretics and pain management as needed for fever and mild abdominal discomfort. * Continue monitoring lab values (e.g., liver function tests, complete blood count, inflammatory markers) to track disease progression and response to therapy. * Investigate potential sources of infection with fevers persist, including possible blood cultures and further diagnostics as indicated by clinical picture. * Continue current dietary regimen. * Patient education on the importance of alcohol cessation and long-term management of alcoholic liver disease. 04/09/2025 Assessment * Severe alcoholic hepatitis: Stable condition on day 4 of admission. Patient remains afebrile. * Tachycardia: Persistent despite being afebrile, potentially related to alcohol withdrawal, volume status, or underlying cardiac issues. Needs continued monitoring and workup if cause is unclear. * Alcohol Withdrawal Syndrome: Managed by CIWA protocol, appears stable. * Electrolyte Imbalances: Managed with supplemental magnesium, phosphate, and po tassium. * Nutrition: Tolerating diet well. * Gastrointestinal: Loose stools have resolved. Plan * Continue current management: * Continue CIWA protocol with appropriate monitoring and medication administration. * Continue supplemental electrolytes (magnesium, phosphate, potassium) as per protocol and lab results. * Continue diet as tolerated. * Monitoring: * Strictly monitor vital signs, with particular attention to persistent tachycardia; consider further workup (e.g., EKG, cardiac enzymes, volume status assessment) if indicated. * Monitor ins and outs and stool frequency/consistency. * Monitor labs: Daily BMP, LFTs, CBC, and electrolyte levels to guide supplementation and assess disease progression/stability * Consider Cardiology consult if tachycardia cause remains unclear or problematic. I suspect that this is all from alcohol withdrawal. * Patient Education: Continue education on the importance of alcohol cessation and potential for long-term complications and treatment options (e.g., liver transplant referral criteria). * Disposition: Continue inpatient management and observation; reassess daily for clinical improvement or deterioration. Visit Charges Inpatient E&M: 14649 Subs Hosp L3
[2025-04-09 18:23] VITALS: BP 100/56; PULSE 109; RESP 16; TEMP 37.4; O2SAT 96
[2025-04-09 19:00] VITALS: PULSE 104
[2025-04-09 21:28] VITALS: BP 105/76; PULSE 86; RESP 14; TEMP 36.8; O2SAT 98
[2025-04-10 01:22] LABS: Prothrombin Time (Protime)PT. 17.4 SECONDS (11.7-14.9)
[2025-04-10 03:00] VITALS: PULSE 85
[2025-04-10 03:40] VITALS: BP 115/75; PULSE 99; RESP 17; TEMP 36.7; O2SAT 97
[2025-04-10 06:00] VITALS: BMI 28.1
[2025-04-10] MEDS: Piperacil/Tazobactam 3.375 GM in 0.9% Normal Saline (50mL MB+) 50 ML IV ×3 (06:35→23:05)
[2025-04-10 07:34] LABS: Hematocrit 26.4 % (40-54); Hemoglobin 9.3 g/dL (13.0-16.5); Immature Granulocytes Count 0.410 X10^3/uL (0.0-0.0); Mean Corp Hgb Conc 35.2 g/dL (32-36); Mean Corpuscular Volume 95.0 fL (80-94); Mean Platelet Vol. 10.6 fl (6.2-12.0); NRBC Flagged by Analyzer 0 % (0-5); Platelet Count 162 K/mm3 (150-450); RBC Distribution Width CV 15.9 % (11.6-14.6); RBC Distribution Width SD 55.2 fl (35.1-43.9); Red Blood Count 2.78 M/mm3 (4.6-6.2); White Blood Count 14.1 K/mm3 (4.4-11.0)
[2025-04-10 08:05] LABS: AST(SGOT) 132 U/L (<=37); Alanine Aminotransfer ALT/SGPT 45 U/L (<=46); Albumin, Serum 2.5 g/dL (3.5-5.0); Alkaline Phosphatase 313 U/L (40-129); Anion Gap 9 (5-15); BUN 13 mg/dL (4-19); BUN/Creat Ratio 13.8 RATIO (10-20); Calcium,Total 7.8 mg/dL (7.6-11.0); Carbon Dioxide 26.4 mmol/L (21.0-32.0); Chloride 100 mmol/L (98-108); Estimated Creatinine Clearance 114.51 ml/min (50-250); Globulin 2.7 g/dL (2.2-4.2); Glucose 100 mg/dL (70-99); Potassium 3.0 mmol/L (3.3-5.1)
--- NOTE | 2025-04-10 08:26 | CT_ITS ---
PROCEDURE: ABDOMEN/PELVIS WITHOUT CONT N/A REASON FOR EXAM: DISTENDED ABDOMEN Jaundice. Nausea and vomiting. TECHNIQUE: Procedure Code: CTABDPEL Modality: CT Procedure: ABDOMEN/PELVIS WITHOUT CONT Noncontrast technique limits evaluation of the abdominal and pelvic viscera. Coronal and Sagittal reconstruction series were provided. One or more dose reduction techniques were used (e.g., Automated exposure control, adjustment of the mA and/or kV according to patient size, use of iterative reconstruction technique). RADIATION DOSE SUMMARY: CTDlvol: 13.16 mGy DLP: 819.07 mGycm COMPARISON: April 05, 2025. FINDINGS: Lung bases: There now is evidence for small bilateral pleural effusion with bibasilar atelectasis and/or early infiltrate worse on the left side. Focal airspace disease is seen along the anterior aspect of the left lower lobe. Liver: Hepatomegaly. Small amount of perihepatic fluid. Gallbladder: The gallbladder is contracted. There is evidence of gallbladder wall thickening and possible small amount of pericholecystic fluid. Spleen: The spleen measures upper limits of normal. Pancreas: Normal size. No surrounding inflammation. Ascites. Increased markings within the mesenteric fat in the root of the mesentery. This may be related due to the presence of ascites. Adrenals: Unremarkable Kidneys: Bilateral nonspecific perinephric stranding. No evidence of hydronephrosis. No renal calculus is seen. Bladder: Unremarkable Bowel: Nonspecific bowel gas pattern. Appendix: The appendix is not identified. There is no inflammatory process identified in the right lower quadrant to suggest appendicitis. Lymph nodes: Unremarkable. Vasculature: Mild diffuse atherosclerotic calcifications are noted. Peritoneum / Retroperitoneum: Ascites Bones: Degenerative changes of the spine. CT/Abdomen/Pelvis without Cont IMPRESSION: Bilateral pleural effusions with bibasilar atelectasis slightly worse on the le ft side. Ascites. Hepatomegaly and borderline splenomegaly. The gallbladder is contracted with evidence of small amount of pericholecystic fluid and gallbladder wall thickening. Reading Location: [place] [id number]
[2025-04-10 08:42] VITALS: BP 131/86; PULSE 102; RESP 18; TEMP 37.3; O2SAT 97
[2025-04-10] MEDS: Thiamine Hydrochloride 100 MG Tablet PO (08:47)
[2025-04-10] MEDS: Ensure Plus High Protein 120 ML LIQUID PO (08:47)
[2025-04-10] MEDS: Nicotine (PBKC) 21 MG Patch TD (08:47)
[2025-04-10] MEDS: Potassium Chloride 10mEq/100mL 10 MEQ/100 ML IV.SOLN. 100 MEQ IV BOLUS ×8 (09:29→21:47)
[2025-04-10 11:46] VITALS: TEMP 36.8
--- NOTE | 2025-04-10 12:50 | PCM.PROGNOTE ---
Subjective Subjective Patient seen and examined with his nurse by his bedside. He was lying in bed comfortably and had no complaints. His abdomen does seem to be a bit more distended today. Review of systems is otherwise negative. WBC is 14.1 today hemoglobin is 9.3. Platelets are 162. Potassium today is 3. Objective Data Objective Data Vital Signs: Vital Signs Temp Pulse Resp BP Pulse Ox O2 Del Method 98.3 F 102 H 18 131/86 H 97 Room Air 04/10/25 11:46 04/10/25 08:42 04/10/25 08:42 04/10/25 08:42 04/10/25 08:42 04/10/25 09:43 Oxygen Delivery Method Room Air Weight: 207 lb 7.28 oz Body Mass Index (BMI) 28.1 Intake & Output: Intake and Output for Last 24 Hours 04/08/25 04/09/25 04/10/25 23:59 23:59 23:59 Intake Total 1238.98 / 1238.98 2094.63 / 2094.63 730 / 730 Balance 1238.98 / 1238.98 2094.63 / 2094.63 730 / 730 Lab / Micro Data 04/10/25 07:15 04/10/25 07:15 Labs: Laboratory Results - last 24 hr 04/09/25 13:10: PT 16.6 H, INR 1.3 04/10/25 01:00: PT 17.4 H, INR 1.4 04/10/25 07:15: WBC 14.1 H, RBC 2.78 L, Hgb 9.3 L, Hct 26.4 L, MCV 95.0 H, MCH 33.5 H, MCHC 35.2, RDW Std Deviation 55.2 H, RDW Coeff of Marco A 15.9 H, Plt Count 162, MPV 10.6, Immature Gran % (Auto) 2.900 H, Neut % (Auto) 81.5 H, Lymph % (Auto) 7.5 L, [place] % (Auto) 6.6, Eos % (Auto) 1.1, Baso % (Auto) 0.4, Absolute Neuts (auto) 11.5 H, Absolute Lymphs (auto) 1.06, Nucleated RBC % 0, Sodium 135, Potassium 3.0 L, Chloride 100, Carbon Dioxide 26.4, Anion Gap 9, BUN 13, Creatinine 0.96, Estim Creat Clear Calc 114.51, Est GFR (MDRD) Non-Af 99, BUN/Creatinine Ratio 13.8, Glucose 100 H, Calcium 7.8, Total Bilirubin 4.60 H, AST 132 H, ALT 45, Alkaline Phosphatase 313 H, Total Protein 5.2 L, Albumin 2.5 L, Globulin 2.7, Albumin/Globulin Ratio 0.9 Micro: Microbiology 04/06/25 05:50 Blood Culture (Wb) - Right Forearm Blood Culture - Preliminary No growth in 48 hours. 04/06/25 05:45 Blood Culture (Wb) - Anticubital Right Blood Culture - Preliminary No growth in 48 hours. Radiography Diagnostic Testing: Radiology Impression Abdomen/Pelvis CT 04/10/25 08:26 IMPRESSION: Bilateral pleural effusions with bibasilar atelectasis slightly worse on the left side. Ascites. Hepatomegaly and borderline splenomegaly. The gallbladder is contracted with evidence of small amount of pericholecystic fluid and gallbladder wall thickening. Reading Location: [facility]- Physical Exam Const alert, oriented x3, no apparent distress and average body habitus Constitutional Narrative: jaundice is improving. General Appearance: cooperative HEENT normocephalic, head/scalp atraumatic, hearing grossly normal bilaterally and moist oral mucous membranes Eyes EOMs intact bilaterally; Negative for conjunctivae normal Eyes Narrative: Scleral icterus is present Neck supple and no JVD Neck Narrative: Trachea midline Lymph Lymphatic: no lymphedema noted Resp normal respiratory effort, normal air movement, no retractions, no use of accessory muscles and clear to auscultation bilaterally Resp Narrative: Diffusely diminished but clear Auscultation: Negative for rales, rhonchi or wheezes Cardio regular rate, regular rhythm, S1 normal heart sound, S2 normal heart sound and no murmurs Cardio Narrative: tachycardic. HR is 102. GI normal to inspection, nondistended, normoactive bowel sounds, soft to palpation and non-tender GI Narrative: palpable nontender hepatomegaly, which is resolving.no palpable splenomegaly abdomen moderately distended. Positive fluid thrill. Extremity normal capillary refill, no clubbing, cyanosis or edema and no calf tenderness Extremity Narrative: Pedal and radial pulses are 2+ General Extremity: no tenderness to palpation of joints or extremities Skin Skin Narrative: skin deeply jaundiced, though jaundice is improving General Skin Exam: no breakdown Neuro oriented x3, CN's II-XII intact bilaterally, moves all extremities, no focal motor deficits and no sensory deficits noted Speech: speech normal Motor Exam: strength 5/5 throughout Psych thought process normal, cooperative and affect normal Appearance: appropriate Assessment & Plan Assessment/Plan (1) Acute hepatitis: (2) Alcohol dependence: PLAN: Plan #Acute hepatitis, likely alcoholic hepatitis Patient admitted with a complaint of jaundice and generalized malaise. He has a history of significant chronic alcohol intake. He drinks about a liter and a half of rum daily. Total bilirubin was elevated at 10.4 on admission and continues to trend downwards. Total bilirubin is further down to 5.33 today. It is mainly a direct hyperbilirubinemia. AST and ALT as well as ALP have risen up slightly today. LDH was checked and was elevated at 347. Haptoglobin is within normal limits at 260. Urinalysis did show microhematuria but this has been present since November 2024. On admission there was concern about possible TTP in light of the elevated bilirubin and concern for hemolysis in light of the microhematuria. However the patient's clinical picture does not fit this. He has a history of chronic alcohol use. His platelets were 141 which whilst lower is not critically low as in TTP levels. Platelets were 163 on admission on 04/05/2025. Additionally he does have a clear picture of chronic alcohol abuse and so alcoholic hepatitis fits the picture better. The hyperbilirubinemia is also more of a direct bilirubinemia and not an indirect bilirubinemia which would be what you would see if it was mainly due to hemolysis. I also spoke to the lab who reviewed the peripheral smear and there were no schistocytes present. Gastroenterology therefore consulted as some concern this is likely due to acute alcoholic hepatitis. HIV and hepatitis serologyall negative vancomycin dc'd. Complete a 5 day course of zosyn. blood cultures negative #Ascites likely due to acute alcoholic hepatitis Patient's abdomen more distended today with positive fluid thrill. CT of the abdomen and pelvis therefore done today showed bilateral effusions with bibasilar atelectasis slightly worse on the left side with ascites and hepatomegaly as well as borderline splenomegaly Will order diagnostic paracentesis but this likely due to the acute alcoholic hepatitis. #Anemia: Hemoglobin today is 9.3. LDH was elevated but haptoglobin is normal and reticulocyte count is elevated at 2.89%. Will monitor closely. #Hypokalemia: Replace aggressively and monitor. Potassium is 3 today. magnesium WNL #Leukocytosis: WBC was 17 on admission and is now down to 14.1 today; Procalcitonin was elevated. Blood cultures are negative after 48 hours. Will complete a 5 day course of antibiotics as a precaution. #Hyponatremia: This is likely related to the alcoholic hepatitis. sodium is 135 today. #Alcohol use disorder Patient at risk for withdrawal. 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 On thiamine and folic acid. On phenobarb taper and CIWA protocol. # Nicotine dependence: Counseled to quit. Nicotine patch as needed DVT prophylaxis: SCDs. Code status: full code Charges/Coding Visit Charges Inpatient E&M: 94749 Subs Hosp L2
[2025-04-10 14:50] VITALS: BP 110/64; PULSE 107; RESP 18; TEMP 36.9; O2SAT 98
[2025-04-10 15:34] LABS: Prothrombin Time (Protime)PT. 16.4 SECONDS (11.7-14.9)
[2025-04-10 16:26] LABS: Potassium 3.2 mmol/L (3.3-5.1)
--- NOTE | 2025-04-10 18:06 | PN_ITS ---
Progress Note The patient is a 44-year-old male on hospital day #5 for acute alcoholic hepatitis, reporting increased abdominal distension, bloating, and some abdomi nal tenderness. He denies any fevers. A diagnostic and therapeutic paracentesis has been ordered. Physical Exam Const alert, oriented x3, no apparent distress and healthy appearing General Appearance: cooperative GI normal to inspection, nondistended, normoactive bowel sounds, soft to palpation, non-tender and non-distended Percussion: normal to percussion Rectal Exam: deferred Assessment & Plan Assessment/Plan (1) Acute hepatitis: (2) Alcohol dependence: (3) Transaminitis: (4) Direct hyperbilirubinemia: (5) Acute alcoholic hepatitis: (6) Hyponatremia: (7) Hypochloremia: (8) Hypokalemia: (9) Jaundice: PLAN: The patient presents with signs and symptoms consistent with acute alcoholic hepatitis. The elevated white blood cell count with a left shift warrants a thorough workup for infection (e.g., blood cultures, chest X-ray, ascitic fluid tap if ascites is present), which is a goldstein contraindication for steroids. He does not have ascites at this time. The elevated bilirubin and INR suggest significant liver dysfunction. To assess these: * Lioey Discriminant Function (MDF): Requires a control PT value to calculate. Assuming a common control PT of 11 seconds: MDF = 4.6 * (Patient PT - Control PT) + Total Bilirubin MDF = 4.6 * (15.2 - 11) + 10.4 MDF = 4.6 * 4.2 + 10.4 MDF = 19.32 + 10.4 MDF = 29.72 * MELD Score: Requires INR, creatinine, and total bilirubin. MELD score can be calculated, and a score over 21 also indicates severe disease. If the MDF is >= 32 is greater than or equal to 32 or MELD score is >= 21 is greater than or equal to 21, the patient would be considered for steroid treatment, provided no contraindications exist. Based on the assumed control PT, the MDF is 29.72, which is slightly below the threshold for severe disease. However, the patient's clinical presentation (marked jaundice, malaise, lab values) is significant. Given the MELD score is often a better predictor of 30-day survival, this should also be calculated. Creatinine = 0.75 Bilirubin = 10 INR = 1.2 Sodium = 128 MELD = 22 A MELD score of 22 points carries a estimated 19.63% 3-month mortality. Plan * Supportive Care: Continue supportive care, including nutritional support and management of alcohol withdrawal (likely needs inpatient medical detox). * Infection Workup: Complete a full workup for infection (cultures are essential given the elevated WBC and left shift). * Severity Assessment: Calculate the formal MELD score and potentially the [place] Alcoholic Hepatitis Score (GAHS) to further determine disease severity. Age 44 White blood cell count = 12 BUN = 10 Bilirubin = 10 PT = 13 PT lab normal = 11-13 GAHS = 7 points [facility] alcoholic hepatitis score of less than 9 portend a much better 28 to 84-day mortality survival then scores above 9 can indicate a or survival rate. * Steroid Decision: The decision to use steroids depends on the severity scores (if MDF >=32is greater than or equal to 32 or MELD >=21is greater than or equal to 21) and confirmation of no active infection or other contraindications (e.g., renal failure, GI bleeding). * If steroids are initiated (e.g., prednisolone 40 mg daily for 28 days), the patient should be monitored closely, and the Lille score should be calculated at day 7 to assess response. * If contraindications exist or the patient is a non-responder to steroids, alternative therapies like pentoxifylline could be considered, though evidence is conflicting. * I do not see any indication for steroids at this time * Abstinence: Emphasize the importance of long-term alcohol abstinence for survival and refer to an alcohol treatment program. * Monitoring: Monitor liver function, electrolytes (especially K, Na), renal function, and signs of infection closely. Replete potassium immediately. 04/07/2025 * Labs: * Hemoglobin (Hgb): Decreased from 10.3 to 9.7 g/dL (down 0.6). * INR: Stable at 1.2. * PTT: Stable at 15.4 seconds. * Sodium (Na): Increased from 130 to 132 mmol/L. * Potassium (K): Increased from 2.1 to 2.3 mmol/L. * Total Bilirubin: Decreased from 9 to 6.4 mg/dL. * AST: Decreased to 216 U/L (previously severely elevated). * ALT: Decreased to 51 U/L (previously severely elevated). * Alkaline Phosphatase (Alk Phos): Decreased to 319 U/L (previously severely elevated). 04/08/2025 The patient's clinical picture is improving overall. His subjective symptoms are better, and his liver function tests (LFTs) have significantly improved, supporting a positive response to treatment for presumed acute alcoholic hepatitis. * Acute Alcoholic Hepatitis: Improving as evidenced by better LFTs and clinical status. Bilirubin is down. * Anemia: Hemoglobin decreased slightly to 9.7 g/dL. This is mild and could be related to underlying chronic disease or nutritional deficiencies common in alcohol abuse. Requires monitoring. * Electrolyte Abnormalities: Sodium and potassium levels are improving with treatment, moving towards normal range. Continued management is necessary. * Coagulopathy: INR and PTT remain stable and only mildly elevated/normal, which is a positive sign in the context of liver dysfunction. P * Continue current management plan for acute alcoholic hepatitis, including supportive care and nutritional support. * Continue repletion of sodium and potassium with close monitoring of levels. * Monitor hemoglobin levels closely; if the downward trend continues or becomes more significant, consider further workup for the cause (e.g., GI bleed, nutritional deficiency). * Monitor liver function tests and clinical status daily to ensure continued improvement. * Continue to encourage oral intake as tolerated. * Physical therapy consult for deconditioning secondary to fatigue and weakness as patient improves clinically. The patient is currently stable and improving clinically, tolerating a diet with mild, manageable pain. He remains on day #4 of treatment for acute alcoholic hepatitis. The intermittent fever and tachycardia warrant continued monitoring and investigation for potential underlying infection or ongoing inflammatory response related to the hepatitis. * Vigilant Infection Monitoring: Fever and tachycardia are hallmarks of both alcoholic hepatitis itself and systemic infection, which is a leading cause of mortality in these patients. The clinical team must maintain a high suspicion for active infection (e.g., spontaneous bacterial peritonitis, urinary tract infection, pneumonia, C. difficile colitis) and conduct a vigilant search, including appropriate cultures and diagnostic paracentesis if ascites is present. Empiric broad-spectrum antibiotics may be considered while awaiting culture results if an infection is suspected. * Nutritional Support: The patient tolerating a diet is a good sign. The goal is to provide adequate nutrition to address the common severe malnutrition associated with the disease. * Alcohol Withdrawal Management: The patient should continue to be monitored and treated for alcohol withdrawal with benzodiazepines via a structured protocol (e.g., CIWA-Ar) if needed, using the minimum effective dose to avoid exacerbating hepatic encephalopathy. * Specific Therapies (if severe): If the patient's case is classified as severe (Maddrey's Discriminant Function score >=32 or MELD score >=21), they would typically have been started on specific therapy like corticosteroids or pentoxifylline upon admission, provided there were no contraindications (e.g., active infection). On day 4, the clinical team may assess for an early response to therapy, although the formal Lille score is usually calculated on day 7 to determine if the treatment should continue or be stopped. * Supportive Care: This includes continued abstinence counseling, IV fluids with vitamin and mineral supplementation (thiamine, folate, multivitamins, etc.), and avoiding hepatotoxic or nephrotoxic medications. * Abdominal Pain Management: The mild abdominal pain (2/10) should be managed with appropriate, non-hepatotoxic analgesics. Given the potential for complications like pancreatitis, a thorough assessment for the cause of the pain is important P * Continue current management for acute alcoholic hepatitis. * Monitor vital signs closely for resolution of tachycardia and fevers. * Administer antipyretics and pain management as needed for fever and mild abdominal discomfort. * Continue monitoring lab values (e.g., liver function tests, complete blood count, inflammatory markers) to track disease progression and response to therapy. * Investigate potential sources of infection with fevers persist, including possible blood cultures and further diagnostics as indicated by clinical picture. * Continue current dietary regimen. * Patient education on the importance of alcohol cessation and long-term management of alcoholic liver disease. 04/09/2025 Assessment * Severe alcoholic hepatitis: Stable condition on day 4 of admission. Patient remains afebrile. * Tachycardia: Persistent despite being afebrile, potentially related to alcohol withdrawal, volume status, or underlying cardiac issues. Needs continued monitoring and workup if cause is unclear. * Alcohol Withdrawal Syndrome: Managed by CIWA protocol, appears stable. * Electrolyte Imbalances: Managed with supplemental magnesium, phosphate, and potassium. * Nutrition: Tolerating diet well. * Gastrointestinal: Loose stools have resolved. Plan * Continue current management: * Continue CIWA protocol with appropriate monitoring and medication administration. * Continue supplemental electrolytes (magnesium, phosphate, potassium) as per protocol and lab results. * Continue diet as tolerated. * Monitoring: * Strictly monitor vital signs, with particular attention to persistent tachycardia; consider further workup (e.g., EKG, cardiac enzymes, volume status assessment) if indicated. * Monitor ins and outs and stool frequency/consistency. * Monitor labs: Daily BMP, LFTs, CBC, and electrolyte levels to guide supplementation and assess disease progression/stability * Consider Cardiology consult if tachycardia cause remains unclear or problematic. I suspect that this is all from alcohol withdrawal. * Patient Education: Continue education on the importance of alcohol cessation and potential for long-term complications and treatment options (e.g., liver transplant referral criteria). * Disposition: Continue inpatient management and observation; reassess daily for clinical improvement or deterioration. 04/10/2025 The patient's clinical presentation is consistent with worsening ascites, likely secondary to acute alcoholic hepatitis. The increasing abdominal distension, bloating, and tenderness, in the absence of fever, suggest uncomplicated ascites but the possibility of spontaneous bacterial peritonitis (SBP) cannot be entirely ruled out without further analysis. The ordered paracentesis is appropriate for both diagnosis (to rule out SBP and identify fluid c haracteristics) and therapy (to relieve pressure and discomfort). The patient's age and history of alcoholic hepatitis place him at high risk for complications of liver disease.P * Diagnostics: * Proceed with ordered diagnostic and therapeutic paracentesis. Send ascitic fluid for cell count and differential, albumin, total protein, Gram stain, and culture. * Therapeutics: * Continue current supportive care for acute alcoholic hepatitis. * Administer therapeutic paracentesis for symptomatic relief of abdominal distension/bloating. * Monitoring: * Closely monitor vital signs (especially for signs of infection or hemodynamic instability post-procedure). * Monitor input and output (I/Os) and daily weights to manage fluid balance. * Monitor lab results, particularly ascitic fluid analysis. Visit Charges Inpatient E&M: 12825 [facility] L3
[2025-04-10 20:30] VITALS: BP 113/73; PULSE 100; RESP 18; TEMP 36.4; O2SAT 95
[2025-04-10] MEDS: 0.9% Saline Lock 10 ML Syringe IV (23:06)
[2025-04-11] VITALS (7 sets, daily range): BP systolic 91–115; BP diastolic 52–81; PULSE 95–112; RESP 18–20; TEMP 36.6–37.2; O2SAT 96–98; BMI 29.0
[2025-04-11 04:59] LABS: Hematocrit 24.3 % (40-54); Hemoglobin 8.1 g/dL (13.0-16.5); Immature Granulocytes Count 0.230 X10^3/uL (0.0-0.0); Mean Corp Hgb Conc 33.3 g/dL (32-36); Mean Corpuscular Volume 95.7 fL (80-94); Mean Platelet Vol. 11.4 fl (6.2-12.0); NRBC Flagged by Analyzer 0 % (0-5); Platelet Count 189 K/mm3 (150-450); RBC Distribution Width CV 16.1 % (11.6-14.6); RBC Distribution Width SD 56.5 fl (35.1-43.9); Red Blood Count 2.54 M/mm3 (4.6-6.2); White Blood Count 12.2 K/mm3 (4.4-11.0)
[2025-04-11 05:37] LABS: AST(SGOT) 128 U/L (<=37); Alanine Aminotransfer ALT/SGPT 44 U/L (<=46); Albumin, Serum 2.4 g/dL (3.5-5.0); Alkaline Phosphatase 326 U/L (40-129); Anion Gap 11 (5-15); BUN 14 mg/dL (4-19); BUN/Creat Ratio 14.3 RATIO (10-20); Calcium,Total 7.7 mg/dL (7.6-11.0); Carbon Dioxide 22.1 mmol/L (21.0-32.0); Chloride 101 mmol/L (98-108); Estimated Creatinine Clearance 113.72 ml/min (50-250); Globulin 2.6 g/dL (2.2-4.2); Glucose 133 mg/dL (70-99); Potassium 3.1 mmol/L (3.3-5.1)
[2025-04-11 05:51] LABS: Prothrombin Time (Protime)PT. 16.9 SECONDS (11.7-14.9)
[2025-04-11] MEDS: Piperacil/Tazobactam 3.375 GM in 0.9% Normal Saline (50mL MB+) 50 ML IV ×2 (05:51→14:29)
[2025-04-11] MEDS: 0.9% Saline Lock 10 ML Syringe IV (05:51)
--- NOTE | 2025-04-11 08:00 | US_ITS ---
PROCEDURE: PARACENTESIS WITH US N/A REASON FOR EXAM: ASCITES TECHNIQUE: PARACENTESIS WITH US. The procedure as well as the benefits and possible complications including infection and bleeding were explained to the patient. Informed consent was obtained. The overlying skin was prepped and draped in the usual sterile fashion. Under direct sonographic guidance, a 5 Micronesian drainage catheter was placed into the right lower quadrant. 1800 mL of magaly colored fluid was aspirated. A 100 mL sample was sent to the laboratory. COMPARISON: Prior CT scan of the abdomen and pelvis dated April 10, 2025. FINDINGS: Successful ultrasound-guided paracentesis. US/Paracentesis with US IMPRESSION: Successful ultrasound-guided paracentesis. The patient tolerated the procedure well. Reading Location: [place] [id number]
[2025-04-11] MEDS: Nicotine (PBKC) 21 MG Patch TD (08:37)
[2025-04-11] MEDS: Thiamine Hydrochloride 100 MG Tablet PO (08:37)
[2025-04-11] MEDS: Potassium Chloride Oral Tablet 20 MEQ 40 MEQ PO (08:37)
--- NOTE | 2025-04-11 09:00 | FLU_PTH ---
PATIENT: ANNA STEPHEN II LOC: [facility] U#:[id number] AGE/SX: 44/M ROOM: [facility] RE04/06/[address]: Dr. Judi Souza MD : 1980 BED: 1 DIS: 04/11/2025 SPEC #: [id number] RECD: 04/11/25 09:24 STATUS: SOUChristian REQ #: [id number] JAYSON: 04/11/25 09:[address]: Judi Souza DEPT: CYTOLOGY RECD BY: Clovis Ignacio ENTERED: 04/11/25 13:17 SP TYPE: Fluid OTHR DR: Dr. Jagruti Barrientos, DO MD Dr. Diony Haddad, DO No Primary Care Phys Nicolette Marrero NP-C Ana Barney ELECTRICAL & INSTRUMENTATION SUPERVISOR-C RANJEET Ibarra Tissues: A - PARACENTESIS FLUID Procedures: Special Stain Group II Surgery Specimen Level IV Cytospin Fluid HEADER OPERATION: Paracentesis PRE-OP DIAGNOSIS: Ascites TISSUE SUBMITTED: A- Paracentesis fluid for cytology DIAGNOSIS CYTOLOGY A. Ascites, paracentesis (cytospin, cellblock): - No malignant cells identified. CYTOLOGY STUDY Slides are reviewed. CYTOLOGY GROSS A. Received is 85 ml of yellow-cloudy fluid labeled with the patient's name and and designated per the requisition as "Paracentesis fluid." Submitted for cytology and cell block preparation. 04/11/2025 CPT: 98342,30396
[2025-04-11] MEDS: Lidocaine 2% (20 ml mdv) 20 ML Vial INFILT (09:05)
[2025-04-11] MEDS: Potassium Chloride 10mEq/100mL 10 MEQ/100 ML IV.SOLN. 100 MEQ IV BOLUS ×4 (09:49→12:57)
--- NOTE | 2025-04-11 10:35 | CASEMGMT ---
KOFI STARKEY updated by hospitalist that patient will be discharging today and will need PCP and GI follow-up next week. Patient is not established with PCP. KOFI CM in to discuss needs at discharge, mother at bedside. KOFI STARKEY discussed PCP options and patient is agreeable to have appt made with Amee Sanchezroscoe Saba. Patient is independent in room and denies further needs. KOFI STARKEY updated Unit Sect[facility] to make PCP and GI appts for next week.
[2025-04-11 11:02] LABS: Body Fluid Mononuclear WBC # 0.106 10^3/uL; Body Fluid Mononuclear WBC % 76.3 %; Body Fluid Polynuclear WBC # 0.033 10^3/uL; Body Fluid Polynuclear WBC % 23.7 %; White Blood Count/Body Fluid 0.139 10^3/uL
[2025-04-11 11:26] LABS: Glucose, Body Fluid 118 mg/dL (Not Establ.)
[2025-04-11 11:39] LABS: Appearance/Body Fluid SL CLDY; Auto B Fluid Analyzer BKGD Ct COUNTS W/IN LIMITS (W/IN LIMITS); Color/Body Fluid YELLOW; Source- Body Fluid PARACENTESIS
[2025-04-11 11:41] LABS: Red Cell Count/Body Fluid 68 /mm3
[2025-04-11 12:01] LABS: Neutrophil (Segs) 20 %
[2025-04-11 12:02] LABS: Body Fluid QC Type(s) BF2Q
--- NOTE | 2025-04-11 12:10 | ECHOD_ITS ---
Reason For Study Reason For Study: ARRHYTHMIA Procedure This was a 2D Doppler, Color Flow transthoracic echocardiogram. The study was technically difficult. Exam performed portable in patient room. Left Ventricle Normal LV size. The left ventricular ejection fraction is 70 %. No regional wall motion abnormalities noted. Right Ventricle Normal RV size. Normal systolic function. Atria Normal left atrium. Normal right atrium. Mitral Valve Normal mitral valve. Tricuspid Valve Normal tricuspid valve. Aortic Valve Trisinus/trileaflet aortic valve. Pulmonic Valve Normal pulmonic valve. Great Vessels Normal aortic root. The pulmonary artery is normal size. Inferior vena cava collapse with respiration. Pericardium/Pleural No pericardial effusion. MMode/2D Measurements & Calculations LVIDd: 5.5 cm IVSd: 0.78 cm Ao root diam: 3.2 cm LVIDs: 3.2 cm LVPWd: 1.0 cm RVDd: 3.5 cm FS: 41.2 % LAV(MOD-bp): 52.2 ml LVAd ap4: 34.4 cm2 LVAd ap2: 33.2 cm2 LAV(MOD-bp) Indexed: 24.1 ml/m2 LVLd ap4: 8.8 cm LVLd ap2: 9.0 cm LAV(MOD-sp2): 56.1 ml EDV(MOD-sp4): 112.1 ml EDV(MOD-sp2): 100.7 ml LAV(MOD-sp4): 45.5 ml EDV(sp4-el): 114.6 ml EDV(sp2-el): 103.9 ml LVAs ap4: 17.3 cm2 LVAs ap2: 15.7 cm2 LVLs ap4: 7.4 cm LVLs ap2: 7.7 cm ESV(MOD-sp4): 34.3 ml ESV(MOD-sp2): 27.4 ml ESV(sp4-el): 34.3 ml ESV(sp2-el): 27.0 ml EF(MOD-sp4): 69.4 % EF(MOD-sp2): 72.8 % EF(sp4-el): 70.1 % SV(MOD-sp4): 77.8 ml SV(MOD-sp2): 73.3 ml SV(sp4-el): 80.4 ml SI(MOD-sp4): 36.0 ml/m2 SI(MOD-sp2): 33.9 ml/m2 LA A4 area: 16.5 cm2 LA dimension(2D): 4.0 cm RA A4 area: 12.8 cm2 TAPSE: 2.1 cm Time Measurements MV dec time: 0.16 sec Doppler Measurements & Calculations MV E max hunter: 139.4 cm/sec Lat Peak E' Hunter: 15.1 cm/sec Med Peak E' Hunter: 11.2 cm/sec MV A max hunter: 86.8 cm/sec E/E' lat: 9.2 E/E' med: 12.5 MV E/A: 1.6 MV V2 max: 137.0 cm/sec MV P1/2t max hunter: 132.7 cm/sec Ao V2 max: 154.0 cm/sec MV max P.5 mmHg MV P1/2t: 48.6 msec Ao max P.5 mmHg MV V2 mean: 84.4 cm/sec Ao V2 mean: 104.3 cm/sec MV mean P.1 mmHg MV dec slope: 799.6 cm/sec2 Ao mean P.9 mmHg MV V2 VTI: 27.8 cm MVA(P1/2t): 4.5 cm2 Ao V2 VTI: 24.6 cm AV (velocity ratio): 0.88 LV V1 max: 121.9 cm/sec PA V2 max: 142.8 cm/sec LV V1 max P.9 mmHg LV V1 mean P.9 mmHg LV V1 mean: 80.3 cm/sec LV V1 VTI: 21.6 cm ECHO/Echo Complete Interpretation Summary The left ventricular ejection fraction is 70 %. Normal LV size. Structurally normal valves. Ordering Physician: Judi Souza Referring Physician: NICOLAS PCP Performed By: Monica Quevedo, JODI, RVT
[2025-04-11 13:27] LABS: Magnesium 1.8 mg/dL (1.5-2.2)
[2025-04-11 15:19] LABS: Anion Gap 8 (5-15); BUN 14 mg/dL (4-19); BUN/Creat Ratio 13.3 RATIO (10-20); Calcium,Total 7.5 mg/dL (7.6-11.0); Carbon Dioxide 23.4 mmol/L (21.0-32.0); Chloride 100 mmol/L (98-108); Estimated Creatinine Clearance 105.13 ml/min (50-250); Glucose 109 mg/dL (70-99); Potassium 4.1 mmol/L (3.3-5.1)
--- NOTE | 2025-04-11 16:36 | PCM.DC ---
Discharge Instructions DC O2, CPAP, BIPAP needs Home O2 Discharge instructions: No Dressing / Incision Discharge Activity: Return to Normal Activity Weight Bearing Status: Weight bearing as tolerated Dressing / Incision Call your doctor if you observe: Fever of 101 or Higher, Shortness of breath and Swelling in the ankles Follow Up Care Test Results: Test results from this visit will be discussed in further detail at your follow-up appointment, if applicable. Discharge Plan Admission Admit Date/Time: 04/06/25 01:48 Primary Reason for Your Visit: acute alcoholic hepatitis Attending Provider: Judi Souza Primary Care Provider: Care Physician,No Primary Consulting Providers: Jagruti Barrientos; Stephane Garcia; Diony Houston; Nicolette Marrero; Ana Barney; Myrna Rosales Instructions Patient Instructions: RAD RN Paracentesis Dc Discharge Orders/Prescriptions Prescriptions: New furosemide [Lasix] 20 mg tablet 20 mg PO DAILY Qty: 30 2RF potassium chloride [K-Tab] 20 mEq tablet extended release 40 meq PO DAILY Qty: 60 1RF albuterol sulfate [Ventolin HFA] 90 mcg/actuation HFA aerosol inhaler 1 inh inhalation Q6H PRN (Reason: shortness of breath or wheezing) Qty: 8.5 1RF Discontinued albuterol sulfate [ProAir HFA] 1 PUFF inhaler 1 puff inhalation Q4H PRN PRN (Reason: Wheezing) Referrals / Follow Up: [facility] [Provider Group] - 04/12/25 11:00 am Referral Note: NEW PATIENT-PLEASE ARRIVE 15 MINUTES EARLY AND BRING A PHOTO ID AND INSURANCE CARD Diony Houston DO [Med Staff - Active Staff, Gastroenterology] - 04/16/25 12:30 pm Referral Note: APPOINTMENT WITH MYRNA Vogt Physician,No Primary [Primary Care Provider, Medical] Disposition Disposition (needs filled in before D/C Order can be placed): Home, Self Care
--- NOTE | 2025-04-11 16:38 | DS.PCM_ITS ---
Providers Date of Admission: 04/06/25 Date of Discharge: 04/11/25 Primary Care Physician: Polly Primary Care Phys Consultations 04/06/25 08:02 Consult: Gastroenterology Routine Consulting Provider: Carlos Gastroenterology Reason for Consult: hyperbilirubinemia, alcoholic hepatitis EMERGENT Consult: No MD Notified: Yes Date Notified: 04/06/25 Time Notified: 08:29 Method of Notification: Verbal Reason For Visit: SEVERE HYPOKALEMIA/TRANSAMINITIS/ Diagnosis Discharge Diagnosis (1) Acute hepatitis: Status: Acute Code(s): B17.9 - Acute viral hepatitis, unspecified (2) Alcohol dependence: Status: Acute Code(s): F10.20 - Alcohol dependence, uncomplicated (3) Transaminitis: Status: Acute Code(s): R74.01 - Elevation of levels of liver transaminase levels (4) Direct hyperbilirubinemia: Status: Acute Code(s): E80.6 - Other disorders of bilirubin metabolism (5) Acute alcoholic hepatitis: Status: Acute Code(s): K70.10 - Alcoholic hepatitis without ascites (6) Hyponatremia: Status: Acute Code(s): E87.1 - Hypo-osmolality and hyponatremia (7) Hypochloremia: Status: Acute Code(s): E87.8 - Other disorders of electrolyte and fluid balance, not elsewhere classified (8) Hypokalemia: Status: Acute Code(s): E87.6 - Hypokalemia (9) Jaundice: Status: Acute Code(s): R17 - Unspecified jaundice Plan #Acute hepatitis, likely alcoholic hepatitis * Patient admitted with a complaint of jaundice and generalized malaise. He has a history of significant chronic alcohol intake. He drinks about a liter and a half of rum daily. * Total bilirubin was elevated at 10.4 on admission and continues to trend downwards. Total bilirubin is further down to 5.33 today. It is mainly a direct hyperbilirubinemia. AST and ALT as well as ALP have risen up slightly today. * LDH was checked and was elevated at 347. Haptoglobin is within normal limits at 260. Urinalysis did show microhematuria but this has been present since November 2024. * On admission there was concern about possible TTP in light of the elevated bilirubin and concern for hemolysis in light of the microhematuria. However the patient's clinical picture does not fit this. He has a history of chronic alcohol use. His platelets were 141 which whilst lower is not critically low as in TTP levels. Platelets were 163 on admission on 04/05/2025. Additionally he does have a clear picture of chronic alcohol abuse and so alcoholic hepatitis fits the picture better. The hyperbilirubinemia is also more of a direct bilirubinemia and not an indirect bilirubinemia which would be what you would see if it was mainly due to hemolysis. I also spoke to the lab who reviewed the peripheral smear and there were no schistocytes present. * Gastroenterology therefore consulted as some concern this is likely due to acute alcoholic hepatitis. HIV and hepatitis serologyall negative * vancomycin dc'd. Complete a 5 day course of zosyn. * blood cultures negative * #Ascites likely due to acute alcoholic hepatitis * Patient's abdomen more distended today with positive fluid thrill. CT of the abdomen and pelvis therefore done today showed bilateral effusions with bibasilar atelectasis slightly worse on the left side with ascites and hepatomegaly as well as borderline splenomegaly * Will order diagnostic paracentesis but this likely due to the acute alcoholic hepatitis. * #Anemia: Hemoglobin today is 9.3. LDH was elevated but haptoglobin is normal and reticulocyte count is elevated at 2.89%. Will monitor closely. #Hypokalemia: Replace aggressively and monitor. Potassium is 3 today. magnesium WNL #Leukocytosis: WBC was 17 on admission and is now down to 14.1 today; Procalcitonin was elevated. Blood cultures are negative after 48 hours. Will complete a 5 day course of antibiotics as a precaution. #Hyponatremia: This is likely related to the alcoholic hepatitis. sodium is 135 today. #Alcohol use disorder * Patient at risk for withdrawal. 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 * On thiamine and folic acid. * On phenobarb taper and CIWA protocol. # Nicotine dependence: Counseled to quit. Nicotine patch as needed DVT prophylaxis: SCDs. Code status: full code Medications at Discharge Home Medications albuterol sulfate 90 mcg/actuation aerosol inhaler (Ventolin HFA) 1 inh inhalation Q6H PRN shortness of breath or wheezing #8.5 grams 04/11/25 furosemide 20 mg tablet (Lasix) 20 mg PO DAILY #30 tabs 04/11/25 potassium chloride 20 mEq tablet,extended release (K-Tab) 40 meq (2 x 20 mEq) PO DAILY #60 tabs 04/11/25 Hospital Course Operations None Procedures Paracentesis Summary of Care Provided Minutes Spent on Discharge: 45 Hospital Course: Patient is a 44-year-old malePast medical history as outlined was admitted to the ED on 04/06/2025 with a complaint of generalized malaise and jaundice with associated intermittent nausea and vomiting. Patient went about and was a very heavy drinker. He said he drank about 1 to 1.5 L of alcohol daily. He had been wondering whether his nausea and vomiting was related to withdrawal symptoms since he had not drank in a bed. He said he has started turning yellow about 3 to 4 days prior to admission. He also had a assisted weight loss of about 10 pounds in the past month. Review of systems otherwise negative. On admission he has significant leukocytosis with WBC of 17,000 and hemoglobin was 11.5 with an business banking sales assistant left shift. INR was 1.2. Sodium was 129 and potassium was 1.9. Creatinine was 0.92 and lactic acid was 2.3. Total bilirubin was elevated at 7.4 with direct bilirubin of 7.43. AST and ALT were also elevated. Urinalysis did not show any evidence of UTI and tox screen was negative. CT of the abdomen and pelvis done showed some mild wall thickening of the ascending and sigmoid colon similar to previous studies from 11/28/2024 and interval reduction of a tiny subcu abscess in the right inguinal region. He was admitted and managed for acute hepatitis likely due to alcohol. There was concern about possible TTP but this was ruled out by his bilirubinemia being mainly a direct bilirubinemia and his symptoms and lab findings being readily explained by his history of chronic alcohol use. He did have thrombocytopenia which eventually stabilized. Patient was placed on antibiotics and gastroenterology was consulted. Gastroenterology did not think that he needed steroids. His MELD score was elevated at 22 and Maddrey discriminant function score was also elevated at 29.72. Blood cultures came back negative so antibiotics were discontinued. Hospital course was complicated by hypokalemia which was aggressively replaced and eventually normalized. His white cell count trended down and normalized. He was placed on alcohol withdrawal protocol with phenobarbital with adjunctive meds for symptomatic relief, and thiamine and folic acid. Hospital course was also complicated by development of ascites for which he had paracentesis on 04/11/2025 with removal of 1.8 L of fluid. He was placed on p.o. Lasix 20 mg daily. Aldactone was not added on at his blood pressure was running low so there was concern for worsening hypotension. He was discharged home on p.o. potassium 40 mg daily. He is follow-up with his primary care doctor within 1 week for repeat BMP to monitor potassium levels. He was also encouraged to eat a potassium rich diet. He was referred to gastroenterology on outpatient basis and told that he would likely need a standing order for therapeutic paracentesis if his ascites recurred and he was to see his PCP or meringuer for this.Patient had a short beat run of V. tach during admission which was thought to be due to the hypokalemia. 2D echo was done which showed EF of 70% with no regional wall motion abnormalities and normal valves. Patient was seen and examined prior to discharge. His nurse was by his bedside as well as his mother. He had no active complaints. Review of systems otherwise negative. Labs and vitals reviewed. Home medication reviewed and reconciled. Physical Exam Const alert, oriented x3, no apparent distress and average body habitus; Negative for healthy appearing or well nourished Constitutional Narrative: jaundice is largely improved. General Appearance: cooperative and comfortable HEENT normocephalic, head/scalp atraumatic, hearing grossly normal bilaterally and moist oral mucous membranes Mouth: oral and palatal mucosa normal Eyes EOMs intact bilaterally; Negative for conjunctivae normal Eyes Narrative: Scleral icterus is present Neck supple and no JVD Neck Narrative: Trachea midline Lymph Lymphatic: no lymphedema noted Resp normal respiratory effort, normal air movement, no retractions, no use of accessory muscles and clear to auscultation bilaterally Resp Narrative: Diffusely diminished but clear Auscultation: Negative for rales, rhonchi or wheezes Cardio regular rate, regular rhythm, S1 normal heart sound, S2 normal heart sound and no murmurs Cardio Narrative: tachycardic. HR is 102. GI normal to inspection, nondistended, normoactive bowel sounds GI Narrative: palpable nontender hepatomegaly, which is resolving.no palpable splenomegaly abdomen moderately distended. Positive fluid thrill. Intact dressing over site of paracentesis Extremity normal capillary refill, no clubbing, cyanosis or edema and no calf tenderness Extremity Narrative: Pedal and radial pulses are 2+ General Extremity: no tenderness to palpation of joints or extremities Skin Skin Narrative: skin deeply jaundiced, though jaundice is improving General Skin Exam: no breakdown Neuro oriented x3, CN's II-XII intact bilaterally and moves all extremities Speech: speech normal Motor Exam: strength 5/5 throughout Psych thought process normal, cooperative and affect normal Appearance: appropriate Weight / BMI Weight Weight: 213 lb 13.574 oz Body Mass Index (BMI) 29.0 ABG / Lab / Microbiology Data 04/11/25 03:50 04/11/25 14:50 Laboratory: Laboratory Results - last 24 hr 04/11/25 03:50: WBC 12.2 H, RBC 2.54 L, Hgb 8.1 L, Hct 24.3 L, MCV 95.7 H, MCH 31.9, MCHC 33.3 D, RDW Std Deviation 56.5 H, RDW Coeff of Marco A 16.1 H, Plt Count 189, MPV 11.4, Immature Gran % (Auto) 1.900 H, Neut % (Auto) 84.2 H, Lymph % (Auto) 6.8 L, Fleming % (Auto) 5.5, Eos % (Auto) 1.1, Baso % (Auto) 0.5, Absolute Neuts (auto) 10.3 H, Absolute Lymphs (auto) 0.83, Nucleated RBC % 0, PT 16.9 H, INR 1.4, Sodium 134, Potassium 3.1 L, Chloride 101, Carbon Dioxide 22.1, Anion Gap 11, BUN 14, Creatinine 0.98, Estim Creat Clear Calc 113.72, Est GFR (MDRD) Non-Af 97, BUN/Creatinine Ratio 14.3, Glucose 133 H, Calcium 7.7, Magnesium 1.8, Total Bilirubin 3.96 H, AST 128 H, ALT 44, Alkaline Phosphatase 326 H, Total Protein 5.0 L, Albumin 2.4 L, Globulin 2.6, Albumin/Globulin Ratio 0.9 04/11/25 09:00: Fluid Source PARACENTESIS, Fluid Color YELLOW, Fluid Appearance SL CLDY, Fluid WBC 0.139, Fluid RBC 68, Fluid Tot Cell Count 0.172, Fld Polynuclear WBCs # 0.033, Fld Polynuclear WBCs % 23.7, Fluid Mononuclear WBCs 0.106, Fld Mononuclear WBCs % 76.3, Fluid Neutrophils 20, Fluid Lymphocytes 28, Fluid Monocytes 8, Fluid Macrophages 40, Fld Mesothelial Cells 4, Fl Pathologist Comment May follow, Fluid Glucose 118, Fluid Total Protein 1.8, Fluid LDH 86, Fluid Comment 2 SEE COMMENT 04/11/25 14:50: Sodium 131 L, Potassium Cancelled 04/11/25 14:50: Potassium 4.1, Chloride 100, Carbon Dioxide 23.4, Anion Gap 8, BUN 14, Creatinine 1.06, Estim Creat Clear Calc 105.13, Est GFR (MDRD) Non-Af 88, BUN/Creatinine Ratio 13.3, Glucose 109 H, Calcium 7.5 L Microbiology: Microbiology 04/06/25 05:45 Blood Culture (Wb) - Anticubital Right Blood Culture - Final No growth in 5 days. 04/06/25 05:50 Blood Culture (Wb) - Right Forearm Blood Culture - Final No growth in 5 days. Radiography Diagnostic Testing: Radiology Impression Paracentesis Ultrasound 04/11/25 08:00 IMPRESSION: Successful ultrasound-guided paracentesis. The patient tolerated the procedure well. Reading Location: [place] [address] Echocardiogram 04/11/25 12:10 Interpretation Summary The left ventricular ejection fraction is 70 %. Normal LV size. Structurally normal valves. Ordering Physician: Judi Souza Referring Physician: POLLY PCP Performed By: Monica Quevedo, JODI, RVT D/C Instructions Discharge Activity: Return to Normal Activity Weight Bearing Status: Weight bearing as tolerated Call your doctor if you observe: Fever of 101 or Higher, Shortness of breath and Swelling in the ankles DC O2, CPAP, BIPAP Needs Home O2 Discharge instructions: No DC home with Oxygen: No Meaningful Use Info Meaningful Use Meaningful Use Diagnoses (Choose all that apply): None applicable Discharge Plan Admission Admit Date/Time: 04/06/25 01:48 Primary Reason for Your Visit: acute alcoholic hepatitis Attending Provider: Judi Souza Primary Care Provider: Care Physician,No Primary Consulting Providers: Jagruti Barrientos; Stephane Garcia; Diony Houston; Nicolette Marrero; Ana Barney; Veronica Rosales Instructions Patient Instructions: NATALIA RN Paracentesis Dc Discharge Orders/Prescriptions Prescriptions: New furosemide [Lasix] 20 mg tablet 20 mg PO DAILY Qty: 30 2RF potassium chloride [K-Tab] 20 mEq tablet extended release 40 meq PO DAILY Qty: 60 1RF albuterol sulfate [Ventolin HFA] 90 mcg/actuation HFA aerosol inhaler 1 inh inhalation Q6H PRN (Reason: shortness of breath or wheezing) Qty: 8.5 1RF Discontinued albuterol sulfate [ProAir HFA] 1 PUFF inhaler 1 puff inhalation Q4H PRN PRN (Reason: Wheezing) Referrals / Follow Up: [facility] [Provider Group] - 04/12/25 11:00 am Referral Note: NEW PATIENT-PLEASE ARRIVE 15 MINUTES EARLY AND BRING A PHOTO ID AND INSURANCE CARD Diony Houston DO [Med Staff - Active Staff, Gastroenterology] - 04/16/25 12:30 pm Referral Note: APPOINTMENT WITH VERONICA Horowitz,No Primary [Primary Care Provider, Medical] Disposition Disposition (needs filled in before D/C Order can be placed): Home, Self Care Charges/Coding Visit Charges Inpatient E&M: 88939 Disch Hosp >30min
--- NOTE | 2025-04-11 17:03 | PHA.DC.MR.R ---
Pharmacy [place] Med Reconciliation Pharmacy Service has performed discharge medication reconciliation for this patient. The patient's discharge medication list was reviewed for discrepancies and discrepancies were resolved. Medications at Discharge Home Medications albuterol sulfate 90 mcg/actuation aerosol inhaler (Ventolin HFA) 1 inh inhalation Q6H PRN shortness of breath or wheezing #8.5 grams 04/11/25 furosemide 20 mg tablet (Lasix) 20 mg PO DAILY #30 tabs 04/11/25 potassium chloride 20 mEq tablet,extended release (K-Tab) 40 meq (2 x 20 mEq) PO DAILY #60 tabs 04/11/25
[2025-04-11 17:24] LABS: Prothrombin Time (Protime)PT. 17.1 SECONDS (11.7-14.9)
[2025-04-17 09:06] LABS: Pathologist Comment/Body Fluid Reviewed
== END 2025-04-11 18:26 | disposition home or self-care (01) | DRG 433 ==
LOC: ED 23:35 → PCU 04-06 02:55
PROVIDERS: Internal Medicine Gastroenterology; Admitting Provider Internal Medicine; Emergency Provider Specialist/Technologist Athletic Trainer; Visit Provider Student in an Organized Health Care Education/Training Program
DX: K70.11 Alcoholic hepatitis with ascites (principal); L02.214 Cutaneous abscess of groin; E87.20 Acidosis, unspecified; E87.1 Hypo-osmolality and hyponatremia; F10.20 Alcohol dependence, uncomplicated; D64.9 Anemia, unspecified; D69.6 Thrombocytopenia, unspecified; E87.6 Hypokalemia; E87.8 Other disorders of electrolyte and fluid balance, not elsewhere classified; F17.210 Nicotine dependence, cigarettes, uncomplicated; R80.9 Proteinuria, unspecified; Y90.0 Blood alcohol level of less than 20 mg/100 ml
CPT/HCPCS: 36415; 49083; 74176; 74177; 80048; 80053; 80074; 80076; 80202; 80307; 81001; 82077; 82248; 82533; 82945; 83010; 83605; 83615; 83735; 83930; 83935; 84100; 84132; 84145; 84157; 84300; 84443; 84550; 85025; 85045; 85610; 86703; 86880; 87040; 87641; 88108; 88305; 88313; 89050; 93306; 99252; 99283; 99406; Q9967; A4216; G0463

== ENCOUNTER 2025-04-12 12:46 | Emergency (ER) | payer MEDICAID, SELFPAY ==
[2025-04-12] VITALS (8 sets, daily range): BP systolic 90–106; BP diastolic 61–87; PULSE 91–106; RESP 16–20; TEMP 36.8–37.1; O2SAT 96–100; BMI 28.5
--- NOTE | 2025-04-12 13:35 | EKG12_ITS ---
Test Reason : SOB Blood Pressure : */* mmHG Vent. Rate : 93 BPM Atrial Rate : 93 BPM P-R Int : 152 ms QRS Dur : 96 ms QT Int : 360 ms P-R-T Axes : 47 -1 44 degrees QTcB Int : 447 ms Normal sinus rhythm Nonspecific T wave abnormality Abnormal ECG Confirmed by JIE GRIER, ANTHONY ([id number]), greeting card editor XAVI SHARMA ([id number]) on 04/15/2025 8:18:37 AM Referred By: Confirmed By: ANTHONY CERON MD
--- NOTE | 2025-04-12 13:40 | ED.VIS.DYS ---
HPI History of Present Illness Chief Complaint: Shortness of Breath Narrative Narrative: Chief complaint and HPI: 44-year-old male with recent diagnosis of acute alcoholic hepatitis presents for evaluation of abdominal distention and shortness of breath. History taken by patient as well as discharge summary on 04/11/2025. Patient states he was discharged from the hospital yesterday evening. States he had a paracentesis performed in which they took 2 L off. Patient states he started to develop abdominal distention with shortness of breath since the procedure. He was seen in the PCPs office who recommended him be evaluated in the emergency department and likely ultrasound paracentesis. He denies any fever, chills, abdominal pain, chest pain, nausea, vomiting. States he has noticed that his eyes are more jaundiced today. Review of systems: See HPI Medications: As listed on the chart Allergies: As listed on the chart PFSH: Per chart Vital signs: As listed on the chart. Reviewed. Physical exam: Gen: A&O x3, NAD Head: Normocephalic, atraumatic Eyes: Sclera icterus, conjunctiva clear, PERRL ENT: Moist mucous membranes Neck: Trachea midline CV: RRR, no murmurs Resp: Lungs CTA BL but diminished in the bases, no w/r/c GI: Abd soft, distended with ascites, non-tender, no r/r/g Musc: Full ROM, no deformity Skin: Warm, dry, jaundice Neuro: Alert, oriented, grossly intact, sensation intact Psych: Cooperative, appropriate mood and affect [facility] Medical History Dyshidrotic eczema Tobacco abuse Contact with and (suspected) exposure to other viral communicable diseases Home Medications Medication Instructions Recorded Last Taken Type albuterol sulfate 90 mcg/actuation 1 inh inhalation Q6H PRN shortness 04/11/25 Unknown Rx aerosol inhaler (Ventolin HFA) of breath or wheezing #8.5 grams furosemide 20 mg tablet (Lasix) 20 mg PO DAILY #30 tabs 04/11/25 Unknown Rx potassium chloride 20 mEq 40 meq (2 x 20 mEq) PO DAILY #60 04/11/25 Unknown Rx tablet,extended release (K-Tab) tabs Allergy/AdvReac Type Severity Reaction Status Date / Time No Known Allergies Allergy Verified 04/12/25 12:48 Family History no significant family his Surgical History no surgical history Social History household members: spouse housing: house current occupational status: employed current occupation: Owns a bar Smoking Status: Current every day smoker tobacco type: cigarettes alcohol intake: current alcohol intake frequency: 3 or more drinks per day Alcohol type: hard liquor substance use type: does not use EXAM Physical Exam Const Vital Signs: 04/12/25 12:46 04/12/25 13:37 04/12/25 13:46 Temperature 98.7 F Temperature Source Oral Pulse Rate 106 H 95 Respiratory Rate 20 H 18 Respiratory Effort Non-Labored Short of Breath Respiratory Depth Normal Respiratory Pattern Normal Blood Pressure 100/63 90/61 Blood Pressure Mean 75 70 Pulse Ox 98 96 Oxygen Delivery Method Room Air Room Air 04/12/25 14:00 04/12/25 14:54 04/12/25 15:00 Temperature Temperature Source Pulse Rate 92 92 91 Respiratory Rate 16 20 H Respiratory Effort Respiratory Depth Respiratory Pattern Blood Pressure 103/87 H 106/70 102/63 Blood Pressure Mean 92 82 76 Pulse Ox 98 100 96 Oxygen Delivery Method 04/12/25 16:00 04/12/25 16:13 Temperature 98.3 F Temperature Source Pulse Rate 92 92 Respiratory Rate 20 H 20 H Respiratory Effort Respiratory Depth Respiratory Pattern Blood Pressure 106/70 106/70 Blood Pressure Mean 82 82 Pulse Ox 96 96 Oxygen Delivery Method Room Air MDM MDM MDM Narrative Medical decision making narrative: 44-year-old male with recent diagnosis of acute alcoholic hepatitis presents for evaluation of abdominal distention and shortness of breath. History taken by patient as well as discharge summary on 04/11/2025. Patient states he was discharged from the hospital yesterday evening. States he had a paracentesis performed in which they took 2 L off. Patient states he started to develop abdominal distention with shortness of breath since the procedure. He was seen in the PCPs office who recommended him be evaluated in the emergency department and likely ultrasound paracentesis. Associated symptom is worsening scleral icterus. Denies any abdominal pain. On chart review, patient was admitted for acute alcoholic hepatitis. Had HIV and hepatitis testing that was negative. Differential diagnosis includes but is not limited to abdominal ascites, pleural effusion, hyperbilirubinemia, electrolyte abnormality. Laboratory workup ordered including chest x-ray. Patient has small left pleural effusion. CBC with leukocytosis of 14.8. This is up from 04/11 at 12.2 however prior to this his WBC was in the 14s. Patient has baseline anemia of 8.8, this is uptrending from yesterday. Platelets unremarkable. INR unremarkable. BMP shows hyponatremia of 132. Increasing from as 04/11 at 131. Potassium unremarkable. No LINA. Magnesium unremarkable. Hepatic panel shows AST elevation at 138, this is uptrending from 04/11 but down from 04/09. This is consistent with alcohol hepatitis. Patient has hyperbilirubinemia with a bilirubin of 4.25, uptrending from yesterday but down from 04/10. Direct bilirubin is 3.38, downtrending from 04/05 at 7.43. Albumin low at 2.3. Lipase unremarkable. Alcohol level unremarkable. Overall, patient's labs are stable. His shortness of breath is likely secondary to his small left pleural effusion and ascites in the abdomen. I did contact ultrasound to see if paracentesis would be available today. They personally spoke to the radiologist Dr. Ferreira. He stated that he would not perform paracentesis until next week as it is too early given that patient received this yesterday and barely got off 2 L. Given this information, I did contact the patient's primary care physician Dr. Whittaker who the patient's call today. He was updated on the recommendations of the radiologist as well as the laboratory workup. He agrees with discharge home and follow-up outpatient in his office. Patient already has an appointment to have a paracentesis next week. Patient was educated to return back to the ED if symptoms worsen or change. He confirmed understanding. Patient stable to discharge home. EKG: Interpreted by me/EM physician: EKG shows normal sinus rhythm with nonspecific T wave abnormalities. Heart rate 93 Diagnostic: Interpreted by me/EM physician: Chest x-ray shows small left pleural effusion. No pneumonia, pneumothorax, cardiomegaly. She in agreement. Impression: 1. Shortness of breath 2. Abdominal ascites 3. Small left pleural effusion 4. Recent diagnosis of alcoholic hepatitis 5. Hyperbilirubinemia secondary to #4 6. AST transaminitis secondary to #4 7. Mild hyponatremia Lab Data Labs: Laboratory Results - last 24 hr 04/12/25 04/12/25 13:32 13:58 WBC 14.8 H RBC 2.71 L Hgb 8.8 L Hct 26.8 L MCV 98.9 H MCH 32.5 H MCHC 32.8 RDW Std Deviation 57.0 H RDW Coeff of Marco A 15.9 H Plt Count 226 MPV 10.9 Immature Gran % (Auto) 1.300 H Neut % (Auto) 84.2 H Lymph % (Auto) 6.6 L [place] % (Auto) 6.4 Eos % (Auto) 1.0 Baso % (Auto) 0.5 Absolute Neuts (auto) 12.5 H Absolute Lymphs (auto) 0.98 Nucleated RBC % 0 PT 16.7 H INR 1.3 APTT 38.2 H Sodium 132 L Potassium 4.8 Chloride 102 Carbon Dioxide 21.2 Anion Gap 9 BUN 16 Creatinine 0.99 Estim Creat Clear Calc 111.75 Est GFR (MDRD) Non-Af 95 BUN/Creatinine Ratio 15.8 Glucose 103 H Calcium 8.0 Magnesium 1.8 Total Bilirubin 4.25 H Direct Bilirubin 3.38 H AST 138 H ALT 45 Alkaline Phosphatase 381 H Total Protein 5.4 L Albumin 2.3 L Globulin 3.0 Lipase 59 Ethyl Alcohol < 10.1 Radiography Diagnostic Testing: Clinical Impression(s) from Imaging Studies Chest X-Ray 04/12/25 13:45 IMPRESSION: Small left pleural effusion with left basilar atelectasis. Reading Location: [place] [id number] Discharge Plan Triage Chief Complaint: Shortness of Breath ED Provider: Hill Perales Dx/Rx/DC Orders Clinical Impression: Shortness of breath, Ascites Instructions: ED Dyspnea Prescriptions: No Action furosemide [Lasix] 20 mg tablet 20 mg PO DAILY Qty: 30 2RF potassium chloride [K-Tab] 20 mEq tablet extended release 40 meq PO DAILY Qty: 60 1RF albuterol sulfate [Ventolin HFA] 90 mcg/actuation HFA aerosol inhaler 1 inh inhalation Q6H PRN (Reason: shortness of breath or wheezing) Qty: 8.5 1RF Primary Care Provider: Grisel Whittaker Referrals: [facility] [Provider Group] - 3-5 Days Grisel Whittaker PA [Primary Care Provider, Medical] - 3-5 Days Activity Restrictions/Additional Instructions: Follow-up with your primary care physician. Call the office to make an appointment to be seen next week. Return back to ED if symptoms change or worsen. Outpatient paracentesis next week per your order. Print Language: Danish Disposition Disposition: Home, Self Care Discharge Date/Time: 04/12/25 16:19
[2025-04-12 13:44] LABS: Hematocrit 26.8 % (40-54); Hemoglobin 8.8 g/dL (13.0-16.5); Immature Granulocytes Count 0.190 X10^3/uL (0.0-0.0); Mean Corp Hgb Conc 32.8 g/dL (32-36); Mean Corpuscular Volume 98.9 fL (80-94); Mean Platelet Vol. 10.9 fl (6.2-12.0); NRBC Flagged by Analyzer 0 % (0-5); Platelet Count 226 K/mm3 (150-450); RBC Distribution Width CV 15.9 % (11.6-14.6); RBC Distribution Width SD 57.0 fl (35.1-43.9); Red Blood Count 2.71 M/mm3 (4.6-6.2); White Blood Count 14.8 K/mm3 (4.4-11.0)
--- NOTE | 2025-04-12 13:45 | RAD_ITS ---
PROCEDURE: CHEST PA AND LATERAL 04/12/2025 REASON FOR EXAM: SHORTNESS OF BREATH TECHNIQUE: Procedure Code: RADCXR Modality: DX Procedure: CHEST PA AND LATERAL COMPARISON: None FINDINGS: Hardware: EKG electrodes are seen. Heart: The heart size is normal. Mediastinum: The mediastinal contour is unremarkable. Lungs: Small left pleural effusion with left basilar atelectasis. Bones: The bones are unremarkable. RAD/Chest PA and Lateral IMPRESSION: Small left pleural effusion with left basilar atelectasis. Reading Location: [place] [id number]
[2025-04-12 14:00] LABS: Prothrombin Time (Protime)PT. 16.7 SECONDS (11.7-14.9)
[2025-04-12 14:01] LABS: Partial Thromboplast Time 38.2 Seconds (24.1-36.2)
[2025-04-12 14:10] LABS: AST(SGOT) 138 U/L (<=37); Alanine Aminotransfer ALT/SGPT 45 U/L (<=46); Albumin, Serum 2.3 g/dL (3.5-5.0); Alkaline Phosphatase 381 U/L (40-129); Anion Gap 9 (5-15); BUN 16 mg/dL (4-19); BUN/Creat Ratio 15.8 RATIO (10-20); Bilirubin, Direct 3.38 mg/dL (0.00-0.30); Calcium,Total 8.0 mg/dL (7.6-11.0); Carbon Dioxide 21.2 mmol/L (21.0-32.0); Chloride 102 mmol/L (98-108); Estimated Creatinine Clearance 111.75 ml/min (50-250); Globulin 3.0 g/dL (2.2-4.2); Glucose 103 mg/dL (70-99); Lipase 59 U/L (13-75); Magnesium 1.8 mg/dL (1.5-2.2); Potassium 4.8 mmol/L (3.3-5.1)
[2025-04-12 14:43] LABS: Alcohol, Blood (Medical)-Serum < 10.1 mg/dL (<=10.0)
== END 2025-04-12 16:19 | disposition home or self-care (01) ==
PROVIDERS: Emergency Provider Surgery; PCP Physician Assistant; Visit Provider Surgery
DX: R06.02 Shortness of breath (principal); E87.1 Hypo-osmolality and hyponatremia; F17.210 Nicotine dependence, cigarettes, uncomplicated; R18.8 Other ascites; J90 Pleural effusion, not elsewhere classified
CPT/HCPCS: 71046; 80048; 80076; 82077; 83690; 83735; 85025; 85610; 85730; 93005; 99284; A4216

== ENCOUNTER → 2025-04-16 | Outpatient (CLI) | payer MEDICAID, SELFPAY ==
[2025-04-16 10:48] LABS: Hematocrit 31.9 % (40-54); Hemoglobin 10.5 g/dL (13.0-16.5); Immature Granulocytes Count 0.160 X10^3/uL (0.0-0.0); Mean Corp Hgb Conc 32.9 g/dL (32-36); Mean Corpuscular Volume 99.1 fL (80-94); Mean Platelet Vol. 10.3 fl (6.2-12.0); NRBC Flagged by Analyzer 0 % (0-5); Platelet Count 392 K/mm3 (150-450); RBC Distribution Width CV 15.4 % (11.6-14.6); RBC Distribution Width SD 55.6 fl (35.1-43.9); Red Blood Count 3.22 M/mm3 (4.6-6.2); White Blood Count 17.4 K/mm3 (4.4-11.0)
[2025-04-16 10:57] LABS: Prothrombin Time (Protime)PT. 16.2 SECONDS (11.7-14.9)
[2025-04-16 10:58] LABS: Partial Thromboplast Time 39.5 Seconds (24.1-36.2)
[2025-04-16 11:12] LABS: Ammonia 39.9 umol/L (16-60)
[2025-04-16 11:16] LABS: AST(SGOT) 196 U/L (<=37); Alanine Aminotransfer ALT/SGPT 78 U/L (<=46); Albumin, Serum 2.8 g/dL (3.5-5.0); Alkaline Phosphatase 597 U/L (40-129); Anion Gap 10 (5-15); BUN 18 mg/dL (4-19); BUN/Creat Ratio 18.5 RATIO (10-20); Calcium,Total 8.6 mg/dL (7.6-11.0); Carbon Dioxide 19.6 mmol/L (21.0-32.0); Chloride 108 mmol/L (98-108); Globulin 3.6 g/dL (2.2-4.2); Glucose 91 mg/dL (70-99); Potassium 5.4 mmol/L (3.3-5.1)
== END | disposition home or self-care (01) ==
PROVIDERS: PCP Physician Assistant; Referring Provider Internal Medicine Gastroenterology; Visit Provider Internal Medicine Gastroenterology
DX: B17.9 Acute viral hepatitis, unspecified (principal)
CPT/HCPCS: 36415; 80053; 82140; 85025; 85610; 85730

== ENCOUNTER → 2025-04-23 | Outpatient (CLI) | payer MEDICAID, SELFPAY ==
[2025-04-23 14:33] LABS: Hematocrit 34.4 % (40-54); Hemoglobin 11.4 g/dL (13.0-16.5); Immature Granulocytes Count 0.090 X10^3/uL (0.0-0.0); Mean Corp Hgb Conc 33.1 g/dL (32-36); Mean Corpuscular Volume 96.6 fL (80-94); Mean Platelet Vol. 10.4 fl (6.2-12.0); NRBC Flagged by Analyzer 0 % (0-5); Platelet Count 353 K/mm3 (150-450); RBC Distribution Width CV 14.0 % (11.6-14.6); RBC Distribution Width SD 48.7 fl (35.1-43.9); Red Blood Count 3.56 M/mm3 (4.6-6.2); White Blood Count 13.8 K/mm3 (4.4-11.0)
[2025-04-23 14:50] LABS: Prothrombin Time (Protime)PT. 16.7 SECONDS (11.7-14.9)
[2025-04-23 15:05] LABS: AST(SGOT) 181 U/L (<=37); Alanine Aminotransfer ALT/SGPT 73 U/L (<=46); Albumin, Serum 3.4 g/dL (3.5-5.0); Alkaline Phosphatase 717 U/L (40-129); Ammonia 39.7 umol/L (16-60); Anion Gap 12 (5-15); BUN 20 mg/dL (4-19); BUN/Creat Ratio 21.1 RATIO (10-20); Calcium,Total 9.0 mg/dL (7.6-11.0); Carbon Dioxide 21.5 mmol/L (21.0-32.0); Chloride 101 mmol/L (98-108); Globulin 4.0 g/dL (2.2-4.2); Glucose 128 mg/dL (70-99); Potassium 4.3 mmol/L (3.3-5.1)
== END | disposition home or self-care (01) ==
LOC: LAB 14:13
PROVIDERS: PCP Physician Assistant; Referring Provider Internal Medicine Gastroenterology; Visit Provider Internal Medicine Gastroenterology
DX: K70.10 Alcoholic hepatitis without ascites (principal)
CPT/HCPCS: 36415; 80053; 82140; 85025; 85610

== ENCOUNTER → 2025-04-30 | Outpatient (CLI) | payer MEDICAID, SELFPAY ==
[2025-04-30 14:15] LABS: Hematocrit 34.5 % (40-54); Hemoglobin 11.8 g/dL (13.0-16.5); Immature Granulocytes Count 0.040 X10^3/uL (0.0-0.0); Mean Corp Hgb Conc 34.2 g/dL (32-36); Mean Corpuscular Volume 94.3 fL (80-94); Mean Platelet Vol. 9.5 fl (6.2-12.0); NRBC Flagged by Analyzer 0 % (0-5); Platelet Count 303 K/mm3 (150-450); RBC Distribution Width CV 13.2 % (11.6-14.6); RBC Distribution Width SD 45.6 fl (35.1-43.9); Red Blood Count 3.66 M/mm3 (4.6-6.2); White Blood Count 9.4 K/mm3 (4.4-11.0)
[2025-04-30 14:26] LABS: Prothrombin Time (Protime)PT. 14.6 SECONDS (11.7-14.9)
[2025-04-30 14:27] LABS: Partial Thromboplast Time 37.0 Seconds (24.1-36.2)
[2025-04-30 14:39] LABS: Ammonia 44.5 umol/L (16-60)
[2025-04-30 14:40] LABS: AST(SGOT) 117 U/L (<=37); Alanine Aminotransfer ALT/SGPT 72 U/L (<=46); Albumin, Serum 3.7 g/dL (3.5-5.0); Alkaline Phosphatase 592 U/L (40-129); Anion Gap 11 (5-15); BUN 15 mg/dL (4-19); BUN/Creat Ratio 15.0 RATIO (10-20); Calcium,Total 9.4 mg/dL (7.6-11.0); Carbon Dioxide 21.5 mmol/L (21.0-32.0); Chloride 104 mmol/L (98-108); Globulin 3.9 g/dL (2.2-4.2); Glucose 93 mg/dL (70-99); Potassium 4.5 mmol/L (3.3-5.1)
[2025-04-30 14:40] LABS: Cholesterol 268 mg/dL (<=200); Low Density Lipoprotein Calc. 214 mg/dL; Triglycerides 88 mg/dL; Very Low Density Lipoprotein 18 mg/dL (5-40); cholesterol:hdl ratio screen 6.91
== END | disposition home or self-care (01) ==
LOC: LAB 13:49
PROVIDERS: PCP Physician Assistant; Referring Provider Internal Medicine Gastroenterology; Visit Provider Internal Medicine Gastroenterology
DX: Z13.1 Encounter for screening for diabetes mellitus (principal); Z13.220 Encounter for screening for lipoid disorders
CPT/HCPCS: 36415; 80053; 80061; 82140; 83036; 85025; 85610; 85730

== ENCOUNTER → 2025-05-03 | Outpatient (CLI) | payer MEDICAID, SELFPAY ==
--- NOTE | 2025-05-03 14:52 | MRI_ITS ---
PROCEDURE: MRCP ABDOMEN WITHOUT CONTRAST 05/03/2025 REASON FOR EXAM: ELEVATED LFTS. Dx: Alcoholic hepatitis without ascites and jaundice. TECHNIQUE: Procedure Code: MRIMRCP Modality: MR Procedure: MRCP ABDOMEN WITHOUT CONTRAST Multiplanar and multisequence images were obtained. COMPARISON: CT Abdomen and Pelvis w/o contrast, 04/10/2025 CT Abdomen and Pelvis w/Contrast, 04/05/2025 and 11/28/2024 FINDINGS: LUNG BASES: Previously seen pleural effusions have nearly resolved, currently only trace. LIVER: Enlarged measuring 21.1 cm in length. Patchy geographic low T2 signal is seen predominantly in the right lobe, most pronounced posteriorly. These areas remain low signal on fat suppressed imaging, suggesting parenchymal heterogeneity rather than focal fat or artifact. These areas correspond to regions of low-density seen on the prior CT dated 04/05/2025, not present on the CT dated 11/28/2024. No discrete mass or biliary obstruction is evident on the available sequences. GALLBLADDER: No gallstones. No wall thickening. Minimal pericholecystic fluid, which has improved. BILE DUCTS: No ductal dilation or intraluminal filling defects. PANCREAS: Unremarkable. No ductal dilation. SPLEEN: Enlarged measuring 15.6 cm in length. ADRENAL GLANDS: Unremarkable. KIDNEYS: Unremarkable. No hydronephrosis or mass. STOMACH AND BOWEL: No obstruction. RETRO/PERITONEUM: Ascites has significantly improved and is now mild. LYMPH NODES: No lymphadenopathy. VASCULATURE: No aortic aneurysm. ABDOMINAL WALL AND SOFT TISSUES: Unremarkable. BONES: No acute osseous abnormality seen. MRI/MRCP Abdomen without Contrast IMPRESSION: 1. Hepatomegaly with patchy geographic low T2 signal in the right lobe, most c onsistent with parenchymal injury/remodeling related to alcoholic hepatitis. Findings correspond to new areas of low attenu ation on recent CT (04/05/2025). 2. Interval improvement of ascites and bilateral pleural effusions. 3. No biliary obstruction or MRCP abnormality. 4. Splenomegaly, possibly due to portal hypertension. Reading Location: [id number]
== END | disposition home or self-care (01) ==
LOC: MRI 14:48
PROVIDERS: PCP Physician Assistant; Referring Provider Internal Medicine Gastroenterology; Visit Provider Internal Medicine Gastroenterology
DX: K70.10 Alcoholic hepatitis without ascites (principal); R79.89 Other specified abnormal findings of blood chemistry
CPT/HCPCS: 74181

== ENCOUNTER → 2025-05-07 | Outpatient (CLI) | payer MEDICAID, SELFPAY | END | disposition home or self-care (01) | LOC: LAB 16:42 | PROVIDERS: PCP Physician Assistant; Referring Provider Internal Medicine Gastroenterology; Visit Provider Internal Medicine Gastroenterology | DX: Z00.00 Encounter for general adult medical examination without abnormal findings (principal) ==